=== PATIENT | female | born 1985 | race Caucasian/White ===

== ENCOUNTER → 2016-08-24 | Outpatient (CLI) | payer OTHER ==
[~2016-08-24] MED LIST: ACETAMINOHPEN/C1 TAB PO; ADVAIR 250/501 EA INH; ADVAIR 500/501 E1 INH; ALBUTEROL0.09 MG/A2 IH; ALBUTEROL0.09 MG/A2 INH; ALLERGY RELIEF10 M1 PO; ANAPROX DS550 MG PO; ASPIR LOW81 MG PO; ASPIRIN ENTERIC81 M1 PO; AUGMENTIN 875 M1 TA1 PO; BACTROBAN CREAM15 GM PO; BACTROBAN22 TP; BENADRYL50 MG PO; BENTYL10 MG PO; BREO ELLIPTA 21 EACH IH; BUSPAR5 MG PO; CARAFATE1 G1 PO; CARDIZEM CD240 M1 PO; CARTIA XT120 MG PO; CEFEPIME1 GM/50 ML IV; CEFTIN250 MG PO; CEFTRIAXON1 GM/50 ML IV; CEFTRIAXON2 GM/50 ML IV; CEFTRIAXONE2 G1 IV; CEFUROXIME AXE250 MG PO; CENTRUM COMPLE1 EACH PO; CEPHALEXIN500 M1 PO; CILOXAN 10 ML10 ML OP; CILOXAN 5 ML5 ML OT; CIPRO250 MG PO; CIPRO500 MG PO; CIPRO750 MG PO; CIPROFLOXACIN500 MG PO; CLARITIN10 MG PO; CLINDAMYCIN150 MG PO; COMBIVENT1 ARO IH; CORDROL20 MG PO; CYCLOBENZAPRINE10 MG PO; Carafate1 GM PO; DARVOCET N 1001 TAB PO; DELTASONE20 MG PO; DIFLUCAN150 MG PO; DILTIAZEM ER240 M1 PO; DILTIAZEM HCL120 M2 PO; DILTIAZEM HYDR180 M2 PO; DOXYCYCLINE HY100 M5 PO; DOXYCYCLINE MO100 M1 PO; DOXYCYCLINE MO100 MG PO; DOXYCYCLINE100 M3 PO; DOXYCYCLINE100 MG PO; DUONEB 3 MG/3 ML3 M1 INH; EFFEXOR25 MG; EFFEXOR25 MG PO; ESTER-C 1,0001 EACH PO; FLAGYL500 M1 IV; FLEXERIL10 MG PO; FLONASE 0.05% 121 EA NAS; FLONASE ALLERG9.9 ML NS; FLONASE0.05 MG/AC NS; FLOVENT 220 M220 MCG INH; FLOVENT0.044 MG/A IH; FUROSEMIDE40 MG PO; HEPARIN LOCK F1 U/ML IV; HYDROCODONE BIT1 T11 PO; IBU-8800 MG PO; KEFLEX500 MG PO; LAMICTAL1 TAB PO; LAMICTAL150 MG PO; LAMICTAL200 MG PO; LAMICTAL25 MG PO; LASIX40 MG PO; LATUDA PO; LEVAQUIN750 M1 PO; LEVOFLOXACIN500 MG PO; MACROBID100 M1 PO; MAXIPIME1 GM IV; MEDROL DOSEPAK4 MG PO; MIRALAX POWDER255 GM PO; MOTRIN600 MG PO; MOTRIN800 MG PO; Motrin,Rufen400 MG PO; Motrin,Rufen800 MG PO; NASAL SPRAY 1515 ML NAS; NKHM; NORCO 10-325 T1 EACH PO; OMEPRAZOLE40 MG PO; OMNICEF300 MG PO; ORASONE20 MG PO; OSPHENA60 M1 PO; OSTERA TABLET1 EACH PO; PEPCID20 MG PO; PERCOCET 325 MG1 TA7 PO; PHENERGAN W/DM120 ML PO; PHENERGAN25 M1 PO; PREDNICOT10 MG PO; PREDNICOT20 MG PO; PREDNISONE10 MG PO; PREDNISONE20 MG PO; PREDNISONE5 MG PO; PRILOSEC20 M1 PO; PRILOSEC40 M1 PO; PRILOSEC40 MG PO; PROAIR HFA0.09 MG/AC IH; PROAIR HFA0.09 MG/AC INH; PROTONIX20 MG PO; PROTONIX40 M1 PO; PROVENTIL0.09 MG/A1 INH; PYRIDIUM200 M1 PO; PYRIDIUM200 MG PO; Phenergan25 MG PO; SAPHRIS PO; SAPHRIS5 MG PO; SAPHRIS5 MG SL; SEROQUEL50 MG PO; SINGULAIR10 M1 PO; SINGULAIR10 MG PO; STERAPRED DS10 MG PO; TESSALON PERLE100 M1 PO; TOBREX OPHTH O3.5 GM OPH; TRAMADOL HCL50 MG PO; TRAZODONE100 MG PO; TRIAMCINOLONE AC0.1% T; TYLENOL WITH CO1 TA1 PO; Tobradex 0.3-0.15 ML OT; ULTRAM50 MG PO; VENTOLIN H0.09 MG/AC INH; VENTOLIN,PR2 MG/5 ML INH; VENTOLIN0.09 MG/AC INH; VIBRA-TAB100 M1 PO; VIBRA-TAB100 MG PO; VIBRAMYCIN100 M1 IV; VIBRAMYCIN100 MG PO; VICODIN 5-3001 EACH PO; VICODIN 5/500 505 MG PO; VICODIN 500 MG-1 TAB PO; VICODIN ES 7501 TA1 PO; VICODIN1 TAB PO; VITAMIN D10000 UNIT PO; VITAMIN D350000 UNIT PO; VITAMIN D50000 I3 PO; VOLTAREN50 M1 PO; VOLTAREN50 MG PO; Ventolin 02.5 MG/3 M NEB; Vibra-Tab100 MG PO; XANAX0.5 MG PO; XANAX1 MG PO; XARE20MG PO; ZANAFLEX4 M2 PO; ZANTAC 300300 MG PO; ZANTAC150 MG PO; ZITHROMAX Z PA250 MG PO; ZITHROMAX250 MG PO; ZOFRAN ODT4 MG SL; ZOFRAN4 MG PO; ZYRTEC10 MG PO; Zofran4 MG PO
== END | disposition home or self-care (01) ==
LOC: MEDIPORT 02:15
DX: I87.8 Other specified disorders of veins (principal)

== ENCOUNTER 2016-09-13 19:51 | Emergency (ER) | payer OTHER ==
[~2016-09-13] VITALS: Ht 175.2 cm; Wt 115.7 kg
[2016-09-13] MEDS ORDERED: ZITHROMAX250 MG PO (21:29)
[2016-09-13] MEDS ORDERED: TOBREX OPHTH O3.5 GM OPH (21:29)
[2016-09-13] MEDS ORDERED: Bactroban Oint22 GM T (21:29)
== END 2016-09-13 21:29 | disposition home or self-care (01) ==
LOC: ED 19:51
DX: S30.861A Insect bite (nonvenomous) of abdominal wall, initial encounter (principal); H00.014 Hordeolum externum left upper eyelid; L02.211 Cutaneous abscess of abdominal wall; K21.9 Gastro-esophageal reflux disease without esophagitis; Z88.0 Allergy status to penicillin; Z88.1 Allergy status to other antibiotic agents; Z88.2 Allergy status to sulfonamides; Z91.018 Allergy to other foods; Z79.899 Other long term (current) drug therapy; W57.XXXA Bitten or stung by nonvenomous insect and other nonvenomous arthropods, initial encounter; Y93.89 Activity, other specified; Y92.9 Unspecified place or not applicable; Y99.9 Unspecified external cause status

== ENCOUNTER 2016-09-21 16:17 | Emergency (ER) | payer OTHER ==
[~2016-09-21] VITALS: Ht 170.1 cm; Wt 113.4 kg
--- NOTE | ~2016-09-21 | EKG ---
[place], [place] ELECTROCARDIOGRAM REPORT [id number] UNIT #: [id number] ROOM: DOCTOR: DONATO FLORES MD BIRTHDATE: [birth year] DOS: 09/21/2016 TIME: 1659 hours. FINDINGS: 1. Normal sinus rhythm at a rate of 92. 2. Normal EKG. DNOATO FLORES MD CM:EKGRPT:ELECTROCARDIOGRAM REPORT [id number] DONATO FLORES MD
[~2016-09-21 16:17] MED LIST changes: +Bactroban Oint22 GM T
[2016-09-21 17:10] LABS: BASO # 0.1 10*3/uL (0.0-0.1); BASO % 0.7 % (0.0-1.0); EOS # 0.1 10*3/uL (0.0-0.4); EOS % 1.4 % (1.0-4.0); HEMATOCRIT 43.8 % (37.0-47.0); HEMOGLOBIN 14.2 g/dl (12.0-16.0); LYMPH # 2.8 10*3/uL (1.3-4.4); LYMPH % 33.2 % (27.0-41.0); MEAN CELL VOLUME 84.2 fl (81.0-99.0); MEAN CORPUSCULAR HGB 27.3 pg (27.0-31.0); MEAN CORPUSCULAR HGB CONC 32.4 g/dl (33.0-37.0); MEAN PLATELET VOLUME 9.3 fl (9.6-12.3); MONO # 0.5 10*3/uL (0.1-1.0); MONO % 5.4 % (3.0-9.0); NEUT % 59.1 % (47.0-73.0); PLATELET COUNT AUTOMATED 289 10*3/uL (130-400); RED CELL DISTRI WIDTH 13.7 % (0-14.5); WHITE BLOOD COUNT 8.5 10*3/uL (4.8-10.8)
[2016-09-21 17:18] LABS: PROTHROMBIN TIME 10.3 SECONDS (9.0-12.4)
[2016-09-21 17:26] LABS: ALBUMIN 4.1 gm/dl (3.1-4.5); ALKALINE PHOSPHATASE 129 U/L (45-117); BILIRUBIN, TOTAL 0.5 mg/dl (0.2-1.0); BUN 14 mg/dl (7-24); CARBON DIOXIDE 23 mmol/L (21-32); CHLORIDE 110 mmol/L (98-107); CPK 34 U/L (26-192); EST GLOM FILT AFRICAN AMERICAN > 60 ml/min; GLUCOSE 87 mg/dL (65-99); MAGNESIUM 2.3 mg/dL (1.5-2.1); POTASSIUM 4.2 mmol/L (3.5-5.1); SGOT/AST 9 IU/L (3-35); SGPT/ALT 17 U/L (12-78); SODIUM 144 mmol/L (136-145); TOTAL PROTEIN 8.1 gm/dL (6.4-8.2)
[2016-09-21 17:28] LABS: CKMB < 0.5 ng/ml (0.5-3.6); TROPONIN I < 0.015 ng/ml (<0.045)
== END 2016-09-21 18:40 | disposition home or self-care (01) ==
LOC: ED 16:17
PROVIDERS: Registered Nurse
DX: R07.89 Other chest pain (principal); M94.0 Chondrocostal junction syndrome [Tietze]; Z88.0 Allergy status to penicillin; Z88.1 Allergy status to other antibiotic agents; Z91.018 Allergy to other foods; Z88.8 Allergy status to other drugs, medicaments and biological substances; Z79.899 Other long term (current) drug therapy

== ENCOUNTER → 2016-10-14 | Outpatient (CLI) | payer OTHER ==
[~2016-10-14] MED LIST changes: +CLEOCIN HCL300 MG PO; +ZANTAC 150150 MG PO
== END | disposition home or self-care (01) ==
LOC: MEDIPORT 10-10 08:00
DX: Z45.2 Encounter for adjustment and management of vascular access device (principal)

== ENCOUNTER 2016-10-17 10:21 | Inpatient (IN) | payer OTHER ==
[~2016-10-17] VITALS: Ht 160 cm; Wt 116.3 kg
--- NOTE | ~2016-10-17 | PR ---
[place], [place] PROGRESS NOTE NAME: GUANACO HAIR [facility] #: [id number] UNIT #: [id number] ROOM: 407 DOCTOR: MEHDI JEAN MD,MIGUEL A BIRTHDATE: [birth year] DOS: 10/20/2016 PULMONARY PROGRESS NOTE SUBJECTIVE: The patient was seen and examined on 10/20/2016, resting comfortably in the bed, reduction and improvement in symptoms of coughing and wheezing as well as shortness of breath was noted. OBJECTIVE: VITAL SIGNS: Normal temperature, respiratory rate 18, heart rate 83, blood pressure 134/90. Pulse oxygen saturation on room air 96% saturation. HEENT: Examination shows no acute change. NECK: Supple. CARDIOVASCULAR: S1, S2 audible. LUNGS: Noted without any wheezing or crackles at the present time. ABDOMEN: Soft, nontender. IMPRESSION: Resolving acute tracheobronchitis and exacerbation of bronchial asthma with current medical management. The culture of the sputum preliminary showing normal miguel angel on 10/18/2016, final culture results were pending. PLAN OF TREATMENT: Discharge the patient on oral antibiotics, bronchodilators and continue other previous treatment. Outpatient followup appointment to be established post-discharge. MIGUEL A HARDING MD CM:ISIS [id number] MIGUEL A JEAN MD 10/21/167 interface
--- NOTE | ~2016-10-17 | PR ---
[place], [place] PROGRESS NOTE NAME: GUANACO HAIR [facility] #: [id number] UNIT #: [id number] ROOM: 407 DOCTOR: ROULA BAER MD BIRTHDATE: [birth year] DOS: 10/20/2016 SUBJECTIVE: The patient states that she feels good, does not have any complaints, wants to go home because it is her kids last day at school. OBJECTIVE: VITAL SIGNS: Graphic trend shows a pressure 113/72, pulse of 80, respirations 18, temperature 98.3. LUNGS: Diminished breath sounds. HEART: Regular. ABDOMEN: Soft. EXTREMITIES: Without any edema. LABORATORY DATA: Sputum culture preliminary shows normal miguel angel. Glucose 79, BUN 12, creatinine 0.65. Electrolytes were normal. WBC count is 7.8, hemoglobin 12.6, hematocrit 39.5. ASSESSMENT AND PLAN: 1. Acute exacerbation of asthma. The patient is doing much improved. She did receive her nebulizer yesterday, breathing treatments and Pulmicort will be started. 2. History of MediPort placement. The MediPort site looks fine. She does not need any IV antibiotics. The plan is to discharge her to home today. ROULA BAER MD CM:PNTRANS [id number] ROULA BAER MD 10/20/162043 interface
--- NOTE | ~2016-10-17 | WRIGHTHP ---
[place], [place] PATIENT HISTORY AND PHYSICAL EXAM NAME: GUANACO HAIR [facility] #: [id number] UNIT #: [id number] ROOM: 407 DOCTOR: ROULA BAER MD BIRTHDATE: [birth year] DOS: 10/18/2016 HISTORY OF PRESENT ILLNESS: The patient is not known to me. She is 30 years old and has had multiple admissions to the hospital over the last several years. She currently follows with Dr. 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 Hutchinson, who advised admission, she came to the Emergency Room where she was evaluated. Chest x-ray was negative. She was admitted with acute respiratory distress. She denies having any chest pains, palpitations, does not have any fever or chills. The patient states that her nebulizer has not been working and so she has not been taking any breathing treatments at all. PAST MEDICAL HISTORY: Significant for, 1. Moderate intermittent asthma. 2. Noncompliance and poor insight to medical problems. MEDICATIONS: Singulair, omeprazole, and Symbicort. SOCIAL HISTORY: Nonsmoker, does not use any alcohol. She has 2 children. She lives with her boyfriend. She states that her mother is healthy. She does not know the whereabouts of her father and her stepsiblings all healthy. PHYSICAL EXAMINATION: GENERAL: She is a well-built white female in no distress. VITAL SIGNS: Shows a blood pressure 142/70, pulse of 80, respirations 16, afebrile. HEAD AND NECK: Negative. LUNGS: Diminished breath sounds, scattered wheezes heard bilaterally. HEART: Regular. ABDOMEN: Obese. EXTREMITIES: Without any edema. ASSESSMENT AND PLAN: 1. The patient who presents with increased shortness of breath for the last few days with acute exacerbation of bronchial asthma. The patient is on maximal treatment ____ with bronchodilators and Singulair. We will add steroids, antibiotics and breathing treatments and asked whether she would need a prescription for nebulizer, she declined. 2. Noncompliance with poor insight to medical problems. Discussed with case management. They recommended that she get a nebulizer for the future use at home, hopefully we can avoid repeated admissions she has had over the years. Dr. Hutchinson has been consulted. [place], [place] PATIENT HISTORY AND PHYSICAL EXAM [facility]: [id number] UNIT #: [id number] ROOM: 407 DOCTOR: ROULA BAER MD BIRTHDATE: [birth year] ROULA BAER MD CM:HISPHYS:PATIENT HISTORY AND PHYSICAL EXAMINATION 213 ROULA BAER MD 10/19/16 0049 interface
--- NOTE | ~2016-10-17 | DS ---
[place], [place] DISCHARGE SUMMARY NAME: GUANACO HAIR [facility] #: [id number] UNIT #: [id number] ROOM: 407 DOCTOR: ROULA BAER MD BIRTHDATE: [birth year] DOS: 10/20/2016 DIAGNOSES: 1. Moderate in persistent asthma with acute exacerbation. 2. History of MediPort placement. 3. Noncompliance with poor insight to medical problems. HOSPITAL COURSE: This patient is 30 years old, comes in with complaints of difficulty breathing. The patient does not have a working nebulizer at home, has not taken any breathing treatments for a while. She was seen by Dr. Hutchinson recommended admission. After admission, the patient had normal lactic acid, normal white cell count. Blood cultures were done. Sputum cultures were done and they have all come back negative. Chest x-ray shows no evidence of any pneumonia. The patient was placed on steroids, breathing treatments. There has been improvement in her bronchospasm. White cell count continues to remain normal. Comprehensive showed of unknown etiology, which is improved and become normal. The patient is stable today. She is requesting she be discharged and so arrangements are being made. DISCHARGE MEDICATIONS: Pulmicort 0.5 twice a day, doxycycline 100 b.i.d. for 7 days, prednisone tapering dose, Xanax 0.5 t.i.d. p.r.n., DuoNeb q.4, loratadine 10 daily, Singulair 10 daily, multivitamin one tablet daily, Tessalon Perles t.i.d. p.r.n., ranitidine 150 at bedtime, albuterol 2 puffs q.i.d. p.r.n. ROULA BAER MD CM:DISCHARG 0800 [id number] ROULA BAER MD 10/20/16 1514 interface
--- NOTE | ~2016-10-17 | CON ---
[place], [place] REPORT OF CONSULTATION NAME: GUANACO HAIR [facility] #: [id number] UNIT #: [id number] ROOM: 407 DOCTOR: MIGUEL A MAYA MD BIRTHDATE: [birth year] DOS: 10/18/2016 CONSULTATION REQUESTED BY: Dr. Malina Abreu. REASON FOR CONSULTATION: To assess the patient for ongoing acute exacerbation of bronchial asthma. HISTORY OF PRESENT ILLNESS: A 30-year-old white female who has been known to me. She was seen in my office earlier this week and noted with acute exacerbation of bronchial asthma and acute bronchitis. She only choose to take the antibiotics for this patient not to corticosteroids. The patient's symptoms were worsened, not responding to treatment, requiring assessment in the Emergency Room on 10/17/2016. The patient was noted with progressive worsening of respiratory symptoms with acute exacerbation of bronchial asthma and was hospitalized for further medical management. The patient denies any symptoms of chest pain. Cough has been noted with minimal sputum expectoration. Continuous wheezing was noted, tightness in the chest, shortness of breath at rest and with exertion. REVIEW OF SYSTEMS: CONSTITUTIONAL: Denies symptoms of chills, but complains of low-grade fever at home and also reported to fatigue and tiredness. EYES: Denies any burning, redness, or tenderness. EARS, NOSE, AND THROAT: Denies sore throat, hoarseness, otalgia, postnasal drainage or epistaxis. CARDIOVASCULAR: Denies anginal pain, edema or pain of the lower extremities. GASTROINTESTINAL: Denies dysphagia, nausea, vomiting, diarrhea, abdominal pain, hematemesis, melena, or hematochezia. SKIN: Denies any lesions or rashes. MUSCULOSKELETAL: Denies acute joint pain, redness, or tenderness. CENTRAL NERVOUS SYSTEM: Denies any seizures, dizziness, or headache. Remaining systems were reviewed with the patient, they were noted all negative. PAST MEDICAL HISTORY: 1. History of uncomplicated severe persistent bronchial asthma. 2. Allergic rhinitis. 3. Obstructive sleep apnea disorder for patient presently noncompliant with the treatment. 4. Chronic moderate to severe obesity. 5. Gastroparesis, chronic and severe. 6. History of type 2 diabetes mellitus. 7. Allergic rhinitis. 8. History of recurrent aspiration. 9. Atrial fibrillation with chronic anticoagulation. 10. Thrombophlebitis related to PICC, resolved. 11. Poor peripheral venous access. PAST SURGICAL HISTORY: 1. MediPort insertion and removal x4. 2. Hiatal hernia surgery repair. [place], [place] REPORT OF CONSULTATION [facility] [id number] UNIT #: [id number] ROOM: 407 DOCTOR: MEHDI JEAN MD,MIGUEL A BIRTHDATE: [birth year] 3. Complete hysterectomy. 4. T and A. 5. Bilateral ear tube insertion. 6. Sling for the prolapsed bladder. 7. Several therapeutic bronchoscopy. 8. Past PICC line insertion. 9. Multiple upper endoscopies. SOCIAL HISTORY: The patient is , has 2 children, lives at home. Denies history of alcohol or illicit drug use. FAMILY HISTORY: The patient was noted both parents living without any known medical illnesses. CURRENT MEDICATIONS ADMINISTERED: Noted use of Singulair, loratadine, DuoNeb. IV Solu-Medrol, not taken by the patient. Xanax, doxycycline intravenously. ALLERGIES: The drug allergy history was noted as allergy. 1. PENICILLIN. 2. SULFA DRUGS. 3. CIPROFLOXACIN. 4. BIAXIN. 5. RAGLAN. 6. DULERA. PHYSICAL EXAMINATION: GENERAL: A 30-year-old female who has been noted currently awake and alert without any distress. Height of 5 feet 7 inches, weight of 256 pounds, BMI of 45.4. VITAL SIGNS: Normal temperature, respiratory rate 16-20, heart rate 78-102, blood pressure 120/76-113/61. Pulse oxygen saturation of the patient noted on room air 97% saturation. HEENT: Examination shows head is atraumatic. Eyes nonicterus. NECK: Supple. CARDIOVASCULAR: S1, S2 is audible. LUNGS: The patient is noted without any crackles. Moderate expiratory wheezing. ABDOMEN: Soft, obese, nontender. EXTREMITIES: Show no edema, clubbing or cyanosis. LABORATORY DATA: The CBC of the patient on yesterday shows WBC count of 6.9, hemoglobin, hematocrit and platelet count was normal. Lactic acid yesterday 1.1. PT/PTT were normal. CMP of the patient yesterday noted as normal in general. Chest x-ray 1 view shows MediPort in place on the left side without any acute pulmonary infiltration. IMPRESSION: 1. Failed outpatient treatment, acute exacerbation of bronchial asthma and tracheobronchitis, refused use of corticosteroids, currently treated with only antibiotics, which were noted effectively prior to the hospitalization in [place], [place] REPORT OF CONSULTATION NAME: GUANACO HAIR UNIT #: [id number] ROOM: 407 DOCTOR: MEHDI JEAN MD,MIGUEL A BIRTHDATE: [birth year] form. 2. History of obstructive sleep apnea disorder and allergic rhinitis. 3. Past history of recurrent aspiration for this patient, which has been resolved for this patient after the current hiatal hernia surgical repair. PLAN OF TREATMENT: Continue the patient's bronchodilators, oxygen supplementation, monitor respiratory status closely. All other previous treatment as in progress will be continued. Further treatment changes will be done based on progression of the illness. Ordered sputum for Gram stain and culture. Consider therapeutic bronchoscopy if the respiratory symptoms remains persistent. Ordered the flutter valve use. Also, start the patient on Mucinex. Thanks for allowing me to participate in the care of this patient. MIGUEL A HARDING MD CM:CONSTR:REPORT OF CONSULTATION 1419 10/19/16 0842 interface
--- NOTE | ~2016-10-17 | PR ---
[place], [place] PROGRESS NOTE NAME: GUANACO HAIR [facility] #: [id number] UNIT #: [id number] ROOM: 407 DOCTOR: MEHDI JEAN MD,MIGUEL A BIRTHDATE: [birth year] DOS: 10/19/2016 PULMONARY PROGRESS NOTE SUBJECTIVE: The patient has been noted with coughing, which remained nonproductive, also complaining of tightness in the chest noted with wheezing and shortness of breath. Refused to take any corticosteroids. Continue simple bronchodilators for the patient and the antibiotics. OBJECTIVE: VITAL SIGNS: For the patient which were recorded shows the temperature noted normal, respiratory rate 18, heart rate 88, blood pressure 114/65. The pulse oxygen saturation on room air 98% saturation recorded. HEENT: Showed no new change. NECK: Supple. CARDIOVASCULAR: S1, S2 is audible. LUNGS: Shows moderate reduced breath sounds, diffuse expiratory wheezing. There were no crackles. ABDOMEN: Soft, nontender. LABORATORY DATA: There were no labs done today. IMPRESSION: 1. The patient with ongoing acute exacerbation of bronchial asthma with acute tracheobronchitis. 2. Past history of gastroesophageal reflux much better after the current surgical intervention. PLAN OF TREATMENT: Continue the current plan of management. The routine lab was done for the patient to be done as a CMP tomorrow morning and CBC. Possible consideration of bronchoscopy for the patient this week as well if the symptoms remain persistent. MIGUEL A HARDING MD CM:PNTRANS [id number] MIGUEL A JEAN MD 10/20/16226 interface
--- NOTE | ~2016-10-17 | PR ---
[place], [place] PROGRESS NOTE NAME: GUANACO HAIR [facility] #: [id number] UNIT #: [id number] ROOM: 407 DOCTOR: ROULA BAER MD BIRTHDATE: [birth year] DOS: 10/19/2016 SUBJECTIVE: The patient is doing fine without any complaint. Denies any chest pains, palpitations or shortness of breath. PHYSICAL EXAMINATION: GENERAL: The patient is awake and alert and oriented. LUNGS: Diminished breath sounds. HEART: Regular. ABDOMEN: Soft. EXTREMITIES: Without any edema. ASSESSMENT AND PLAN: 1. Acute asthmatic exacerbation. On IV steroids. We will taper the steroids down. 2. Noncompliance with poor insight to medical problems and nebulizer was ordered and they should be here today. The plan is to discharge her to home tomorrow. 3. Hypochloremia for unknown etiology. Repeat labs to be ordered. ROULA BAER MD CM:PNTRANS [id number] [id number] ROULA BAER MD 10/20/16 0036 interface
[~2016-10-17 10:21] MED LIST changes: -CLEOCIN HCL300 MG PO; -ZANTAC 150150 MG PO
[2016-10-17 10:29] VITALS: BP 151/91
[2016-10-17] MEDS ORDERED: ZANTAC 150150 MG PO (10:30)
[2016-10-17 10:55] LABS: BASO % 0.6 % (0.0-1.0); EOS # 0.2 10*3/uL (0.0-0.4); EOS % 3.1 % (1.0-4.0); HEMATOCRIT 38.9 % (37.0-47.0); HEMOGLOBIN 12.7 g/dl (12.0-16.0); LYMPH # 3.1 10*3/uL (1.3-4.4); LYMPH % 44.9 % (27.0-41.0); MEAN CELL VOLUME 84.9 fl (81.0-99.0); MEAN CORPUSCULAR HGB 27.7 pg (27.0-31.0); MEAN CORPUSCULAR HGB CONC 32.6 g/dl (33.0-37.0); MEAN PLATELET VOLUME 9.2 fl (9.6-12.3); MONO # 0.3 10*3/uL (0.1-1.0); NEUT # 3.2 10*3/uL (2.3-7.9); NEUT % 46.1 % (47.0-73.0); PLATELET COUNT AUTOMATED 266 10*3/uL (130-400); RED BLOOD COUNT 4.58 10*6/uL (4.10-5.10); RED CELL DISTRI WIDTH 13.2 % (0-14.5); WHITE BLOOD COUNT 6.9 10*3/uL (4.8-10.8)
[2016-10-17 11:03] LABS: INTERNATIONAL NORM RATIO 0.9 (2.0-3.5)
[2016-10-17 11:10] LABS: ALBUMIN 3.5 gm/dl (3.1-4.5); ALKALINE PHOSPHATASE 105 U/L (45-117); BILIRUBIN, TOTAL 0.2 mg/dl (0.2-1.0); BUN 10 mg/dl (7-24); C-REACTIVE PROTEIN 1.22 MG/DL (0-0.3); CARBON DIOXIDE 25 mmol/L (21-32); CHLORIDE 112 mmol/L (98-107); CPK 34 U/L (26-192); EST GLOM FILT AFRICAN AMERICAN > 60 ml/min; GLUCOSE 93 mg/dL (65-99); MAGNESIUM 2.2 mg/dL (1.5-2.1); POTASSIUM 3.8 mmol/L (3.5-5.1); SGOT/AST 9 IU/L (3-35); SGPT/ALT 16 U/L (12-78); SODIUM 144 mmol/L (136-145)
[2016-10-17 11:11] LABS: CKMB < 0.5 ng/ml (0.5-3.6); TROPONIN I < 0.015 ng/ml (<0.045)
[2016-10-17 13:16] VITALS: BP 123/75
[2016-10-17 13:50] VITALS: BP 122/79
[2016-10-17] MEDS ORDERED: CEFUROXIME AXE250 MG PO (15:11)
[2016-10-17] MEDS ORDERED: VENTOLIN H0.09 MG/AC INH (15:11)
[2016-10-17] MEDS ORDERED: CLEOCIN HCL300 MG PO (15:12)
[2016-10-17 16:00] VITALS: BP 103/62
[2016-10-17 20:00] VITALS: BP 136/29
[2016-10-18] VITALS: BP 133/71
[2016-10-18] MEDS ORDERED: NEBULIZER (07:48)
[2016-10-18 08:00] VITALS: BP 113/61
[2016-10-18 12:00] VITALS: BP 120/76
[2016-10-18 16:00] VITALS: BP 118/80
[2016-10-18 20:00] VITALS: BP 126/84
[2016-10-19] VITALS: BP 117/70
[2016-10-19 08:00] VITALS: BP 114/65
[2016-10-19 12:00] VITALS: BP 130/81
[2016-10-19 16:00] VITALS: BP 131/84
[2016-10-19 20:00] VITALS: BP 105/63
[2016-10-20] VITALS: BP 113/72
[2016-10-20 06:12] LABS: BASO % 0.5 % (0.0-1.0); EOS # 0.4 10*3/uL (0.0-0.4); EOS % 4.6 % (1.0-4.0); HEMATOCRIT 39.5 % (37.0-47.0); HEMOGLOBIN 12.6 g/dl (12.0-16.0); LYMPH # 3.6 10*3/uL (1.3-4.4); LYMPH % 45.8 % (27.0-41.0); MEAN CELL VOLUME 85.1 fl (81.0-99.0); MEAN CORPUSCULAR HGB 27.2 pg (27.0-31.0); MEAN CORPUSCULAR HGB CONC 31.9 g/dl (33.0-37.0); MEAN PLATELET VOLUME 9.2 fl (9.6-12.3); MONO # 0.4 10*3/uL (0.1-1.0); MONO % 5.5 % (3.0-9.0); NEUT # 3.4 10*3/uL (2.3-7.9); NEUT % 43.3 % (47.0-73.0); PLATELET COUNT AUTOMATED 285 10*3/uL (130-400); RED BLOOD COUNT 4.64 10*6/uL (4.10-5.10); RED CELL DISTRI WIDTH 13.2 % (0-14.5); WHITE BLOOD COUNT 7.8 10*3/uL (4.8-10.8)
[2016-10-20 06:31] LABS: ALBUMIN 3.2 gm/dl (3.1-4.5); BUN 12 mg/dl (7-24); CARBON DIOXIDE 26 mmol/L (21-32); CHLORIDE 106 mmol/L (98-107); EST GLOM FILT AFRICAN AMERICAN > 60 ml/min; GLUCOSE 79 mg/dL (65-99); POTASSIUM 3.9 mmol/L (3.5-5.1); SGOT/AST 9 IU/L (3-35); SGPT/ALT 16 U/L (12-78); SODIUM 141 mmol/L (136-145)
[2016-10-20 06:34] LABS: ALKALINE PHOSPHATASE 96 U/L (45-117); BILIRUBIN, TOTAL 0.4 mg/dl (0.2-1.0); TOTAL PROTEIN 6.7 gm/dL (6.4-8.2)
[2016-10-20] MEDS ORDERED: DOXYCYCLINE100 MG PO (07:52)
[2016-10-20] MEDS ORDERED: PULMICORT RESP0.5 M1 INH (07:52)
[2016-10-20] MEDS ORDERED: PREDNISONE5 MG PO (07:52)
[2016-10-20 08:00] VITALS: BP 134/90
== END 2016-10-20 12:10 | disposition home or self-care (01) | DRG 202 ==
LOC: ED 10:21 → EDHOLD 11:46 → 4E 11:46
PROVIDERS: Emergency Medicine; Internal Medicine; Internal Medicine Critical Care Medicine
DX: J45.41 Moderate persistent asthma with (acute) exacerbation (principal); Z68.42 Body mass index [BMI] 45.0-49.9, adult; E87.8 Other disorders of electrolyte and fluid balance, not elsewhere classified; J20.9 Acute bronchitis, unspecified; K21.9 Gastro-esophageal reflux disease without esophagitis; J30.9 Allergic rhinitis, unspecified; I48.91 Unspecified atrial fibrillation; E66.01 Morbid (severe) obesity due to excess calories; Z88.8 Allergy status to other drugs, medicaments and biological substances; Z88.1 Allergy status to other antibiotic agents; Z88.0 Allergy status to penicillin; Z88.2 Allergy status to sulfonamides; Z91.018 Allergy to other foods; Z90.710 Acquired absence of both cervix and uterus; Z80.1 Family history of malignant neoplasm of trachea, bronchus and lung; Z83.49 Family history of other endocrine, nutritional and metabolic diseases; Z79.01 Long term (current) use of anticoagulants; Z79.899 Other long term (current) drug therapy

== ENCOUNTER 2016-11-17 16:31 | Inpatient (IN) | payer OTHER ==
[~2016-11-17] VITALS: Ht 170.2 cm; Wt 116.3 kg
--- NOTE | ~2016-11-17 | ST ---
[place], [place] EXERCISE STRESS TEST REPORT NAME: GUANACO HAIR [facility] #: [id number] UNIT #: [id number] ROOM: 508 DOCTOR: ANDREZ TAFOYA,AIYANA Garcia BIRTHDATE: [birth year] DOS: 11/18/2016 TREADMIL TEST WITH NUCLEAR CARDIOLITE SCAN. The patient is a 31-year-old female with recurrent complaints of chest pain without any previous history of cardiac stress testing. She is presently admitted to the [facility] with precordial left-sided chest pains. The patient's cardiac enzymes were negative and EKG was normal. The patient rated her left-sided chest pain as 5/10. The patient continued to have the same chest pain throughout stress testing phase. Baseline EKG showed normal sinus rhythm at the heart rate of 73 beats per minute. No significant ST-T abnormality. During the exercise and recovery phase, the patient did not develop any significant EKG abnormality compatible with myocardial ischemia. When patient reached 85% of her peak maximal heart rate, she was injected with Cardiolite. The patient reached a maximum heart rate of 164 beats per minute, which was 87% of the PMHR. Maximum blood pressure was 144 systolic over 78 diastolic. No significant EKG abnormality or cardiac dysrhythmias were observed on the cardiac cath technologist. IMPRESSION: Normal EKG part of the treadmill Cardiolite stress test at 87% PMHR. The patient had a constant left-sided chest pain since admission, which she rated as 5/10, unchanged with exercise or during recovery phase and the cardiac enzymes have been negative. Cardiolite results to be reported by Dr. Mynor Rios later today. AIYANA MAGUIRE MD CM:STRESS:EXERCISE STRESS TEST REPORT [id number] AIYANA MAGUIRE MD
--- NOTE | ~2016-11-17 | CON ---
[place], [place] REPORT OF CONSULTATION NAME: GUANACO HAIR [facility] #: [id number] UNIT #: [id number] ROOM: 508 DOCTOR: DONATO FLORES MD BIRTHDATE: [birth year] DOS: 11/18/2016 CHIEF COMPLAINT: Left shoulder pain, history of palpitations. HISTORY OF PRESENT ILLNESS: The patient is a 31-year-old woman who does have a long history of respiratory problems. She has had multiple hospitalizations in the past with exacerbations of her lung disease. She has a large problem with venous access and therefore she does have a MediPort in place. There is some concern that the MediPort is not functioning at this time. In addition, she does have a history of paroxysmal atrial fibrillation for which I have evaluated her in the past. When I last saw her in March 2015, we did place her on a direct oral anticoagulant. She took that for about a year and then stopped the drug. She states that she has not had any problems with palpitations in several months. She has had pain in her left anterior chest radiating into her left shoulder and neck intermittently for several months. She states that these come on without warning and last for several days before they resolve spontaneously. When the pain is in effect it is constant and is worsened by movement of her neck or arm. Yesterday, the pain was much worse than usual and therefore she came to the emergency room. Her electrocardiogram showed no acute changes and cardiac biomarkers were all normal. We were asked to assess her for the cause of her chest pain. The patient denies any associated diaphoresis, nausea or fevers. It is not associated with shortness of breath. PAST MEDICAL HISTORY: Includes 1. Asthma and obstructive lung disease with frequent exacerbations. 2. History of poor venous access requiring PICC lines and MediPorts in the past. 3. History of bacteremia due to a PICC line infection with subsequent deep venous thrombosis of her right arm. 4. Chronic anemia. 5. History of gastroparesis. 6. Gastroesophageal reflux disease. 7. Obesity. 8. Paroxysmal atrial fibrillation. 9. Hospitalization on 11/17/2016 with atypical chest pain, myocardial infarction ruled out. 10. History of hysterectomy, tonsillectomy, bladder sling times 2, myringotomy times 3. REVIEW OF SYSTEMS: The patient denies diplopia or loss of vision. She denies focal weakness. She denies fevers, chills, sweats or recent weight change. She denies nausea or vomiting. She denies orthopnea or PND. She denies cough, fevers or chills. She denies hemoptysis or hematemesis. She denies change in bowel or bladder habits. She denies blood in her urine or stool. She denies heat or cold intolerance. She denies any peripheral edema. She denies any skin rashes. The remainder of the review of systems is negative except as noted [place], [place] REPORT OF CONSULTATION NAME: GUANACO HAIR UNIT #: [id number] ROOM: 508 DOCTOR: DONATO FLORES MD BIRTHDATE: [birth year] above. MEDICATIONS: Prior to admission include albuterol inhaler q.i.d. as well as by nebulizer p.r.n., alprazolam 0.5 mg t.i.d. p.r.n., Tessalon Perles 100 mg t.i.d., loratadine 10 mg at bedtime, Singulair 10 mg at bedtime, and ranitidine 150 mg at bedtime. ALLERGIES: The patient has multiple allergies including PENICILLIN, SULFA, WALNUT TREES, , SILICONE, CIPROFLOXACIN, CLARITHROMYCIN, METOCLOPRAMIDE and MOMETASONE. FAMILY HISTORY: Her mother is healthy. She does not know her father very well, but believes that her father had lung cancer. She denies any family history of early coronary disease. SOCIAL HISTORY: The patient does not smoke or consume alcohol and denies the use of illegal drugs. PHYSICAL EXAMINATION: GENERAL: The patient is an overweight white female who is awake, alert and oriented. VITAL SIGNS: Pulse is 92 and regular, blood pressure is 118/71. She is afebrile. She weighs 116.3 kilograms with a body mass index of 40.1. HEENT: Normocephalic, atraumatic. Extraocular muscles are intact. Sclerae are clear. Pupils are equal, round and reactive to light. The oral mucosa is moist. Tongue is midline. NECK: Supple. She has no jugular distention. Carotids are full. I heard no bruits. She had no neck or supraclavicular masses. LUNGS: Respirations are unlabored. CHEST: Her chest is clear to auscultation and percussion. She had no presacral edema or chest wall tenderness. CARDIOVASCULAR: Her heart had a regular rhythm. She had a soft S4 gallop, but no S3 or murmur. The PMI is not displaced. She has no precordial heave, lift or thrill. She has tenderness over her left anterior chest, which partially reproduces her presenting symptoms. ABDOMEN: Obese, but otherwise benign, without masses, organomegaly or bruits. EXTREMITIES: Showed no edema. Peripheral pulses are easily palpated bilaterally. LABORATORY DATA: I reviewed her electrocardiogram, which showed sinus rhythm with nonspecific T-wave abnormalities in the anterior leads, but no acute changes. I also reviewed her pharmacologic stress test today. Her ejection fraction was 74%. She had no evidence for ischemia and the study was low risk. IMPRESSIONS: 1. Noncardiac chest pain, most likely musculoskeletal in origin. 2. Asthma and chronic lung disease with frequent exacerbations, patient is currently breathing easily. 3. Paroxysmal atrial fibrillation. The patient has not had any recent symptoms and has a [id number] score of 1. [place], [place] REPORT OF CONSULTATION NAME: [id number] UNIT #: [id number] ROOM: 508 DOCTOR: DONATO FLORES MD BIRTHDATE: [birth year] PLAN: The patient and I discussed the causes of her chest pain, I believe they are musculoskeletal in origin and she seems to be satisfied with that explanation. We also discussed her atrial fibrillation and my concern about her risk for stroke. Since she does have a CHADS-VASc score of 1score, I think that it would be reasonable to keep her on an aspirin daily for now; however, if her palpitations recur and if we diagnose recurrent atrial fibrillation, then she should be back on a direct oral anticoagulant indefinitely. The patient seems happy with that recommendation as well. I did tell her that she needed to be honest with herself and with us about her symptoms and I did ask her to follow up with us in the office. I have discussed these results with Dr. Galloway and I thank Dr. Galloway for asking our advice regarding her care. DONATO FLORES MD CM:CONSTR:REPORT OF CONSULTATION 1453 11/19/16 0114 interface
--- NOTE | ~2016-11-17 | WRIGHTHP ---
[place], [place] PATIENT HISTORY AND PHYSICAL EXAM NAME: GUANACO HAIR [facility] #: [id number] UNIT #: [id number] ROOM: 508 DOCTOR: AIYANA MAGUIRE MD BIRTHDATE: [birth year] DOS: 11/17/2016 HISTORY OF PRESENT ILLNESS: The patient was admitted with complaints of left-sided chest pains, which were unremitting, sharp, getting into her neck and arm. The patient does have chronic shortness of breath. There was no sweating or diaphoresis. After initial evaluation in the Emergency Department, patient was admitted and her cardiac enzymes were checked to be negative. The patient was taken for a cardiac stress test this morning. The patient complained of 5/10 scale chest pains. Chronic shortness of breath and wheezing with chronic history of bronchial asthma. REVIEW OF SYSTEMS: LUNGS: Chronic shortness of breath and wheezing. GASTROINTESTINAL: No nausea, vomiting, diarrhea or constipation. CARDIOVASCULAR SYSTEM: Complains of left-sided chest pain, radiating into the neck and left arm. No nausea or diaphoresis. PAST MEDICAL HISTORY: 1. Bronchial asthma. 2. MediPort placement. 3. Poor compliance with treatment. 4. Moderate obesity. FAMILY HISTORY: Noncontributory. SOCIAL HISTORY: Denies smoking cigarettes, alcohol and drug abuse. ALLERGIES: Known allergies to PENICILLIN, SULFA, QUINOLONES, METOCLOPRAMIDE, DULERA, SILICON, WALL-NUT. PHYSICAL EXAMINATION: GENERAL: The patient is alert and oriented x 3. No visible distress. HEENT AND NECK: Extraocular movements are intact. Sclerae are anicteric. Oral mucosa is moist and clean. No obvious facial weakness. Neck is supple without any lymphadenopathy. No thyromegaly. No JVD. No carotid arterial bruits. LUNGS: Clear to auscultation. No rhonchi. Somewhat decreased breath sounds and expiratory wheezing all over on lung auscultation. CARDIOVASCULAR SYSTEM: Heart rate is regular in rate and rhythm. S1 and S2 normally audible. No significant murmur or any other abnormal cardiac sounds. ABDOMEN: Soft, nontender. No obvious organomegaly. Bowel sounds are present. No obvious herniation. EXTREMITIES: Without significant cyanosis or edema. Warm to touch. CENTRAL NERVOUS SYSTEM: Alert and oriented x 3. Cranial nerves II-XII are intact. Speech is normal. The patient is able to move all extremities. Normal muscle strength. Deep tendon reflexes are equal on both sides. Plantars were downgoing. LABORATORY DATA: Negative cardiac enzymes. Chest x-ray without acute [place], [place] PATIENT HISTORY AND PHYSICAL EXAM [id number] UNIT #: [id number] ROOM: 508 DOCTOR: AIYANA MAGUIRE MD BIRTHDATE: [birth year] abnormality. Normal serum electrolytes, bilirubin, liver enzymes. Normal CBC. IMPRESSION AND PLAN: 1. The patient with left-sided chest pains from uncertain etiology, appears to be musculoskeletal. The patient underwent cardiac stress testing because of her chronic history of recurrent chest pains to rule out any serious coronary artery disease. Dr. Mynor Rios, the pond supervisor was on consult and once he reports cardiac stress test is normal, the patient can be discharged to home to follow up at the office with me. 2. Chronic history of bronchial asthma and chronic shortness of breath with wheezing, stable at this time. 3. The patient's cardiac enzymes were negative. AIYANA MAGUIRE MD CM:HISPHYS:PATIENT HISTORY AND PHYSICAL EXAMINATION [id number] AIYANA MAGUIRE MD 11/18/16 1119 interface
[~2016-11-17 16:31] MED LIST changes: +CLEOCIN HCL300 MG PO; +NEBULIZER; +PULMICORT RESP0.5 M1 INH; +ZANTAC 150150 MG PO
[2016-11-17 16:45] VITALS: BP 138/92
[2016-11-17 16:56] VITALS: BP 133/82
[2016-11-17 17:14] LABS: BASO # 0.1 10*3/uL (0.0-0.1); BASO % 0.6 % (0.0-1.0); EOS # 0.2 10*3/uL (0.0-0.4); EOS % 2.9 % (1.0-4.0); HEMATOCRIT 41.5 % (37.0-47.0); HEMOGLOBIN 13.9 g/dl (12.0-16.0); LYMPH # 2.6 10*3/uL (1.3-4.4); LYMPH % 32.3 % (27.0-41.0); MEAN CELL VOLUME 83.7 fl (81.0-99.0); MEAN CORPUSCULAR HGB CONC 33.5 g/dl (33.0-37.0); MEAN PLATELET VOLUME 9.2 fl (9.6-12.3); MONO # 0.4 10*3/uL (0.1-1.0); MONO % 5.4 % (3.0-9.0); NEUT # 4.7 10*3/uL (2.3-7.9); NEUT % 58.5 % (47.0-73.0); PLATELET COUNT AUTOMATED 270 10*3/uL (130-400); RED BLOOD COUNT 4.96 10*6/uL (4.10-5.10); RED CELL DISTRI WIDTH 13.3 % (0-14.5)
[2016-11-17 17:23] LABS: INTERNATIONAL NORM RATIO 0.9 (2.0-3.5)
[2016-11-17 17:31] LABS: ALBUMIN 3.7 gm/dl (3.1-4.5); ALKALINE PHOSPHATASE 116 U/L (45-117); BILIRUBIN, TOTAL 0.5 mg/dl (0.2-1.0); BUN 14 mg/dl (7-24); CARBON DIOXIDE 25 mmol/L (21-32); CHLORIDE 107 mmol/L (98-107); CPK 34 U/L (26-192); EST GLOM FILT AFRICAN AMERICAN > 60 ml/min; GLUCOSE 88 mg/dL (65-99); POTASSIUM 3.9 mmol/L (3.5-5.1); SGOT/AST 16 IU/L (3-35); SGPT/ALT 18 U/L (12-78); SODIUM 144 mmol/L (136-145); TOTAL PROTEIN 7.5 gm/dL (6.4-8.2)
[2016-11-17 17:34] LABS: CKMB < 0.5 ng/ml (0.5-3.6); TROPONIN I < 0.015 ng/ml (<0.045)
[2016-11-17 18:09] VITALS: BP 124/83
[2016-11-17 20:40] VITALS: BP 110/79
[2016-11-18] VITALS: BP 116/68
[2016-11-18 08:00] VITALS: BP 116/78
[2016-11-18 12:00] VITALS: BP 118/71
== END 2016-11-18 15:50 | disposition home or self-care (01) | DRG 313 ==
LOC: ED 16:31 → EDHOLD 19:36 → 5E 19:36
PROVIDERS: Registered Nurse
PROC: 4A02XM4 Measurement of Cardiac Total Activity, External Approach (ICD-10-PCS; principal; 2016-11-18)
DX: R07.89 Other chest pain (principal); Z68.41 Body mass index [BMI] 40.0-44.9, adult; J44.9 Chronic obstructive pulmonary disease, unspecified; E66.9 Obesity, unspecified; D64.9 Anemia, unspecified; I48.0 Paroxysmal atrial fibrillation; K21.9 Gastro-esophageal reflux disease without esophagitis; Z90.710 Acquired absence of both cervix and uterus; Z88.1 Allergy status to other antibiotic agents; Z88.8 Allergy status to other drugs, medicaments and biological substances; Z88.2 Allergy status to sulfonamides; Z80.1 Family history of malignant neoplasm of trachea, bronchus and lung; Z82.49 Family history of ischemic heart disease and other diseases of the circulatory system; Z88.0 Allergy status to penicillin

== ENCOUNTER → 2016-12-15 | Outpatient (CLI) | payer OTHER ==
[2016-12-15] VITALS (7 sets, daily range): BP systolic 128–154; BP diastolic 76–100
--- NOTE | ~2016-12-15 | O ---
[place], [place] OPERATIVE NOTE [facility]: [id number] UNIT #: [id number] ROOM: DOCTOR: KAITLIN TAFOYA [facility] BIRTHDATE: [birth year] DOS: 12/15/2016 The patient's previous power port is not functional, lost a lot of weight and accessed often but not functioning and hence under maximum protective barrier technique, full prep and drape with perioperative antibiotics, previous power port was removed successfully, tunnel catheter along with the catheter. Using antibiotics it was treated and subcutaneous layer sutured up with chromic and skin was closed with 4-0 Vicryl and a new access was obtained, micro access, left subclavian and 30 cm of catheter was placed into the port. Using micro sheath with 0.035 guidewire and with the help of a peel-away sheath, catheter was placed through the superior vena cava into the right atrium and the power port was placed and the power port was secured optimally, subcutaneous sutured up with chromic, skin was closed with 4-0 Vicryl. I did explain to the patient because of the ____and the need to go through the ____. The patient tolerated the procedure well and the access obtained and access function is good. No complications noted. Blood return was good, flushed well and heparin was placed. The patient tolerated the procedure well. Outcome is good. No complication noted. Under fluoroscopy, catheter position was good. Previous catheter and the port were taken out intact without any residual left. The patient tolerated the procedure well. No complications noted. SUMMARY: Successful removal of the nonfunctioning tunnel power port and new power port was placed and function was good. No complications. The patient tolerated the procedure well. ROCKY MADRIGAL MD CM:OPRECORD:OPERATIVE NOTE [phone] ROCKY MADRIGAL MD [facility] 12/16/16 0215 interface
== END | disposition home or self-care (01) ==
LOC: SDC 12-13 08:45 → MEDIPORT 12:00
DX: Z45.2 Encounter for adjustment and management of vascular access device (principal); I87.8 Other specified disorders of veins; J45.909 Unspecified asthma, uncomplicated; K21.9 Gastro-esophageal reflux disease without esophagitis; J43.9 Emphysema, unspecified; F41.9 Anxiety disorder, unspecified

== ENCOUNTER 2016-12-19 10:04 | Emergency (ER) | payer OTHER ==
[~2016-12-19] VITALS: Ht 170.1 cm; Wt 113.4 kg
== END 2016-12-19 13:55 | disposition home or self-care (01) ==
LOC: ED 10:04
DX: R07.9 Chest pain, unspecified (principal); M25.512 Pain in left shoulder; Z88.0 Allergy status to penicillin; Z88.2 Allergy status to sulfonamides; Z88.1 Allergy status to other antibiotic agents; Z88.8 Allergy status to other drugs, medicaments and biological substances; Z91.018 Allergy to other foods

== ENCOUNTER 2017-01-12 06:04 | Emergency (ER) | payer OTHER ==
[~2017-01-12] VITALS: Ht 175.2 cm; Wt 113.4 kg
[2017-01-12] MEDS ORDERED: Tobrex Ophth S2.5 ML OPH (06:34)
[2017-01-12] MEDS ORDERED: ACULAR 3ML 3 ML5 ML OPH (06:34)
== END 2017-01-12 07:01 | disposition home or self-care (01) ==
LOC: ED 06:04
DX: S05.01XA Injury of conjunctiva and corneal abrasion without foreign body, right eye, initial encounter (principal); K21.9 Gastro-esophageal reflux disease without esophagitis; E66.01 Morbid (severe) obesity due to excess calories; Z87.11 Personal history of peptic ulcer disease; Z90.710 Acquired absence of both cervix and uterus; Z98.890 Other specified postprocedural states; Z90.89 Acquired absence of other organs; Z88.0 Allergy status to penicillin; Z88.2 Allergy status to sulfonamides; Z91.010 Allergy to peanuts; Z88.1 Allergy status to other antibiotic agents; Z88.5 Allergy status to narcotic agent; X58.XXXA Exposure to other specified factors, initial encounter; Y93.89 Activity, other specified; Y92.89 Other specified places as the place of occurrence of the external cause; Y99.9 Unspecified external cause status

== ENCOUNTER 2017-01-30 15:55 | Emergency (ER) | payer OTHER ==
[~2017-01-30] VITALS: Ht 170.1 cm; Wt 113.4 kg
[~2017-01-30 15:55] MED LIST changes: +ACULAR 3ML 3 ML5 ML OPH; +Tobrex Ophth S2.5 ML OPH
== END 2017-01-30 17:36 | disposition home or self-care (01) ==
LOC: ED 15:55
DX: Z48.01 Encounter for change or removal of surgical wound dressing (principal); Z88.0 Allergy status to penicillin; Z88.2 Allergy status to sulfonamides; Z88.1 Allergy status to other antibiotic agents; Z91.018 Allergy to other foods; Z88.8 Allergy status to other drugs, medicaments and biological substances

== ENCOUNTER 2017-02-13 12:24 | Inpatient (IN) | payer OTHER ==
[~2017-02-13] VITALS: Ht 180.3 cm; Wt 110.3 kg
--- NOTE | ~2017-02-13 | PR ---
[place], [place] PROGRESS NOTE NAME: GUANACO HAIR [facility] #: [id number] UNIT #: [id number] ROOM: [facility] DOCTOR: AIYANA MAGUIRE MD BIRTHDATE: [birth year] DOS: 02/15/2017 SUBJECTIVE: The patient is breathing slightly better as compared to yesterday, but she still has some shortness of breath and wheezing. OBJECTIVE: VITAL SIGNS: Blood pressure 100/54, heart rate of 97 beats per minute, breathing 20 times per minute, temperature 98.4 degrees Fahrenheit. GENERAL APPEARANCE: The patient is alert and oriented x 3, in no visible distress. HEENT AND NECK: Exam within normal limits. CARDIOVASCULAR SYSTEM: Heart rate is regular in rate and rhythm. S1 and S2 normally audible. LUNGS: Decreased breath sounds all over and expiratory wheezing and moderate obesity. ABDOMEN: Soft, nontender. No obvious organomegaly. Bowel sounds are present. EXTREMITIES: Without significant cyanosis or edema. IMPRESSION AND PLAN: 1. The patient with asthmatoid wheezing and acute over chronic respiratory failure, improving with corticosteroids. The patient says that it is safe to use doxycycline on her because it has been used before without any allergic reactions. I will start her on office on doxycycline today. The patient is already on corticosteroids and bronchodilators. 2. Previous history of bronchial asthma. 3. Poor compliance with treatment. 4. Moderate obesity. 5. Mediport placement. AIYANA MAGUIRE MD CM:PNTRANS [phone] AIYANA MAGUIRE MD 02/15/172122 interface
--- NOTE | ~2017-02-13 | PR ---
[place], [place] PROGRESS NOTE NAME: GUANACO HAIR [facility] #: [id number] UNIT #: [id number] ROOM: [facility] DOCTOR: AIYANA MAGUIRE MD BIRTHDATE: [birth year] DOS: 02/17/2017 SUBJECTIVE: The patient improved from yesterday, but still has significant dyspnea on exertion and some wheezing. OBJECTIVE: GENERAL APPEARANCE: The patient is alert and oriented x 3, in no visible distress. VITAL SIGNS: Blood pressure 118/68, heart rate of 109 beats per minute, breathing 18 times per minute, temperature 98.1 degrees Fahrenheit. HEENT AND NECK: Exam within normal limits. CARDIOVASCULAR SYSTEM: Heart rate is regular in rate and rhythm. S1 and S2 normally audible. LUNGS: Slight expiratory wheezing. ABDOMEN: Soft, nontender. No obvious organomegaly. Bowel sounds are present. EXTREMITIES: Without significant cyanosis or edema. IMPRESSION: 1. The patient with asthmatoid wheezing, acute bronchitis and shortness of breath, being treated with bronchodilators, oxygen and antibiotic, no corticosteroids because she cannot tolerate them. For the first time, the patient's breathing has somewhat improved today, but she is still not well enough to go home. 2. Moderate obesity. The patient working with dietary. 3. Hypokalemia, treated with extra potassium supplements. I will repeat potassium level tomorrow. 4. Mediport placement for IV access. 5. Poor compliance with treatment. AIYANA MAGUIRE MD CM:PNTRANS [phone] AIYANA MAGUIRE MD 02/17/17 2343 interface
--- NOTE | ~2017-02-13 | CON ---
[place], [place] REPORT OF CONSULTATION NAME: GUANACO HAIR [facility] #: [id number] UNIT #: [id number] ROOM: [facility] DOCTOR: MIGUEL A MAYA MD BIRTHDATE: [birth year] DOS: 02/17/2017 PULMONARY CONSULTATION, EVALUATION AND MANAGEMENT The patient was independently seen and examined on 02/15/2017 with [id number] encounter. History was obtained from the patient and physical findings of the patient was also confirmed. All the labs were reviewed. Assessment was completed and recommendations and management changes were personally made for today's visit as well. The note done by the senior medical director was approved. HISTORY OF PRESENT ILLNESS: The patient has been noted, who is a 31-year-old female who has been admitted to the hospital under care of Dr. Galloway on 02/13/2017. The patient presented to the hospital, noted with increased respiratory symptoms of chest congestion and coughing, which has been present for about 4-5 days prior to admission to the hospital. The patient's cough has been noted with gradual worsening, increased chest congestion. She has been trying to expectorate sputum, which is noted unsuccessful. She does have symptoms of some wheezing as well as shortness of breath. She has been treated with intravenous antibiotics and bronchodilators. The patient denies symptoms of hemoptysis. REVIEW OF SYSTEMS: Completed by the senior medical director earlier. For the past history, family history, social history, surgical history, refer to my consultation of 10/17/2016 as well and it remains unchanged as reviewed with the patient. MEDICATIONS: Current administered medications noted as use of Robitussin-DM 2 tablets b.i.d., DuoNeb q.4 hours, ____ 10 mg daily, ibuprofen 800 mg p.o. t.i.d. p.r.n. for pain, doxycycline 100 mg IV b.i.d., and Xanax p.r.n. use. ALLERGIES: The patient's drug allergies were noted as the multiple allergies that include: 1. PENICILLIN. 2. SULFA DRUGS. 3. DULERA. 4. CIPROFLOXACIN. 5. BIAXIN. 6. REGLAN. PHYSICAL EXAMINATION: GENERAL: A 31-year-old female who has been currently noted awake and alert, noted with excessive congestion with cough nonproductive. Height of 5 feet 11 inches, weight 243 pounds, BMI 33.9. VITAL SIGNS: Normal temperature in the last 3 days, respiratory rate 18-20, heart rate 95-101, blood pressure ____-122/54. Pulse oxygen saturation of the patient on room air was 100% saturation. HEENT: Chronic obesity. Head was atraumatic. NECK: Supple. CARDIOVASCULAR: S1, S2 audible. [place], [place] REPORT OF CONSULTATION NAME: GUANACO HAIR UNIT #: [id number] ROOM: [facility] DOCTOR: MEHDI JEAN MD,MIGUEL A BIRTHDATE: [birth year] LUNGS: Decreased breath sounds bilaterally noted with expiratory wheezing without any crackles. ABDOMEN: Soft, obese, nontender. Bowel sounds are present. EXTREMITIES: Shows no edema. LABORATORY AND INVESTIGATIONS: The blood culture from showed no bacterial growth. The BMP on 02/14/2017, potassium 3.2, otherwise normal BMP. CBC on 02/14/2017 was noted as normal. The chest x-ray PA and lateral that was done on 02/13/2017 was noted essentially normal. PT/PTT on 02/13/2017 on admission were normal. Lactic acid normal at 0.9 on admission, CBC on admission, WBC count 11.9, remaining CBC normal. IMPRESSION: 1. Acute tracheobronchitis with exacerbation of bronchial asthma, nonproductive cough secondary to mucus impaction, inability to tolerate the corticosteroids ____ use of corticosteroids intravenously. 2. History of chronic obesity. 3. Past history of gastroesophageal reflux. The patient has gastroparesis, which has improved markedly with reduction of the pulmonary infections after surgical intervention and Jenise fundoplication. 4. History of diabetes mellitus as well as chronic obesity. 5. Allergic rhinitis and past history of obstructive sleep apnea disorder, noncompliant with the treatment. PLAN OF TREATMENT: The patient could be discharged home on oral medications as antibiotics, bronchodilators. Outpatient bronchoscopy will be done. The bronchoscopy could not be scheduled today or the next few days because of no schedule availability. In the meantime, continue supportive plan of management. Use of the Mucinex. All other supportive therapy, plan of management and care. Additional treatment changes will be done based on progression of the illness. MIGUEL A HARDING MD CM:CONSTR:REPORT OF CONSULTATION 1434 02/21/17 0710 interface
--- NOTE | ~2017-02-13 | PR ---
[place], [place] PROGRESS NOTE NAME: GUANACO HAIR [facility] #: [id number] UNIT #: [id number] ROOM: [facility] DOCTOR: AIYANA MAGUIRE MD BIRTHDATE: [birth year] DOS: 02/16/2017 SUBJECTIVE: The patient is still short of breath and wheezing. OBJECTIVE: VITAL SIGNS: Blood pressure 108/90, heart rate of 76 beats per minute, breathing 18 times per minute, temperature of 100.5 degrees Fahrenheit. GENERAL APPEARANCE: The patient is alert and oriented x 3, in no visible distress. HEENT AND NECK: Exam within normal limits. CARDIOVASCULAR SYSTEM: Heart rate is regular in rate and rhythm. S1 and S2 normally audible. LUNGS: Expiratory wheezing all over and decreased breath sounds. ABDOMEN: Soft, nontender. No obvious organomegaly. Bowel sounds are present. EXTREMITIES: Without significant cyanosis or edema. IMPRESSION: 1. The patient with acute asthmatoid wheezing, not significantly improved with treatment. The patient on bronchodilators, oxygen and she cannot tolerate corticosteroids. The patient also on doxycycline. I am consulting Dr. Hutchinson to consider clearing her airways with a bronchoscopy. 2. Moderate obesity. The patient working with dietary. 3. Hypokalemia, treated with extra potassium supplements. 4. Mediport placement for IV access. 5. Poor compliance with treatment. AIYANA MAGUIRE MD CM:PNTRANS [phone] AIYANA MAGUIRE MD 02/16/172106 interface
--- NOTE | ~2017-02-13 | WRIGHTHP ---
[place], [place] PATIENT HISTORY AND PHYSICAL EXAM NAME: GUANACO HAIR [facility] #: [id number] UNIT #: [id number] ROOM: [facility] DOCTOR: AIYANA MAGUIRE MD BIRTHDATE: [birth year] DOS: HISTORY OF PRESENT ILLNESS: The patient was seen yesterday for H and P. She was presented to the emergency department with increased shortness of breath, wheezing, cough and she was breathing much worse than usual and wanted to be admitted for further management. The patient was seen by Dr. Rosalino Oswald and recommended for admission and further management. After admission, the patient has wheezing, shortness of breath and cough. REVIEW OF SYSTEMS: LUNGS: Increased shortness of breath and wheezing. GASTROINTESTINAL: No nausea, vomiting, diarrhea or constipation. CARDIOVASCULAR: No chest pains or palpitations. FAMILY HISTORY: Negative for any medical issues. SOCIAL HISTORY: Denies smoking cigarettes, alcohol or any drug abuse. ALLERGIES: Known allergies to SULPHUR, DULERA, CIPRO, BIAXIN, REGLAN, SILICONE, WALNUT. PHYSICAL EXAMINATION: GENERAL: Alert and oriented x 3, in no visible distress, somewhat short of breath with expiratory wheezing on lung auscultation and decreased breath sounds, otherwise morbid obesity. HEENT AND NECK: Extraocular movements are intact. Sclerae are anicteric. Oral mucosa is moist and clean. No obvious facial weakness. Neck is supple without any lymphadenopathy. No thyromegaly. No JVD. No carotid arterial bruits. LUNGS: Clear to auscultation. No wheezing. No rhonchi. CARDIOVASCULAR SYSTEM: Heart rate is regular in rate and rhythm. S1 and S2 normally audible. No significant murmur or any other abnormal cardiac sounds. ABDOMEN: Soft, nontender. No obvious organomegaly. Bowel sounds are present. No obvious herniation. EXTREMITIES: Without significant cyanosis or edema. Warm to touch. CENTRAL NERVOUS SYSTEM: Alert and oriented x 3. Cranial nerves II-XII are intact. Speech is normal. The patient is able to move all extremities. Normal muscle strength. Deep tendon reflexes are equal on both sides. Plantars were downgoing. IMPRESSION AND PLAN: 1. The patient with asthmatoid wheezing with shortness of breath and cough to be treated with bronchodilators, oxygen and it's difficult to give her any antibiotics safely since she is allergic to almost all antibiotics. We will follow her closely. 2. Moderate obesity. The patient to work her Dietary. 3. Hypokalemia, to be treated with extra potassium supplements. 4. MediPort placement for intravenous access. 5. Poor compliance with treatment. [place], [place] PATIENT HISTORY AND PHYSICAL EXAM NAME: [facility] HAIR [id number] UNIT #: [id number] ROOM: [facility] DOCTOR: AIYANA MAGUIRE MD BIRTHDATE: [birth year] AIYANA MAGUIRE MD CM:HISPHYS:PATIENT HISTORY AND PHYSICAL EXAMINATION [phone] AIYANA MAGUIRE MD 02/15/17 1435 interface
--- NOTE | ~2017-02-13 | PR ---
[place], [place] PROGRESS NOTE NAME: GUANACO HAIR [facility] #: [id number] UNIT #: [id number] ROOM: [facility] DOCTOR: MEHDI JEAN MD,MIGUEL A BIRTHDATE: [birth year] DOS: 02/18/2017 SUBJECTIVE: The patient has been still noted with chest congestion, inability to expectorate sputum, shortness breath, wheezing and other symptoms have been resolving. There were symptoms of chest pain. OBJECTIVE: VITAL SIGNS: Normal temperature, respiratory rate 20, heart rate 98, blood pressure 110/82. The pulse oxygen saturation on room air 96% saturation. HEENT: Examination shows no new change. NECK: Supple. CARDIOVASCULAR: S1, S2 audible. LUNGS: The patient was noted without any crackles or rhonchi. ABDOMEN: Soft, nontender. IMPRESSION: The patient with acute bacterial bronchitis. The patient mucus impaction exacerbation of bronchial asthma symptoms and findings remains the same as of yesterday. PLAN OF TREATMENT: Outpatient bronchoscopy. Continue the previous treatment plan and management. Usual plan of care and therapy. MIGUEL A HARDING MD CM:PNTRANS [phone] MIGUEL A JEAN MD 02/19/17149 interface
--- NOTE | ~2017-02-13 | CON ---
[place], [place] REPORT OF CONSULTATION [id number] UNIT #: [id number] ROOM: [facility] DOCTOR: POLLO CARTERFAUSTINO BIRTHDATE: [birth year] DOS: 02/17/2017 REASON FOR CONSULTATION: Shortness of breath. REFERRING PHYSICIAN: Dr. Metzger. CHIEF COMPLAINT: Chest congestion. HISTORY OF PRESENT ILLNESS: This is a 31-year-old female who presents to [facility] with complaints of cold. The patient states that it started on Monday and since then, she has been having sore throat, trouble breathing, cannot stop sneezing, difficulty breathing, congestion, cough, runny nose. She says that she cannot get the sputum out and is concerned that she has infection. The patient states that she has a history of COPD and is related to secondhand smoking. She says that Dr. Harding is her escrow clerk and she was not able to get his appointment. She says that she has history of multiple infection. The patient denies any nausea, vomiting, heart palpitations, constipation or any other complaints at this time. PAST MEDICAL HISTORY: 1. History of uncomplicated, severe, persistent bronchial asthma. 2. Allergic rhinitis. 3. Obstructive sleep apnea disorder. 4. Chronic wrtivguk-qd-qpyald obesity. 5. Gastroparesis. 6. History of type 2 diabetes. 7. Allergic rhinitis. 8. History of recurrent aspiration. 9. Atrial fibrillation with chronic anticoagulation. 10. Thrombophlebitis due to PICC, resolved. 11. Poor peripheral venous access. PAST SURGICAL HISTORY: 1. MediPort insertion and removal x 4. 2. Hiatal hernia surgery repair. 3. Complete hysterectomy. 4. TMA. 5. Bilateral ear tube insertion. 6. Prolapsed bladder sling. 7. Several therapeutic bronchoscopies. 8. Past PICC line insertion. 9. Multiple upper endoscopies. SOCIAL HISTORY: The patient is , has 2 children, lives with a roommate. The patient denies any drug or alcohol use. 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 FAMILY HISTORY: The patient noted both parents without any known medical condition. ALLERGIES: The drug allergy noted was allergy to: [place], [place] REPORT OF CONSULTATION NAME: GUANACO HAIR [facility] #: [id number] UNIT #: [id number] ROOM: [facility] DOCTOR: FAUSTINO ABAD DO BIRTHDATE: [birth year] 1. PENICILLIN. 2. SULFA DRUGS. 3. CIPRO. 4. BIAXIN. 5. REGLAN. 6. DULERA. Current use noted of Singulair; loratadine; DuoNeb; IV Solu-Medrol, not taken by the patient; Xanax. REVIEW OF SYSTEMS: CONSTITUTIONAL: Denies any symptoms of flu. Complains of feeling feverish and fatigued and tired. EYES: Denies any burning, redness, tenderness. ENT: Denies sore throat, hoarseness, otalgia, postnasal drainage or epistaxis. CARDIOVASCULAR: Denies anginal pain, edema or pain of lower extremity. GASTROINTESTINAL: Denies dysphagia, nausea, vomiting, diarrhea, abdominal pain, hematemesis, melena or hematochezia. SKIN: Denies any lesions or rashes. CENTRAL NERVOUS SYSTEM: Denies seizure, dizziness, lightheadedness. LUNGS: The patient states that she has been having shortness of breath, wheezing, cough, congestion, but cannot get the sputum out. She is also feeling some runny nose. Remaining systems were reviewed with the patient, they were all noted to be negative. PHYSICAL EXAMINATION: GENERAL: This is a 31-year-old female who has been currently awake, alert without any distress. Height of 5 feet 7 inches, weight 110 kg, BMI of 33.9. VITAL SIGNS: Temperature 98.2, pulse 97, respiratory rate 20, blood pressure 100/54, pulse ox 95 on room air. LABORATORY DATA: White cell count 9.2, hemoglobin 12.3, platelet 210. Sodium 141, potassium 3.2, BUN 18, creatinine 0.66. INR of 1. MICROBIOLOGY: Rapid strep screen was negative for group A beta hemolytic streptococcus. Blood cultures to date are pending. IMAGING: Chest x-ray done on 02/13/2017 shows no acute process. ASSESSMENT AND PLAN: Please see Dr. Harding's note for further assessment and plan. Thank you for the consult. FAUSTINO ABAD DO [place], [place] REPORT OF CONSULTATION NAME: SHELBIE HAIRCloverMIRIAMEDWARD Kaminski UNIT #: [id number] ROOM: [facility] DOCTOR: FAUSTINO ABAD DO BIRTHDATE: [birth year] MIGUEL A HARDING MD CM:CONSTR:REPORT OF CONSULTATION 1114 02/17/17 1223 interface
--- NOTE | ~2017-02-13 | DS ---
[place], [place] DISCHARGE SUMMARY NAME: GUANACO HAIR UNIT #: [id number] ROOM: 501 DOCTOR: AIYANA MAGUIRE MD BIRTHDATE: [birth year] DOS: 02/18/2017 DISCHARGE DIAGNOSES: 1. Acute asthmatoid wheezing with acute over chronic respiratory failure, improved with treatment. 2. Moderate obesity. 3. Hypokalemia, treated with extra potassium. 4. MediPort placement for IV access. 5. Poor compliance with treatment. HOSPITAL COURSE: The patient presented to the Emergency Department at [facility] with wheezing, shortness of breath, cough and was admitted for further management. After admission, patient continued to wheeze and Dr. Hutchinson, the assembling motor builder, was consulted. Dr. Hutchinson has suggested an outpatient bronchoscopy if necessary, but the patient's breathing is improved enough that she feels she can go home today. The patient does get some dyspnea on exertion and tachycardia, but overall at rest, she is quite comfortable. The patient says she is unable to tolerate corticosteroids. The patient was treated with inhaled corticosteroids, bronchodilators, antibiotic, oxygen, and will be discharged to home today to follow up at the office on Monday. Hypokalemia, treated with extra potassium supplements and repeat potassium level was normal today. Moderate obesity. The patient working with diet and Dietary. Poor compliance with medical treatment and follow up at the office. LABORATORY DATA: Normal serum electrolytes. Blood cultures were negative. Potassium level of 3.2, returned to normal with extra potassium supplements. DISCHARGE MANAGEMENT: DuoNeb every 4 hours, Claritin 10 mg a day, ibuprofen 800 mg t.i.d. p.r.n. for pain, Xanax t.i.d. p.r.n. for anxiety, Advair inhaler the patient has at home, 2 inhalations twice a day. [place], [place] DISCHARGE SUMMARY NAME: GUANACO HAIR UNIT #: [id number] ROOM: [facility] DOCTOR: AIYANA MAGUIRE MD BIRTHDATE: [birth year] AIYANA MAGUIRE MD CM:LAURA [phone] AIYANA MAGUIRE MD 02/18/17 2213 interface
[2017-02-13 12:35] VITALS: BP 131/85
[2017-02-13 14:27] LABS: BASO # 0.1 10*3/uL (0.0-0.1); BASO % 0.5 % (0.0-1.0); EOS # 0.4 10*3/uL (0.0-0.4); EOS % 3.6 % (1.0-4.0); HEMATOCRIT 41.4 % (37.0-47.0); HEMOGLOBIN 13.6 g/dl (12.0-16.0); LYMPH # 1.8 10*3/uL (1.3-4.4); LYMPH % 16.2 % (27.0-41.0); MEAN CORPUSCULAR HGB 28.6 pg (27.0-31.0); MEAN CORPUSCULAR HGB CONC 32.9 g/dl (33.0-37.0); MEAN PLATELET VOLUME 9.7 fl (9.6-12.3); MONO # 0.6 10*3/uL (0.1-1.0); MONO % 4.9 % (3.0-9.0); NEUT # 8.3 10*3/uL (2.3-7.9); NEUT % 74.4 % (47.0-73.0); PLATELET COUNT AUTOMATED 224 10*3/uL (130-400); RED BLOOD COUNT 4.76 10*6/uL (4.10-5.10); WHITE BLOOD COUNT 11.1 10*3/uL (4.8-10.8)
[2017-02-13 14:36] LABS: ACT PARTIAL THROMBO TIME 23.9 SECONDS (20.8-31.5)
[2017-02-13 14:44] LABS: ALBUMIN 3.8 gm/dl (3.1-4.5); ALKALINE PHOSPHATASE 106 U/L (45-117); BUN 13 mg/dl (7-24); CHLORIDE 106 mmol/L (98-107); CPK 35 U/L (26-192); CREATININE 0.62 mg/dL (0.55-1.02); LIPASE 113 U/L (73-393); MAGNESIUM 1.8 mg/dL (1.5-2.1); POTASSIUM 4.2 mmol/L (3.5-5.1); SGOT/AST 11 IU/L (3-35); SGPT/ALT 16 U/L (12-78); SODIUM 139 mmol/L (136-145); TOTAL PROTEIN 7.4 gm/dL (6.4-8.2)
[2017-02-13 14:46] LABS: CKMB < 0.5 ng/ml (0.5-3.6); TROPONIN I < 0.015 ng/ml (<0.045)
[2017-02-13 17:25] VITALS: BP 129/82
[2017-02-13] MEDS ORDERED: Motrin,Rufen800 MG PO (17:53)
[2017-02-13] MEDS ORDERED: FLONASE ALLERG9.9 ML NAS (17:53)
[2017-02-13 20:00] VITALS: BP 119/66
[2017-02-14 02:00] VITALS: BP 106/51
[2017-02-14 07:10] LABS: BASO % 0.4 % (0.0-1.0); EOS # 0.4 10*3/uL (0.0-0.4); EOS % 4.7 % (1.0-4.0); HEMATOCRIT 36.7 % (37.0-47.0); HEMOGLOBIN 12.3 g/dl (12.0-16.0); LYMPH # 2.2 10*3/uL (1.3-4.4); LYMPH % 23.7 % (27.0-41.0); MEAN CORPUSCULAR HGB 29.5 pg (27.0-31.0); MEAN CORPUSCULAR HGB CONC 33.5 g/dl (33.0-37.0); MEAN PLATELET VOLUME 9.8 fl (9.6-12.3); MONO # 0.6 10*3/uL (0.1-1.0); MONO % 6.6 % (3.0-9.0); NEUT # 5.9 10*3/uL (2.3-7.9); NEUT % 64.4 % (47.0-73.0); PLATELET COUNT AUTOMATED 210 10*3/uL (130-400); RED BLOOD COUNT 4.17 10*6/uL (4.10-5.10); RED CELL DISTRI WIDTH 13.3 % (0-14.5); WHITE BLOOD COUNT 9.2 10*3/uL (4.8-10.8)
[2017-02-14 07:52] LABS: BUN 18 mg/dl (7-24); CHLORIDE 106 mmol/L (98-107); CREATININE 0.66 mg/dL (0.55-1.02); SODIUM 141 mmol/L (136-145)
[2017-02-14 07:53] LABS: POTASSIUM 3.2 mmol/L (3.5-5.1)
[2017-02-14 08:00] VITALS: BP 131/88
--- NOTE | 2017-02-14 08:30 | NUR ---
Absorption Operator in to talk to patient. Patient states lives at HOME [address] with HER CHILDREN. There are 20 steps in the home. Physician: DR MAGUIRE Pharmacy: Home health services: [facility] Patient's level of ADLs: INDEPENDENT Patient has working utilities: YES DME: NEB/CPAP Follow-up physician's appointment after d/c: PREFERS TO MAKE HER OWN APPT Does patient want to access PORTAL?: Discharge plan HOME. ADAMARIS HERNANDEZ
--- NOTE | 2017-02-14 11:41 | NUR ---
PT REFUSING FLU VACCINE, PER PT SHE RECIEVED LAST WEEK AT [facility]
[2017-02-14 12:00] VITALS: BP 126/83
[2017-02-14 16:00] VITALS: BP 152/85
--- NOTE | 2017-02-14 19:51 | NUR ---
PT TEST/LAB RESULTS REVIEWED WITH PT. PT WONDERING WHAT THE PLAN IS. DR. BAER VETERINARY MEDICINE SCIENTIST AND PHONED. DR. BAER STATES, THIS IS DR. MAGUIRE PT AND TO CALL HIM. ATTEMPTED TO CALL DR. MAGUIRE, NO ANSWER. PT REQUESTING DR. HARDING CONSULT. ADVISED PT TO STAY THE NIGHT AND RECEIVE AEROSOL TXS AND STAFF WILL CONTACT DR. MAGUIRE IN THE AM. PT AGREEABLE.
[2017-02-14 20:00] VITALS: BP 126/51
--- NOTE | 2017-02-14 22:15 | NUR ---
PT MEDICATED WITH PRN XANAX PER PT REQUEST TO HELP RELAX AND SLEEP. SINUS CONGESTION NOTED. SCHEDULED CLARITAN GIVEN. PT ENCOURAGED TO DRINK HOT TEA. PT AGREEABLE.
[2017-02-15] VITALS: BP 100/54
--- NOTE | 2017-02-15 03:50 | NUR ---
24 HR chart check completed.
[2017-02-15 08:00] VITALS: BP 90/46
[2017-02-15 16:00] VITALS: BP 140/80
[2017-02-15 20:00] VITALS: BP 139/56
--- NOTE | 2017-02-15 23:30 | NUR ---
MEDICATED WITH XANAX FOR C/O ANXIETY PER PT'S REQUEST.
[2017-02-16] VITALS: BP 129/89; BP 140/62
--- NOTE | 2017-02-16 02:00 | NUR ---
RESTING IN BED WITH EYES CLOSED. XANAX GIVEN EARLIER APPARENTLY EFFECTIVE. CALL LIGHT WITHIN REACH.
[2017-02-16 08:00] VITALS: BP 104/56
--- NOTE | 2017-02-16 08:00 | NUR ---
Patient resting quietly with no c/o discomfort. Respirations easy and regular. Vital signs stable. No overt distress. ERIKA HASKINS.
[2017-02-16 12:00] VITALS: BP 123/81
[2017-02-16 16:00] VITALS: BP 108/90; BP 110/60
--- NOTE | 2017-02-16 16:39 | NUR ---
IN TO SEE PATIENT.
--- NOTE | 2017-02-16 16:56 | NUR ---
'S CELL PHONE CALLED AT THIS TIME REGARDING CONSULT. LEFT MESSAGE AND AWAITING RETURN PHONE CALL.
--- NOTE | 2017-02-16 18:35 | NUR ---
RETURNED CALL. UNABLE TO PERFORM BRONCH UNTIL NEXT WEEK AND WILL SEE PATIENT TOMORROW.
[2017-02-16 20:00] VITALS: BP 132/92
--- NOTE | 2017-02-16 23:34 | NUR ---
24 HR chart check completed.
[2017-02-17] VITALS: BP 101/52; BP 135/71
[2017-02-17 04:00] VITALS: BP 122/54
[2017-02-17 08:00] VITALS: BP 132/74
--- NOTE | 2017-02-17 09:00 | NUR ---
case management visits with patient, patient denies any home needs
[2017-02-17 12:00] VITALS: BP 113/68
[2017-02-17 16:00] VITALS: BP 118/68
[2017-02-17 20:00] VITALS: BP 120/71
--- NOTE | 2017-02-17 20:00 | NUR ---
ASSUMED CARE OF PATIENT. ASSESSMENT COMPLETE. RESTING IN BED WITH NO COMPLAINTS. CALL LIGHT IN REACH. WILL CONTINUE TO MONITOR.
[2017-02-18] VITALS: BP 116/84
--- NOTE | 2017-02-18 03:14 | NUR ---
PATIENT RESTING IN BED CURRENTLY RECEIVING BREATHING TREATMENT. NO VOICED COMPLAINTS AT THIS TIME. NO SXS OF DISTRESS. CALL LIGHT IS IN REACH.
[2017-02-18 06:44] LABS: BUN 19 mg/dl (7-24); CHLORIDE 107 mmol/L (98-107); CREATININE 0.63 mg/dL (0.55-1.02); POTASSIUM 3.9 mmol/L (3.5-5.1); SODIUM 139 mmol/L (136-145)
--- NOTE | 2017-02-18 06:47 | NUR ---
PATIENT SLEPT THROUGHOUT THE NIGHT WITH NO VOICED COMPLAINTS. CURRENTLY RESTING QUIETLY. NO SXS OF DISTRESS. CALL LIGHT IN REACH.
--- NOTE | 2017-02-18 07:57 | NUR ---
Shift chart check completed.
[2017-02-18 08:00] VITALS: BP 110/82
--- NOTE | 2017-02-18 11:56 | NUR ---
IV DOXY HUNG INTO PORT LEFT UPPER CHEST. FLUSHED WITHOUT DIFFICULTY. PT HAS NO NEEDS AT THIS TIME. WILL CONTINUE TO MONITOR
[2017-02-18 12:00] VITALS: BP 118/71
[2017-02-18 16:00] VITALS: BP 122/91
[2017-02-18 20:00] VITALS: BP 107/71
--- NOTE | 2017-02-18 22:06 | NUR ---
PATIENT DISCHARGED. VERBALIZED UNDERSTANDING OF DISCHARGE INSTRUCTIONS. MEDIPORT DEACCESSED AND PRESSURE DRESSING APPLIED. HEART MONITOR REMOVED AND RETURNED TO FLOOR.
== END 2017-02-18 22:09 | disposition home or self-care (01) | DRG 189 ==
LOC: ED 12:24 → EDHOLD 15:53 → 5E 15:53
PROVIDERS: Emergency Medicine; ADMIT Internal Medicine
DX: J96.20 Acute and chronic respiratory failure, unspecified whether with hypoxia or hypercapnia (principal); K31.84 Gastroparesis; J45.901 Unspecified asthma with (acute) exacerbation; E11.43 Type 2 diabetes mellitus with diabetic autonomic (poly)neuropathy; J44.9 Chronic obstructive pulmonary disease, unspecified; K21.9 Gastro-esophageal reflux disease without esophagitis; J20.9 Acute bronchitis, unspecified; J30.9 Allergic rhinitis, unspecified; G47.33 Obstructive sleep apnea (adult) (pediatric); E87.6 Hypokalemia; Z91.19 Patient's noncompliance with other medical treatment and regimen; Z88.0 Allergy status to penicillin; Z88.2 Allergy status to sulfonamides; Z88.1 Allergy status to other antibiotic agents; Z88.8 Allergy status to other drugs, medicaments and biological substances; Z79.51 Long term (current) use of inhaled steroids; Z79.1 Long term (current) use of non-steroidal anti-inflammatories (NSAID); Z79.899 Other long term (current) drug therapy; Z87.440 Personal history of urinary (tract) infections; Z90.710 Acquired absence of both cervix and uterus; Z80.1 Family history of malignant neoplasm of trachea, bronchus and lung; Z68.38 Body mass index [BMI] 38.0-38.9, adult; E66.8 Other obesity

== ENCOUNTER → 2017-02-21 | Day surgery (SDC) | payer OTHER ==
[~2017-02-21] VITALS: Ht 175.2 cm; Wt 108.9 kg
[~2017-02-21] MED LIST changes: +FLONASE ALLERG9.9 ML NAS
--- NOTE | ~2017-02-21 | PROC NOTE ---
[place], [place] PROCEDURE NOTE [id number] UN[facility] #: [id number] ROOM: DOCTOR: MEHDI JEAN MD,MIGUEL A BIRTHDATE: [birth year] DOS: 02/21/2017 PREOPERATIVE DIAGNOSES: Persistent severe nonproductive cough with maximum medical therapy, exacerbation of bronchial asthma. POSTOPERATIVE DIAGNOSES: Removal of the mucus plug from the major airways bilaterally. A finding of mild tracheobronchitis. PROCEDURE DESCRIPTION: Informed consent obtained from the patient. The patient brought to the OR and placed in supine position. Conscious sedation administered by the Anesthesia Department. After achieving appropriate sedation, airway introduced into the mouth. Bronchoscope advanced to the airway into laryngeal area. Epiglottis and vocal cords were seen. Bronchoscope advanced to the vocal cord and tracheal lumen. Tracheal lumen was noted with moderate amount of thick mucoid secretion which was suctioned out. Yecenia noted sharp. Right upper, right middle, right lower, left upper, lingular lower lobe openings were all examined. The patient was noted with findings of a pygt-tl-[id number] mucus impaction to major airways, bilaterally suctioned out clear with the help of normal saline wash, and sent for cultures. Procedure was tolerated by the patient without difficulty. Postoperative findings will be discussed with the patient once the patient recovers the effects of acute sedation. No major changes in the treatment at this time will be needed. MIGUEL A HARDING MD CM:PROCNOTE:PROCEDURE NOTE [id number] MIGUEL A JEAN MD
[2017-02-21 08:00] VITALS: BP 119/80
[2017-02-21 08:53] VITALS: BP 107/55
[2017-02-21 09:08] VITALS: BP 117/57
[2017-02-21 09:23] VITALS: BP 108/63
[2017-02-22 15:06] LABS: ACID FAST SMEAR Negative (.); ACID FAST SPEC PROCESSING Concentration (.)
== END | disposition home or self-care (01) ==
LOC: SDC 02-17 12:30
PROVIDERS: Internal Medicine Critical Care Medicine
DX: J40 Bronchitis, not specified as acute or chronic (principal); F41.9 Anxiety disorder, unspecified; F32.9 Major depressive disorder, single episode, unspecified; K21.9 Gastro-esophageal reflux disease without esophagitis; J44.9 Chronic obstructive pulmonary disease, unspecified; Z86.14 Personal history of Methicillin resistant Staphylococcus aureus infection; I48.91 Unspecified atrial fibrillation; Z98.890 Other specified postprocedural states; Z90.710 Acquired absence of both cervix and uterus; Z80.8 Family history of malignant neoplasm of other organs or systems; Z88.0 Allergy status to penicillin; Z88.1 Allergy status to other antibiotic agents

== ENCOUNTER 2017-03-15 14:45 | Inpatient (IN) | payer OTHER ==
[~2017-03-15] VITALS: Ht 175.3 cm; Wt 115.3 kg
--- NOTE | ~2017-03-15 | WRIGHTHP ---
[place], [place] PATIENT HISTORY AND PHYSICAL EXAM NAME: GUANACO HAIR [facility] #: [id number] UNIT #: [id number] ROOM: 532 DOCTOR: AIYANA MAGUIRE MD BIRTHDATE: [birth year] DOS: 03/16/2017 HISTORY OF PRESENT ILLNESS: The patient is a 31-year-old female with past medical history of bronchial asthma, moderate obesity, Mediport placement for IV access, poor compliance with treatment. The patient presented to my office yesterday and was admitted for increased shortness of breath, hypoxemia and wheezing. The patient has been admitted and treated with bronchodilators, oxygen and antibiotic and her breathing is improving. The patient was observed closely in the ICU for respiratory failure because she could require mechanical ventilation. The patient's breathing is improved now. The patient still has some chest tightness and wheezing, which is better than yesterday. No dizziness or fainting episodes. No other GI or urinary symptoms. The patient's breathing had been getting worse for about 3 days prior to admission. SYSTEMS REVIEW: LUNGS: Wheezing and shortness of breath. GASTROINTESTINAL: No nausea, vomiting, diarrhea or constipation. CARDIOVASCULAR: No chest pains or palpitations. FAMILY HISTORY: Noncontributory. SOCIAL HISTORY: Denies smoking cigarettes, alcohol and drug abuse. ALLERGIES: KNOWN ALLERGIES TO PENICILLIN, SULFA, DULERA, BIAXIN, REGLAN, CORTICOSTEROIDS CAUSE PALPITATIONS. PHYSICAL EXAMINATION: GENERAL: Alert and oriented x 3. Significantly decreased breath sounds and expiratory wheezing all over. LABORATORY DATA: Chest x-ray without any acute abnormality. Blood gases showed hypoxemia with pO2 of 73, pH of 7.44, saturating 96% on room air. Normal serum electrolytes, bilirubin, liver enzymes. Normal CBC. IMPRESSION: The patient with acute respiratory failure related to asthmatoid wheezing and acute exacerbation of bronchial asthma treated with corticosteroids, oxygen, bronchodilators and antibiotics and observed closely in the ICU. This patient is improving and her wheezing is also better and I will transfer her to a step-down unit. If she continues to improve, she can be discharged to home tomorrow morning. Pollen allergies treated and controlled with loratadine. Because of chronic lung disease, I am also starting her on Daliresp to see if this will reduce her recurrent hospital admissions because of the anti-inflammatory effect. [place], [place] PATIENT HISTORY AND PHYSICAL EXAM [facility]: [facility]IR [id number] #: [id number] ROOM: [facility] DOCTOR: AIYANA MAGUIRE MD BIRTHDATE: [birth year] AIYANA MAGUIRE MD CM:HISPHYS:PATIENT HISTORY AND PHYSICAL EXAMINATION [phone] AIYANA MAGUIRE MD 03/16/172214 interface
--- NOTE | ~2017-03-15 | PR ---
[place], [place] PROGRESS NOTE NAME: GUANACO HAIR [facility] #: [id number] UNIT #: [id number] ROOM: 532 DOCTOR: ROULA BAER MD BIRTHDATE: [birth year] DOS: 03/17/2017 SUBJECTIVE: The patient is 31 years old. The patient does not have any complaints today. Denies any chest pains, palpitations. She is resting comfortably. OBJECTIVE: VITAL SIGNS: Graphic trend shows blood pressure 116/73, pulse of 79, respirations 18, temperature 97.6. LUNGS: Clear. HEART: Regular. ABDOMEN: Obese, soft, nontender. EXTREMITIES: Without any edema. Chest x-ray showed right middle lobe atelectasis on . ASSESSMENT AND PLAN: Exacerbation of bronchial asthma. The patient has been placed on Singulair. The patient is not on any IV steroids, so that has not been ordered. The patient is on Pulmicort and breathing treatments. The patient is stable. The plan is to discharge her to home today. Follow up as an outpatient with Dr. Galloway. ROULA BAER MD CM:PNTRANS 0838 ROULA BAER MD 03/18/17 0027 interface
--- NOTE | ~2017-03-15 | DS ---
[place], [place] DISCHARGE SUMMARY NAME: GUANACO HAIR [facility] #: [id number] UNIT #: [id number] ROOM: 532 DOCTOR: ROULA BAER MD BIRTHDATE: [birth year] DOS: 03/17/2017 DIAGNOSES: 1. Acute exacerbation of bronchial asthma. 2. Acute respiratory distress syndrome. 3. Generalized anxiety disorder. DISCHARGE MEDICATIONS: Singulair 10 daily, Cipro 500 mg twice daily for 7 days, Xanax 0.25 t.i.d., breathing treatments, loratadine 10 daily, Flonase 2 sprays each nostril daily, Motrin 800 t.i.d., Breo Ellipta 200 two puffs twice daily. These are the prescriptions that the patient has received in the hospital, which I am continuing. Since the patient is on Singulair, I have not given the patient a prescription for Daliresp. Dr. Galloway can make the decision later as an outpatient. HOSPITAL COURSE: The patient is 31-year-old who presents with complaints of difficulty breathing. Please refer to H and P and notes dictated by Dr. Galloway for further details. This morning, the patient is stable and improved, does not have any more bronchospasm, no fever and hemodynamically stable, so the discharge is arranged for her, to be followed up as an outpatient. ROULA BAER MD CM:DISCHEVA [phone] ROULA BAER MD 03/17/17 2001 interface
[2017-03-15 15:13] VITALS: BP 120/77
--- NOTE | 2017-03-15 15:15 | NUR ---
A 31, admitted to [facility], under the services of Dr. ANDREZ TAFOYA,AIYANA Garcia with a diagnosis of COPD. Chief complaint is DIFFICULTY BREATHING FOR LAST COUPLE DAYS, PER THE PATIENT SHE THINKS IT IS FROM CLEANING OUT THE BASEMENT THAT SHE FOUND MOLD IN ( ALLERGIC TO MOLD). Patient arrived via wheel chair from [place]. Monitor applied. Initial assessment completed. Vital signs taken and recorded. DR. ANDREZ TAFOYA,AIYANA Garcia notified of admission to the unit. Orders received. See assessment for past medical history, medications and allergies. Patient and/or family oriented to unit. [facility] visitation policy reviewed. Clothing/patient valuable form completed. [facility]
[2017-03-15] MEDS ORDERED: BREO ELLIPTA 21 EACH INH (15:20)
--- NOTE | 2017-03-15 16:11 | NUR ---
DR MAGUIRE CALLED. HE IS PUTTING IN ADMISSION ORDERS
[2017-03-15 16:38] LABS: BASO # 0.1 10*3/uL (0.0-0.1); BASO % 0.6 % (0.0-1.0); EOS # 0.6 10*3/uL (0.0-0.4); EOS % 6.6 % (1.0-4.0); HEMATOCRIT 39.9 % (37.0-47.0); HEMOGLOBIN 13.2 g/dl (12.0-16.0); LYMPH # 2.6 10*3/uL (1.3-4.4); LYMPH % 30.2 % (27.0-41.0); MEAN CELL VOLUME 86.2 fl (81.0-99.0); MEAN CORPUSCULAR HGB 28.5 pg (27.0-31.0); MEAN CORPUSCULAR HGB CONC 33.1 g/dl (33.0-37.0); MEAN PLATELET VOLUME 9.7 fl (9.6-12.3); MONO # 0.5 10*3/uL (0.1-1.0); MONO % 5.6 % (3.0-9.0); NEUT # 4.9 10*3/uL (2.3-7.9); NEUT % 56.9 % (47.0-73.0); PLATELET COUNT AUTOMATED 213 10*3/uL (130-400); RED BLOOD COUNT 4.63 10*6/uL (4.10-5.10); WHITE BLOOD COUNT 8.6 10*3/uL (4.8-10.8)
[2017-03-15 16:53] LABS: ABG BASE EXCESS -0.2 mmol/L (-2.0-2.0); ABG HCO3 22.9 mmol/l (22-26); ABG O2 SATURATION 96.6 % (95-97); ARTERIAL BLOOD GAS PH 7.442 (7.35-7.45); ARTERIAL BLOOD GAS PO2 73.5 mmHg (80-90)
[2017-03-15 16:55] LABS: ALBUMIN 3.5 gm/dl (3.1-4.5); ALKALINE PHOSPHATASE 108 U/L (45-117); BUN 14 mg/dl (7-24); CHLORIDE 107 mmol/L (98-107); CREATININE 0.58 mg/dL (0.55-1.02); SGOT/AST 10 IU/L (3-35); SGPT/ALT 14 U/L (12-78); SODIUM 140 mmol/L (136-145); TOTAL PROTEIN 7.2 gm/dL (6.4-8.2)
--- NOTE | 2017-03-15 17:46 | NUR ---
DR MAGUIRE CALLED WITH LAB RESULTS. NO CXR REPORT YET. N0 NEED TO CALL IF NEGATIVE. ORDER TO CHANGE THE LEVAQUIN TO START TODAY RECEIVED.
--- NOTE | 2017-03-15 18:13 | NUR ---
PER THE PATIENT SHE WILL NOT TAKE STEROIDS IT MAKES HER HEART RATE GO TO HIGH.
[2017-03-15 20:00] VITALS: BP 124/74
[2017-03-16] VITALS: BP 105/71
[2017-03-16 04:00] VITALS: BP 111/55
[2017-03-16 08:00] VITALS: BP 118/78
--- NOTE | 2017-03-16 08:30 | NUR ---
Civil Engineer Helper in to talk to patient. Patient states lives at HOME with HER CHILDREN. There are 20 steps in the home. Physician: DR MAGUIRE Pharmacy: [facility] Home health services: NONE Patient's level of ADLs: INDEPENDENT Patient has working utilities: YES DME: NEB/CPAP Follow-up physician's appointment after d/c: PREFERS TO MAKE HER OWN APPT Does patient want to access PORTAL?: Discharge plan HOME. ADAMARIS HERNANDEZ
[2017-03-16 12:00] VITALS: BP 113/66
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
[2017-03-16 16:00] VITALS: BP 131/81
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
--- NOTE | 2017-03-16 17:41 | NUR ---
TRANSFERRED TO [facility] WITH BELONGINGS
[2017-03-16 20:00] VITALS: BP 123/78
--- NOTE | 2017-03-16 21:40 | NUR ---
PATIENT MEDICATED WITH XANAX PER PATIENT REQUEST AND PRN ORDER FOR C/O ANXIETY. SEE EMAR. REINFORCED USE OF CALL LIGHT.
[2017-03-17] VITALS: BP 108/67
--- NOTE | 2017-03-17 00:10 | NUR ---
PATIENT RESTING QUIETLY. NO C/O VOICED.
[2017-03-17 08:00] VITALS: BP 116/73
[2017-03-17] MEDS ORDERED: MONTELUKAST SOD10 MG PO (08:34)
[2017-03-17] MEDS ORDERED: CIPRO500 MG PO (08:35)
--- NOTE | 2017-03-17 10:00 | NUR ---
Discharge instructions reviewed with patient/family. Patient receptive and verbalizes understanding. Follow-up care arranged. Written instructions given to patient/family. Telemtry monitor and mediport access removed. Mediport flushed per policy prior to removal. Pt declined need for transport to [facility]. MIKE CHAVEZ
== END 2017-03-17 10:00 | disposition home or self-care (01) | DRG 189 ==
LOC: ICCU 14:45 → 5E 03-16 17:38
PROVIDERS: ADMIT Internal Medicine
DX: J96.01 Acute respiratory failure with hypoxia (principal); J45.901 Unspecified asthma with (acute) exacerbation; E66.8 Other obesity; F41.1 Generalized anxiety disorder; Z88.1 Allergy status to other antibiotic agents; Z88.2 Allergy status to sulfonamides; Z88.0 Allergy status to penicillin; Z88.8 Allergy status to other drugs, medicaments and biological substances; Z91.048 Other nonmedicinal substance allergy status; Z68.37 Body mass index [BMI] 37.0-37.9, adult

== ENCOUNTER → 2017-04-18 | Outpatient (CLI) | payer OTHER ==
[~2017-04-18] MED LIST changes: +BREO ELLIPTA 21 EACH INH; +MONTELUKAST SOD10 MG PO
--- NOTE | 2017-04-18 08:13 | NUR ---
CLIENT AMBULATORY TO TREATMENT AREA FOR PORT FLUSH. PORT WAS PREPPED X 2 AND ACCESSED USING ASEPTIC TECHNIQUE. NO BLOOD RETURN WAS NOTED. PORT WAS FLUSHED WITH SALINE FOLLOWED BY HEPARIN. NEEDLE WAS WITHDRAWN. NO BLEEDING SEEN. BANDAID APPLIED TO SITE. CLIENT THEN AMBULATED FROM TREATMENT AREA IN STABLE CONDITION
== END | disposition home or self-care (01) ==
LOC: MEDIPORT 01:31
DX: I87.8 Other specified disorders of veins (principal)

== ENCOUNTER → 2017-06-06 | Outpatient (CLI) | payer OTHER | END | disposition home or self-care (01) | LOC: MEDIPORT 05-16 08:00 | DX: I87.8 Other specified disorders of veins (principal) ==

== ENCOUNTER 2017-07-06 07:48 | Emergency (ER) | payer OTHER ==
[~2017-07-06] VITALS: Wt 110.2 kg
[2017-07-06 09:00] LABS: BILIRUBIN NEGATIVE (NEGATIVE); BLOOD 1+ (NEGATIVE); CLARITY CLOUDY (CLEAR); COLOR YELLOW (YELLOW); GLUCOSE NEGATIVE (NEGATIVE); KETONE NEGATIVE (NEGATIVE); LEUKO ESTERASE NEGATIVE (NEGATIVE); NITRITE NEGATIVE (NEGATIVE); SPECIFIC GRAVITY 1.025 (1.005-1.030); UROBILINOGEN 0.2 E.U./dl (0.2-1.0)
[2017-07-06 09:17] LABS: BACTERIA 3+
[2017-07-06 09:18] LABS: EPITHELIAL CELLS 15-20; MUCOUS 1+
[2017-07-06] MEDS ORDERED: Motrin,Rufen800 MG PO (10:18)
[2017-07-06] MEDS ORDERED: LEVAQUIN250 M1 PO (10:18)
[2017-07-06] MEDS ORDERED: PYRIDIUM200 M1 PO (10:18)
== END 2017-07-06 11:44 | disposition home or self-care (01) ==
LOC: ED 07:48
PROVIDERS: Emergency Medicine
DX: N39.0 Urinary tract infection, site not specified (principal); K21.9 Gastro-esophageal reflux disease without esophagitis; J44.1 Chronic obstructive pulmonary disease with (acute) exacerbation; E66.01 Morbid (severe) obesity due to excess calories; Z88.0 Allergy status to penicillin; Z88.2 Allergy status to sulfonamides; Z90.710 Acquired absence of both cervix and uterus; Z91.018 Allergy to other foods

== ENCOUNTER → 2017-07-27 | Outpatient (CLI) | payer OTHER ==
[~2017-07-27] MED LIST changes: +LEVAQUIN250 M1 PO
== END | disposition home or self-care (01) ==
LOC: MEDIPORT 02:58
DX: I87.8 Other specified disorders of veins (principal)

== ENCOUNTER 2017-08-22 15:07 | Inpatient (IN) | payer OTHER ==
[~2017-08-22] VITALS: Ht 175.3 cm; Wt 110.7 kg
--- NOTE | ~2017-08-22 | WRIGHTHP ---
[place], [place] PATIENT HISTORY AND PHYSICAL EXAM NAME: GUANACO HAIR [facility] #: [id number] UNIT #: [id number] ROOM: 512 DOCTOR: AIYANA MAGUIRE MD BIRTHDATE: [birth year] DOS: 08/22/2017 HISTORY OF PRESENT ILLNESS: The patient is a 31-year-old female with previous history of: 1. Severe bronchial asthma. 2. COPD. 3. Obesity. 4. History of severe generalized anxiety disorder. The patient was seen in my office with severe wheezing, tachypnea and shortness of breath for about 5 days prior to the patient presenting to my office. The patient appeared to be having significant difficulty with breathing and she was breathing about 25 to 30 times per minute and heart rate was in 120 to 130 beats per minute, sinus rhythm. The patient was evaluated and sent to ICU at [facility] for an admission and further management. The patient was started on breathing treatments with DuoNeb, Pulmicort, oxygen, IV azithromycin and a consult was obtained with Dr. Hutchinson. The patient had labored breathing, but apparently she did not require any intubation and mechanical ventilation. The patient's breathing started improving with treatment and she was kept on oxygen 2 liters per minute. REVIEW OF SYSTEMS: LUNGS: Increased shortness of breath and wheezing. GASTROINTESTINAL: No nausea, vomiting, diarrhea or constipation. CARDIOVASCULAR: No chest pain or palpitations. FAMILY HISTORY: Noncontributory. SOCIAL HISTORY: Denies smoking cigarettes, alcohol and drug abuse. HOME MEDICATIONS: Singulair, loratadine and Breo inhaler. PHYSICAL EXAMINATION: GENERAL: Alert, oriented x 3, in respiratory discomfort, in some distress, obesity. HEENT AND NECK: Extraocular movements are intact. Sclerae are anicteric. Oral mucosa is moist and clean. No obvious facial weakness. Neck is supple without any lymphadenopathy. No thyromegaly. No JVD. No carotid arterial bruits. LUNGS: Showed decreased breath sounds and expiratory wheezing all over. CARDIOVASCULAR SYSTEM: Heart rate is regular in rate and rhythm. S1 and S2 normally audible. No significant murmur or any other abnormal cardiac sounds. ABDOMEN: Soft, nontender. No obvious organomegaly. Bowel sounds are present. No obvious herniation. EXTREMITIES: Without significant cyanosis or edema. Warm to touch. CENTRAL NERVOUS SYSTEM: Alert and oriented x 3. Cranial nerves II-XII are intact. Speech is normal. The patient is able to move all extremities. Normal muscle strength. Deep tendon reflexes are equal on both sides. Plantars were downgoing. LABORATORY DATA: Chest x-ray showed no acute abnormality. CBC showed [place], [place] PATIENT HISTORY AND PHYSICAL EXAM NAME: GUANACO HAIR UNIT #: [id number] ROOM: [facility] DOCTOR: AIYANA MAGUIRE MD BIRTHDATE: [birth year] leukocytosis with white cell count of 12,000, normal platelets. Normal serum electrolytes. IMPRESSION: 1. The patient with acute asthmatoid wheezing with respiratory difficulty and acute over chronic respiratory failure. The patient admitted to the ICU for close evaluation and treated with bronchodilators, DuoNeb and Pulmicort inhaler. The patient is unable to tolerate intravenous or oral corticosteroids, which make her severely tachycardic. A consult was obtained with Dr. Hutchinson and the patient was observed closely. The patient's Singulair was continued. 2. Severe generalized anxiety disorder, to be treated with Xanax as needed. 3. Obesity, the patient is to work with Dietary. 4. As the patient's breathing was improving, she was transferred to a step-down intermediate monitored bed. AIYANA MAGUIRE MD CM:HISPHYS:PATIENT HISTORY AND PHYSICAL EXAMINATION [id number] AIYANA MAGUIRE MD 08/23/17 1450 interface
--- NOTE | ~2017-08-22 | DS ---
[place], [place] DISCHARGE SUMMARY NAME: GUANACO HAIR UNIT #: [id number] ROOM: 512 DOCTOR: AIYANA MAGUIRE MD BIRTHDATE: [birth year] DOS: 08/24/2017 DISCHARGE DIAGNOSES: 1. Acute asthmatoid wheezing with acute over chronic respiratory failure. 2. Severe generalized anxiety disorder. 3. Obesity. 4. Chronic obstructive pulmonary disease. 5. Severe history of bronchial asthma. 6. Recurrent bronchial asthma. 7. Obesity. HOSPITAL COURSE: The patient presented to my office with severe wheezing, tachypnea, shortness of breath with acute over chronic respiratory failure, which was progressive for 5 days before she presented to my office. The patient was breathing 25-30 times per minute and heart rate of 120 to 130 beats per minute with sinus tachycardia. The patient was admitted to the ICU at the hospital and treated with bronchodilators, inhaled corticosteroids and oxygen and Dr. Hutchinson, the joint creaser also saw her. Initially after admission, her breathing improved further, but fortunately she did not require intubation and mechanical ventilation and her breathing started improving. The patient was still wheezing slightly at the time of discharge to home and was not requiring any oxygen, although she was kept on 2 liters of oxygen per minute by nasal cannula during her stay at the hospital. Obesity, the patient worked with dietary and she is watching her diet. Severe generalized anxiety disorder, treated with Xanax as needed. Acute asthmatoid wheezing and acute over chronic respiratory failure as mentioned above, improved with treatment. DISCHARGE MANAGEMENT: The patient was sent home on DuoNeb every 4 hours, azithromycin 500 mg a day, Claritin 10 mg a day, Singulair 10 mg a day, Pulmicort with DuoNeb 0.5 mg b.i.d., Xanax 0.25 mg t.i.d. p.r.n. for anxiety. Followup with the office within a few days after discharge. [place], [place] DISCHARGE SUMMARY NAME: GUANACO HAIR UNIT #: [id number] ROOM: 512 DOCTOR: AIYANA MAGUIRE MD BIRTHDATE: [birth year] AIYANA MAGUIRE MD CM:LAURA [phone] [id number] AIYANA MAGUIRE MD 08/30/17 2138 interface
--- NOTE | ~2017-08-22 | PR ---
[place], [place] PROGRESS NOTE NAME: GUANACO HAIR [facility] #: [id number] UNIT #: [id number] ROOM: 512 DOCTOR: MEHDI JEAN MD,MIGUEL A BIRTHDATE: [birth year] DOS: 08/24/2017 SUBJECTIVE: The patient noted comfortable with reduction in the wheezing reported in the last 24 hours, the cough has been decreasing. There were no symptoms of chest pain. Shortness of breath noted partially decreased. The patient was transferred to the medical floor yesterday from ICU. OBJECTIVE: VITAL SIGNS: Normal temperature, respiratory rate 18, heart rate 80, blood pressure 90/45-190/69. Pulse oxygen saturation on 2 liters nasal cannula 98% room air, later on 95% saturation. HEENT: Moderate obesity. Head was atraumatic. Eyes nonicterus. NECK: Supple. CARDIOVASCULAR: S1, S2 is audible. LUNGS: Noted without any crackles. Mild diffuse bilateral expiratory wheezing. ABDOMEN: Soft and obese. EXTREMITIES: Without any acute edema. IMPRESSION: Resolving acute bronchitis exacerbation of bronchial asthma gradually. PLAN OF TREATMENT: No changes in the plan of care for the patient at this time. Continue current plan of therapy and other medical management and therapies. Usual medical management and other therapies. MIGUEL A HARDING MD CM:PNTRANS [id number] MIGUEL A JEAN MD 08/24/172048 interface
--- NOTE | ~2017-08-22 | CON ---
[place], [place] REPORT OF CONSULTATION NAME: GUANACO HAIR [facility] #: [id number] UNIT #: [id number] ROOM: 512 DOCTOR: MIGUEL A MAYA MD BIRTHDATE: [birth year] DOS: 08/23/2017 REASON FOR CONSULTATION: Recurrent exacerbation of bronchial asthma. HISTORY OF PRESENT ILLNESS: A 31-year-old white female known to me with past history of mild intermittent bronchial asthma related with history of allergic rhinitis with past history of recurrent pulmonary infection, secondary gastroesophageal reflux improved with surgery for the hiatal hernia. The patient became acutely ill 24 hours prior to admission and noted with chest congestion and cough. She was also noted with increased wheezing, tightness in the chest, shortness of breath with mild to moderate exertion. She was seen in the office of primary care physician and was admitted to the hospital for further care. Since admission, she was still noted with the respiratory symptoms, which has been persistent with only minimal improvement occurred. REVIEW OF SYSTEMS: CONSTITUTIONAL SYMPTOMS: The patient denies symptoms of fever or chills. Complaining of fatigue. EYES: Denies burning, redness or tenderness. EARS, NOSE, THROAT SYMPTOMS: Denies sore throat, hoarseness, otalgia, postnasal drainage or epistaxis. CARDIOVASCULAR: Denies angina pain, edema, pain of the lower extremities. GASTROINTESTINAL SYSTEM: Moderate obesity without any abnormal weight loss. Denies symptoms of gastroesophageal reflux, nausea, vomiting, diarrhea, abdominal pain, hematemesis, melena or hematochezia. SKIN: Denies lesions or rashes. MUSCULOSKELETAL SYMPTOMS: Denies acute joint pain or deformity. CENTRAL NERVOUS SYSTEM: Cranial nerves for this patient was noted without any deformity. There were no seizures history. There were no syncopal episodes. Remaining systems were reviewed. They were noted all negative. PAST MEDICAL HISTORY: 1. Mild intermittent uncomplicated bronchial asthma. 2. History of allergic rhinitis. 3. Gastroesophageal reflux and gastroparesis, status post surgery with marked improvement in the overall respiratory status and symptoms of gastroesophageal reflux. 4. Chronic obesity. 5. Type 2 diabetes mellitus. 6. General anxiety disorder. 7. History of gastroparesis. 8. Obstructive sleep apnea disorder, noncompliant or nonadherence to the treatment. 9. Atrial fibrillation, on chronic anticoagulation. 10. Poor peripheral venous access. PAST SURGICAL HISTORY: 1. MediPort insertion removal for time. 2. ATN. [place], [place] REPORT OF CONSULTATION NAME: GUANACO HAIR [facility] #: [id number] UNIT #: [id number] ROOM: [facility] DOCTOR: MIGUEL A MAYA MD BIRTHDATE: [birth year] 3. Complete hysterectomy. 4. Bilateral ear tube insertion. 5. History of prolapsed bladder and surgery with a sling. 6. Past therapeutic bronchoscopies. 7. Previous EGDs. 8. Repair of hiatal hernia in 2017. SOCIAL HISTORY: The patient is , has 2 children, lives at home. Denies any tobacco, alcohol or illicit drug use. FAMILY HISTORY: Both parents of the patient were living without any known medical illnesses. CURRENT MEDICATIONS: Used for the patient are use of loratadine, Singulair, DuoNeb q.4 hours, Pulmicort Respules 0.5 mg b.i.d., azithromycin, Xanax use p.r.n. and other p.r.n. medications used. DRUG ALLERGY HISTORY: Noted as: 1. PENICILLIN. 2. SULFA DRUGS. 3. DULERA. 4. BIAXIN. 5. REGLAN. 6. SILICONE. 7. SHE WAS ALSO REPORTED ENVIRONMENT ALLERGIES TO THE [facility]. PHYSICAL EXAMINATION: GENERAL: This is a 31-year-old white female, currently sitting on the bed at the time of assessment done in the Intensive Care Unit without any distress. Height of 5 feet 9 inches, weight of 244 pounds, BMI 36. VITAL SIGNS: For the patient which has been recorded shows the temperature noted normal. The respiratory 18-22, heart rate 95-106, blood pressure 110/63-140/52. Intake is 580 mL, output 900 mL. Pulse oxygen saturation noted on 2 liters nasal cannula 99% saturation. HEENT: Examination shows head was atraumatic. Eyes, nonicterus. NECK: Supple. CARDIOVASCULAR: S1, S2 audible. LUNGS: Noted moderate decreased breath sounds bilaterally with expiratory wheezing. There were no crackles. ABDOMEN: Soft, obese, nontender. Bowel sounds present. EXTREMITIES: The patient noted without any acute edema, clubbing or cyanosis. MUSCULOSKELETAL SYSTEM: No acute deformities. CENTRAL NERVOUS SYSTEM: Cranial nerves 2-12 intact. LABORATORY DATA: The BMP that was done this morning, normal BUN, creatinine and other electrolytes. Glucose normal 100. CBC this morning, WBC count 11.8, hemoglobin 12, hematocrit 36.5, platelet count was normal. The chest x-ray 2-view, which was done this morning does not show any acute pulmonary infiltration. MediPort noted in place in the left chest wall. [place], [place] REPORT OF CONSULTATION [id number] UN[facility] #: [id number] ROOM: 512 DOCTOR: MIGUEL A MAYA MD BIRTHDATE: [birth year] IMPRESSION: 1. The patient who has been currently admitted to the hospital noted with recurrence of acute exacerbation of bronchial asthma at this time with possibility of acute superimposed bacterial bronchitis. 2. History of past hiatal hernia and gastroesophageal reflux, which were repaired. 3. History of gastroparesis, which was also noted stable or improved. 4. History of type 2 diabetes mellitus. 5. Obstructive sleep apnea disorder, nonadherence with the treatment. 6. Chronic moderate obesity. PLAN OF TREATMENT: Continue bronchodilators every 4 hours. Addition of Pulmicort 0.5 mg b.i.d. for the patient to be continued advised since the patient refuses to take oral or intravenous corticosteroids. Continuation of the oxygen supplementation as to maintain saturation 90% and greater. Usual care. Any additional treatment changes to be done based on progression of the illness. Collect the sputum for Gram-stain culture as well to assess organism for the patient if there will be noted different as compared with the previous treatment. Further changes will be made accordingly.` MIGUEL A HARDING MD CM:CONSTR:REPORT OF CONSULTATION 1157 08/23/17 [id number] interface
--- NOTE | ~2017-08-22 | PR ---
[place], [place] PROGRESS NOTE NAME: GUANACO HAIR [facility] #: [id number] UNIT #: [id number] ROOM: [facility] DOCTOR: ANDREZ TAFOYA,AIYANA Garcia BIRTHDATE: [birth year] DOS: 08/23/2017 SUBJECTIVE: The patient is breathing much better as compared to yesterday. OBJECTIVE: VITAL SIGNS: Blood pressure 110/63, afebrile, heart rate of 95 beats per minute, breathing 18 times per minute. GENERAL APPEARANCE: The patient is alert and oriented x 3, in no visible distress. HEENT AND NECK: Exam within normal limits. CARDIOVASCULAR SYSTEM: Heart rate is regular in rate and rhythm. S1 and S2 normally audible. LUNGS: Wheezing has improved. ABDOMEN: Soft, nontender. No obvious organomegaly. Bowel sounds are present. EXTREMITIES: Without significant cyanosis or edema. IMPRESSION: 1. Acute asthmatoid wheezing, which has improved with treatment. The patient is on bronchodilators and corticosteroids along with antibiotic. 2. Productive cough, sputum cultures have been ordered. Chest x-ray without acute abnormality. 3. Leukocytosis. White cell count 11,800 secondary to her acute illness, is being followed. AIYANA MAGUIRE MD CM:PNTRANS [id number] AIYANA MAGUIRE MD 08/23/17 1114 interface
[2017-08-22 15:15] VITALS: BP 117/95
[2017-08-22 15:27] VITALS: BP 117/95
[2017-08-23] VITALS: BP 142/50
[2017-08-23 04:00] VITALS: BP 140/52
[2017-08-23 05:55] LABS: BASO # 0.1 10*3/uL (0.0-0.1); BASO % 0.4 % (0.0-1.0); EOS # 0.5 10*3/uL (0.0-0.4); HEMATOCRIT 36.6 % (37.0-47.0); LYMPH # 2.3 10*3/uL (1.3-4.4); LYMPH % 19.8 % (27.0-41.0); MEAN CELL VOLUME 86.7 fl (81.0-99.0); MEAN CORPUSCULAR HGB 28.4 pg (27.0-31.0); MEAN CORPUSCULAR HGB CONC 32.8 g/dl (33.0-37.0); MEAN PLATELET VOLUME 9.3 fl (9.6-12.3); MONO # 0.7 10*3/uL (0.1-1.0); NEUT # 8.2 10*3/uL (2.3-7.9); NEUT % 69.5 % (47.0-73.0); PLATELET COUNT AUTOMATED 235 10*3/uL (130-400); RED BLOOD COUNT 4.22 10*6/uL (4.10-5.10); RED CELL DISTRI WIDTH 13.2 % (0-14.5); WHITE BLOOD COUNT 11.8 10*3/uL (4.8-10.8)
[2017-08-23 06:09] LABS: BUN 12 mg/dl (7-24); CHLORIDE 105 mmol/L (98-107); CREATININE 0.59 mg/dL (0.55-1.02); POTASSIUM 3.8 mmol/L (3.5-5.1); SODIUM 140 mmol/L (136-145)
[2017-08-23 08:00] VITALS: BP 110/63
[2017-08-23 12:00] VITALS: BP 104/53
[2017-08-23 16:00] VITALS: BP 129/82
[2017-08-23 20:00] VITALS: BP 118/72
[2017-08-24] VITALS: BP 121/83
[2017-08-24 08:00] VITALS: BP 119/69
[2017-08-24 12:00] VITALS: BP 90/45
[2017-08-24 16:00] VITALS: BP 110/63
[2017-08-24] MEDS ORDERED: AZITHROMYCIN500 M1 IV (16:25)
[2017-08-24] MEDS ORDERED: DUONEB 3 MG/3 ML3 M1 NEB (16:25)
[2017-08-24] MEDS ORDERED: BREO ELLIPTA 21 EACH INH (16:25)
[2017-08-24] MEDS ORDERED: SINGULAIR10 M1 PO (16:25)
== END 2017-08-24 17:25 | disposition home or self-care (01) | DRG 189 ==
LOC: ICCU 15:07 → 5E 15:07 → ICCU 15:46 → 5E 08-23 14:23
PROVIDERS: Internal Medicine
DX: J96.20 Acute and chronic respiratory failure, unspecified whether with hypoxia or hypercapnia (principal); I48.2 Chronic atrial fibrillation; J45.901 Unspecified asthma with (acute) exacerbation; E11.9 Type 2 diabetes mellitus without complications; D72.829 Elevated white blood cell count, unspecified; E66.8 Other obesity; F41.1 Generalized anxiety disorder; J20.9 Acute bronchitis, unspecified; K21.9 Gastro-esophageal reflux disease without esophagitis; G47.33 Obstructive sleep apnea (adult) (pediatric); Z88.8 Allergy status to other drugs, medicaments and biological substances; Z88.1 Allergy status to other antibiotic agents; Z88.0 Allergy status to penicillin; Z91.013 Allergy to seafood; Z68.36 Body mass index [BMI] 36.0-36.9, adult

== ENCOUNTER → 2017-10-25 | Outpatient (CLI) | payer MEDICARE, OTHER ==
[~2017-10-25] MED LIST changes: +AZITHROMYCIN500 M1 IV; +DALIRESP500 MC1 PO; +DUONEB 3 MG/3 ML3 M1 NEB; +MUCINEX1200 M1 PO; +TOPAMAX25 M3 PO
== END | disposition home or self-care (01) ==
LOC: MEDIPORT 10-13 11:30
DX: I87.8 Other specified disorders of veins (principal)

== ENCOUNTER 2017-11-06 09:25 | Inpatient (IN) | payer MEDICARE, MEDICAID ==
[~2017-11-06] VITALS: Ht 172.7 cm; Wt 117.2 kg
--- NOTE | ~2017-11-06 | CON ---
[place], [place] REPORT OF CONSULTATION NAME: GUANACO HAIR [facility] #: [id number] UNIT #: [id number] ROOM: 415 DOCTOR: MIGUEL A MAYA MD BIRTHDATE: [birth year] DOS: 11/07/2017 CONSULTATION REQUESTED BY: Dr. Galloway. REASON FOR CONSULTATION: For assessment of symptoms of shortness of breath. HISTORY OF PRESENT ILLNESS: A 32-year-old white female known with past history of bronchial asthma. The patient has been treated in the hospital previously. She presented to the Emergency Room on 11/06/2017. The patient reported with having symptoms of migraine headache for the prophylaxis. She took the first dose of the propranolol, 50 minutes after the medication, she developed symptoms of tightness in the chest with the shortness of breath. She came into the Emergency Room for the patient and was assessed. The patient's pulse oxygen saturation noted 80%. The patient was started on oxygen supplementation nasal cannula. The saturation of oxygen of the patient improved after that. The patient did report symptoms of having a mild cough without any sputum expectoration. The patient did report symptoms of wheezing, previously does seem to be resolved. REVIEW OF SYSTEMS: CONSTITUTIONAL: She does report some symptoms of fatigue and tiredness. Denies symptoms of fever or chills. EYES: Denies any burning, redness, or tenderness. EARS, NOSE, THROAT SYMPTOMS: Denies sore throat, hoarseness, otalgia, postnasal drainage or epistaxis. CARDIOVASCULAR: Denies angina pain, edema or pain of the lower extremities. GASTROINTESTINAL: Denies dysphagia, nausea, vomiting, diarrhea, abdominal pain, hematemesis, melena, or hematochezia. GENITOURINARY: No dysuria, suprapubic pain or hematuria. MUSCULOSKELETAL: Denies any acute joint pain, redness, or tenderness. SKIN: Denies any abnormal lesions or rashes. CENTRAL NERVOUS SYSTEM: Denies symptoms of dizziness, diplopia or tingling sensation of the extremities. Headache for the patient, which have been noted for migrainous headache still reported by the patient. Remaining systems were reviewed. They were noted all negative. PAST MEDICAL HISTORY: The patient was known with history of: 1. Mild intermittent bronchial asthma. 2. Allergic rhinitis. 3. Gastroesophageal reflux treated with the surgery for the patient for the hiatal hernia, marked improvement reported. 4. Chronic obesity. 5. Type 2 diabetes mellitus. 6. General anxiety disorder. 7. History of gastroparesis. 8. Obstructive sleep apnea disorder. No inhalers with the treatment. 9. Atrial fibrillation, on anticoagulation. 10. Poor peripheral venous access. [place], [place] REPORT OF CONSULTATION NAME: GUANACO HAIR UNIT #: [id number] ROOM: [facility] DOCTOR: MEHDI JEAN MD,MIGUEL A BIRTHDATE: [birth year] PAST SURGICAL HISTORY: Reported: 1. MediPort insertion, removal later on. 2. Acute tubular necrosis. 3. Complete hysterectomy. 4. Bilateral myringotomy tubes. 5. Prolapsed bladder for the patient at the insertion of the sling. 6. Therapeutic bronchoscopies. 7. Previous EGDs. 8. History of hiatal hernia surgery of the patient in 2017. SOCIAL HISTORY: The patient is , has 2 children, lives at home. There were no history of alcohol use, illicit drug use. FAMILY HISTORY: Both parents living without any known medical illnesses. CURRENT MEDICATIONS: Administration noted use of Daliresp, Topamax, Singulair, loratadine, DuoNeb, Xanax, and other p.r.n. medications. DRUG ALLERGY HISTORY: The patient was noted allergy. 1. PENICILLIN. 2. SULFA DRUGS. 3. DULERA. 4. BIAXIN. 5. PROPRANOLOL. 6. REGLAN. 7. SILICONE. PHYSICAL EXAMINATION: GENERAL: A 32-year-old white female, currently resting comfortably, lying in the bed without acute distress. Height of 5 feet 8 inches, weight of 258 pounds, BMI 39.2. VITAL SIGNS: Normal temperature, respiratory rate 16-17, heart rate 71-100, blood pressure 164-123/78. Pulse oxygen saturation of the patient recorded on room air as 97% saturation. HEENT: Examination shows head was atraumatic. Moderate obesity. NECK: Supple. CARDIOVASCULAR: S1, S2 audible. LUNGS: The patient was noted without any wheezing or crackles at the present time. Breaths are noted mildly diminished bilaterally. ABDOMEN: Soft, nontender, bowel sounds present. EXTREMITIES: The patient noted without any acute edema. MUSCULOSKELETAL: Noted without any acute deformities. CENTRAL NERVOUS SYSTEM: Cranial nerves 2-12 intact. LABORATORY DATA: CBC that was done yesterday for the patient was noted as normal CBC. The PT and PTT of the patient noted as normal. The CMP that was done for the patient on 11/06/2017 noted normal BUN and creatinine. Beta hCG was noted negative. Arterial blood gas of the patient 11/06/2017, pH of 7.42, pCO2 of 32, pO2 179. The troponin of the patient remains negative and normal in the last 24 hours. CBC this morning was noted as normal. Chest x-ray of the [place], [place] REPORT OF CONSULTATION NAME: GUANACO HAIR UNIT #: [id number] ROOM: 415 DOCTOR: MEHDI JEAN MD,MIGUEL A BIRTHDATE: [birth year] patient 1 view was noted without any acute abnormalities. Arterial blood gas yesterday in the Emergency Room, pH of 7.42, pCO2 of 32, pO2 79, on 4 liters nasal cannula. IMPRESSION: 1. The patient with anaphylaxis related to the propranolol with acute hypoxic respiratory failure, ____ bronchospasm, currently noted significant improvement since admission. 2. Chronic obesity of the patient. 3. Obstructive sleep apnea disorder, nonadherence with the treatment. 4. Past history of gastroesophageal reflux, which was noted well controlled. 5. History of gastroparesis. PLAN OF MANAGEMENT: Continuation of the current management with a symptomatic management for the patient without any changes. She could be assessed for home discharge upon stability of her overall medical condition. Other supportive therapy, plan of management. No additional changes in the treatment needs to be done. The patient is already being treated for the patient's medication anaphylaxis in the Emergency Room and noted with complete resolution of the symptoms. The oxygen could be titrated off. MIGUEL A HARDING MD CM:CONSTR:REPORT OF CONSULTATION 1259 11/07/17 7036 interface
--- NOTE | ~2017-11-06 | EKG ---
[place], [place] ELECTROCARDIOGRAM REPORT NAME: GUANACO HAIR UNIT #: [id number] ROOM: [facility] DOCTOR: MEHDI JEAN MD,MIGUEL A BIRTHDATE: [birth year] DOS: 11/06/2017 ELECTROCARDIOGRAM TIME: 10:03 a.m. FINDINGS: Normal sinus rhythm noted 74 beats per minute without any electrocardiographic abnormalities. MIGUEL A HARDING MD CM:EKGRPT:ELECTROCARDIOGRAM REPORT [id number] MIGUEL A JEAN MD
--- NOTE | ~2017-11-06 | EKG ---
[place], [place] ELECTROCARDIOGRAM REPORT NAME: GUANACO HAIR UNIT #: [id number] ROOM: 415 DOCTOR: MEHDI JEAN MD,MIGUEL A BIRTHDATE: [birth year] DOS: 11/06/2017 ELECTROCARDIOGRAM The electrocardiogram done on 11/06/2017. Normal sinus rhythm noted. Heart rate 77 beats per minute. Mild prolongation of the TN interval was noted. MIGUEL A HARDING MD CM:EKGRPT:ELECTROCARDIOGRAM REPORT [id number] 1303 MIGUEL A JEAN MD
--- NOTE | ~2017-11-06 | WRIGHTHP ---
[place], [place] PATIENT HISTORY AND PHYSICAL EXAM NAME: GUANACO HAIR [facility] #: [id number] UNIT #: [id number] ROOM: 415 DOCTOR: AIYANA MAGUIRE MD BIRTHDATE: [birth year] DOS: 11/06/2017 HISTORY OF PRESENT ILLNESS: The patient is a 32-year-old female with a past medical history of: 1. Multiple allergies to many medications. 2. History of bronchial asthma and asthmatoid wheezing. 3. Chronic obstructive pulmonary disease. 4. Obesity. 5. Recurrent attacks of asthmatoid wheezing. 6. Severe generalized anxiety disorder. The patient presented to [facility] with shortness of breath and wheezing starting half an hour after she took a new medication, PROPRANOLOL. The patient was found to be hypoxemic with a pulse ox of 70% with decreased breath sounds and some wheezing. The patient cannot tolerate Solu-Medrol or prednisone, so she was given epinephrine and she responded quickly and her breathing improved. The patient is still complaining of some chest tightness and shortness of breath, but overall better. No dizziness or fainting episode. No other GI or urinary symptoms. REVIEW OF SYSTEMS: LUNGS: Increased shortness of breath and wheezing. GASTROINTESTINAL: No nausea, vomiting, diarrhea or constipation. CARDIOVASCULAR: No chest pains or palpitations but the patient did have an increased heart rate after she took PROPRANOLOL. FAMILY HISTORY: Noncontributory. PHYSICAL EXAMINATION: GENERAL APPEARANCE: The patient is alert and oriented x 3, in no visible distress. VITAL SIGNS: Blood pressure 101/71, heart rate of 76 beats per minute, breathing normally at 16 times per minute and afebrile. HEENT AND NECK: Extraocular movements are intact. Sclerae are anicteric. Oral mucosa is moist and clean. No obvious facial weakness. Neck is supple without any lymphadenopathy. No thyromegaly. No JVD. No carotid arterial bruits. LUNGS: Clear to auscultation. No wheezing. No rhonchi. CARDIOVASCULAR SYSTEM: Heart rate is regular in rate and rhythm. S1 and S2 normally audible. No significant murmur or any other abnormal cardiac sounds. ABDOMEN: Soft, nontender. No obvious organomegaly. Bowel sounds are present. No obvious herniation. EXTREMITIES: Without significant cyanosis or edema. Warm to touch. CENTRAL NERVOUS SYSTEM: Alert and oriented x 3. Cranial nerves II-XII are intact. Speech is normal. The patient is able to move all extremities. Normal muscle strength. Deep tendon reflexes are equal on both sides. Plantars were downgoing. IMPRESSION: 1. The patient with acute asthmatoid wheezing and shortness of breath with acute exacerbation of COPD after she took PROPRANOLOL which we marked as an [place], [place] PATIENT HISTORY AND PHYSICAL EXAM [facility]: [id number] UNIT #: [id number] ROOM: [facility] DOCTOR: AIYANA MAGUIRE MD BIRTHDATE: [birth year] allergy and she responded to treatment with epinephrine. The patient is being kept on Pulmicort and DuoNeb inhalations and followed closely. 2. Severe and daily migraine headaches, which were to be treated with PROPRANOLOL, but the patient can tolerate this medicine, so I am starting her on a small dose of Topamax and watch her closely on a monitored bed. 3. Pollen allergies, treated and controlled with loratadine and Singulair. 4. Chronic obstructive pulmonary disease with acute exacerbation, being treated with bronchodilators. 5. Severe generalized anxiety disorder, treated and controlled with Xanax as needed. AIYANA MAGUIRE MD CM:HISPHYS:PATIENT HISTORY AND PHYSICAL EXAMINATION [id number] AIYANA MAGUIRE MD 11/07/17 1037 interface
--- NOTE | ~2017-11-06 | PR ---
[place], [place] PROGRESS NOTE NAME: GUANACO HAIR [facility] #: [id number] UNIT #: [id number] ROOM: 415 DOCTOR: MEHDI JEAN MD,MIGUEL A BIRTHDATE: [birth year] DOS: 11/08/2017 SUBJECTIVE: The patient was noted comfortable at this time ____ acute shortness of breath, coughing, wheezing or other acute symptoms. She has not been noted any further episodes of hypoxia. OBJECTIVE: VITAL SIGNS: For the patient which are recorded showed normal temperature, respiratory rate 18, heart rate 91, blood pressure 90/53. Pulse oxygen on room air 98% saturation. HEAD, EYES, EARS, NOSE, AND THROAT: No acute change. NECK: Supple. CARDIOVASCULAR: S1, S2 is audible. LUNGS: Without any wheeze or crackles. ABDOMEN: Soft, nontender and obese. EXTREMITIES: No acute edema. IMPRESSION: Resolution of the acute hypoxic respiratory failure secondary to anaphylaxis. Bronchial asthma remain stable at this time without any acute symptoms. PLAN OF TREATMENT: Plan of management consideration for home discharge today. Continuation of the plan of management at this time without changes. Usual care, other supportive plan of management. MIGUEL A HARDING MD CM:PNTRANS [id number] MIGUEL A JEAN MD 11/08/17 1358 interface
--- NOTE | ~2017-11-06 | DS ---
[place], [place] DISCHARGE SUMMARY NAME: GUANACO HAIR UNIT #: [id number] ROOM: 415 DOCTOR: AIYANA MAGUIRE MD BIRTHDATE: [birth year] DOS: 11/08/2017 DISCHARGE DIAGNOSES: 1. Acute allergic reaction to PROPRANOLOL. 2. Multiple allergies to MANY MEDICATIONS. 3. Bronchial asthma and asthmatoid wheezing history. 4. Chronic obstructive pulmonary disease. 5. Obesity. 6. Severe generalized anxiety disorder. HOSPITAL COURSE: The patient presented to the Emergency Department half an hour after taking PROPRANOLOL with shortness of breath and hypoxemia. Pulse ox was 70% and she was wheezing. The patient does not tolerate corticosteroids, so she was given epinephrine and her symptoms improved. The patient was kept in the hospital and monitored closely, treated with bronchodilators, oxygen and gradually her chest tightness and shortness of breath improved. The patient is asymptomatic and at her baseline now and is being discharged to home. Recurrent and daily migraine headaches, now are being treated with Toprol and she was given one dose of morphine in the hospital and treated with Tylenol. COPD and recurrent episodes of wheezing and shortness of breath with hospital admissions, sometimes treated as an outpatient, is better and she is breathing better now, asymptomatic. She still gets slight wheezing off and on, which is normal for her. Severe generalized anxiety, treated with Xanax as needed. POLLEN allergies, treated and controlled with loratadine and Singulair. LABORATORY DATA: Normal serum electrolytes. PT, PTT. Normal CBC. Negative test. DISCHARGE MANAGEMENT: Topamax 50 mg daily, Tylenol 1000 mg every 8 hours p.r.n. for headaches, Singulair 10 mg a day, loratadine 10 mg a day, DuoNeb every 4 hours, Pulmicort 0.5 mg b.i.d., Xanax p.r.n., Daliresp 500 mcg daily. [place], [place] DISCHARGE SUMMARY NAME: GUANACO HAIR UNIT #: [id number] ROOM: 415 DOCTOR: AIYANA MAGUIRE MD BIRTHDATE: [birth year] AIYANA MAGUIRE MD CM:LAURA [id number] AIYANA MAGUIRE MD 11/08/17 1352 interface
--- NOTE | ~2017-11-06 | EKG ---
[place], [place] ELECTROCARDIOGRAM REPORT NAME: GUANACO HAIR UNIT #: [id number] ROOM: [facility] DOCTOR: MEHDI JEAN MD,MIGUEL A BIRTHDATE: [birth year] DOS: 11/06/2017 ELECTROCARDIOGRAM At 3:40 p.m. Normal sinus rhythm was noted. Remaining electrocardiogram for this patient noted as normal. MIGUEL A HARDING MD CM:EKGRPT:ELECTROCARDIOGRAM REPORT 1240 1307 MIGUEL A JEAN MD
[~2017-11-06 09:25] MED LIST changes: -DALIRESP500 MC1 PO; -MUCINEX1200 M1 PO; -TOPAMAX25 M3 PO
[2017-11-06 09:28] VITALS: BP 113/79
[2017-11-06 10:08] LABS: BASO # 0.1 10*3/uL (0.0-0.1); BASO % 0.6 % (0.0-1.0); EOS # 0.3 10*3/uL (0.0-0.4); EOS % 3.5 % (1.0-4.0); HEMATOCRIT 40.1 % (37.0-47.0); HEMOGLOBIN 13.1 g/dl (12.0-16.0); LYMPH # 2.8 10*3/uL (1.3-4.4); LYMPH % 31.8 % (27.0-41.0); MEAN CELL VOLUME 86.8 fl (81.0-99.0); MEAN CORPUSCULAR HGB 28.4 pg (27.0-31.0); MEAN CORPUSCULAR HGB CONC 32.7 g/dl (33.0-37.0); MEAN PLATELET VOLUME 9.2 fl (9.6-12.3); MONO # 0.5 10*3/uL (0.1-1.0); MONO % 5.8 % (3.0-9.0); NEUT # 5.2 10*3/uL (2.3-7.9); NEUT % 58.1 % (47.0-73.0); PLATELET COUNT AUTOMATED 248 10*3/uL (130-400); RED BLOOD COUNT 4.62 10*6/uL (4.10-5.10); RED CELL DISTRI WIDTH 12.8 % (0-14.5); WHITE BLOOD COUNT 8.9 10*3/uL (4.8-10.8)
[2017-11-06 10:18] LABS: ACT PARTIAL THROMBO TIME 23.8 SECONDS (20.8-31.5); INTERNATIONAL NORM RATIO 0.9 (2.0-3.5)
[2017-11-06 10:25] LABS: ALBUMIN 3.4 gm/dl (3.1-4.5); ALKALINE PHOSPHATASE 100 U/L (45-117); BUN 12 mg/dl (7-24); CHLORIDE 109 mmol/L (98-107); CREATININE 0.68 mg/dL (0.55-1.02); SGOT/AST 6 IU/L (3-35); SGPT/ALT 18 U/L (12-78); SODIUM 140 mmol/L (136-145); TOTAL PROTEIN 6.9 gm/dL (6.4-8.2)
[2017-11-06 10:26] LABS: TROPONIN I < 0.015 ng/ml (<0.045)
[2017-11-06 10:27] LABS: ABG BASE EXCESS -1.8 mmol/L (-2.0-2.0); ABG HCO3 21.4 mmol/l (22-26); ABG O2 SATURATION 99.5 % (95-97); ARTERIAL BLOOD GAS PCO2 32.9 mmHg (35-45); ARTERIAL BLOOD GAS PH 7.428 (7.35-7.45)
[2017-11-06 10:57] VITALS: BP 135/95
[2017-11-06 12:00] VITALS: BP 146/114
[2017-11-06 12:10] VITALS: BP 136/93
[2017-11-06] MEDS ORDERED: DALIRESP500 MC1 PO (13:57)
[2017-11-06 16:00] VITALS: BP 123/78
[2017-11-06 20:00] VITALS: BP 99/55
[2017-11-07 00:19] VITALS: BP 101/71
[2017-11-07 06:02] LABS: BASO % 0.5 % (0.0-1.0); EOS # 0.2 10*3/uL (0.0-0.4); EOS % 2.8 % (1.0-4.0); HEMATOCRIT 39.8 % (37.0-47.0); HEMOGLOBIN 12.4 g/dl (12.0-16.0); LYMPH # 3.1 10*3/uL (1.3-4.4); LYMPH % 36.1 % (27.0-41.0); MEAN CORPUSCULAR HGB 27.7 pg (27.0-31.0); MEAN CORPUSCULAR HGB CONC 31.2 g/dl (33.0-37.0); MEAN PLATELET VOLUME 9.5 fl (9.6-12.3); MONO # 0.5 10*3/uL (0.1-1.0); MONO % 5.7 % (3.0-9.0); NEUT # 4.7 10*3/uL (2.3-7.9); NEUT % 54.7 % (47.0-73.0); PLATELET COUNT AUTOMATED 227 10*3/uL (130-400); RED BLOOD COUNT 4.47 10*6/uL (4.10-5.10); RED CELL DISTRI WIDTH 12.8 % (0-14.5); WHITE BLOOD COUNT 8.6 10*3/uL (4.8-10.8)
[2017-11-07 08:00] VITALS: BP 100/64
[2017-11-07 12:00] VITALS: BP 108/65
[2017-11-07 16:00] VITALS: BP 122/74
[2017-11-07 20:00] VITALS: BP 117/74
[2017-11-08] VITALS: BP 125/75
[2017-11-08 08:00] VITALS: BP 108/64; BP 90/53
[2017-11-08 10:35] VITALS: BP 108/64
[2017-11-08] MEDS ORDERED: TOPAMAX25 M3 PO (10:48)
== END 2017-11-08 12:15 | disposition home or self-care (01) | DRG 915 ==
LOC: ED 09:25 → 4E 11:14 → EDHOLD 11:14 → 4E 11:27
PROVIDERS: Emergency Medicine; Internal Medicine
DX: T88.6XXA Anaphylactic reaction due to adverse effect of correct drug or medicament properly administered, initial encounter (principal); J96.01 Acute respiratory failure with hypoxia; J44.1 Chronic obstructive pulmonary disease with (acute) exacerbation; E66.01 Morbid (severe) obesity due to excess calories; I48.91 Unspecified atrial fibrillation; J45.901 Unspecified asthma with (acute) exacerbation; G43.909 Migraine, unspecified, not intractable, without status migrainosus; K21.9 Gastro-esophageal reflux disease without esophagitis; T44.7X5A Adverse effect of beta-adrenoreceptor antagonists, initial encounter; G47.33 Obstructive sleep apnea (adult) (pediatric); F41.1 Generalized anxiety disorder; Z90.710 Acquired absence of both cervix and uterus; Z88.0 Allergy status to penicillin; Z88.2 Allergy status to sulfonamides; Z88.1 Allergy status to other antibiotic agents; Z88.8 Allergy status to other drugs, medicaments and biological substances; Z91.018 Allergy to other foods; Z79.899 Other long term (current) drug therapy; Z87.01 Personal history of pneumonia (recurrent); Z87.11 Personal history of peptic ulcer disease; Z87.440 Personal history of urinary (tract) infections; Z80.1 Family history of malignant neoplasm of trachea, bronchus and lung; Z83.49 Family history of other endocrine, nutritional and metabolic diseases; Z79.01 Long term (current) use of anticoagulants; Y92.89 Other specified places as the place of occurrence of the external cause; Z68.39 Body mass index [BMI] 39.0-39.9, adult

== ENCOUNTER 2017-12-04 13:43 | Inpatient (IN) | payer MEDICARE, MEDICAID ==
[~2017-12-04] VITALS: Ht 172.7 cm; Wt 114.8 kg
--- NOTE | ~2017-12-04 | CON ---
[place], [place] REPORT OF CONSULTATION NAME: GUANACO HAIR [facility] #: [id number] UNIT #: [id number] ROOM: 506 DOCTOR: MIGUEL A MAYA MD BIRTHDATE: [birth year] DOS: 12/05/2017 CONSULTATION REQUESTED BY: Dr. Galloway. REASON FOR CONSULTATION: To assess the patient's current ongoing abnormal respiratory symptoms of bronchial asthma exacerbation. HISTORY OF PRESENT ILLNESS: This is a 32-year-old white female patient who has been known to me with past history of bronchial asthma, which noted intermittent mild persistent previously. She has been admitted to the hospital on 12/04/2017. The patient came into the Emergency as she has been noted with symptoms of increased chest congestion, coughing with wheezing and shortness of breath with the symptoms have been noted progressively worsened. The patient denies symptoms of chest pain or any hemoptysis. She has been noted with current symptom for the past several days, which has been treated as an outpatient, but failed to respond to treatment. She does not take oral corticosteroids and usually use only inhaled corticosteroids. The patient has been taking inhaled corticosteroids or Advair previously as well, which has been discontinued because of the resolution of the acute respiratory symptom noted for over a year ago. REVIEW OF SYSTEMS: CONSTITUTIONAL: Fatigue and tiredness noted. Denies symptoms of fever or chills. EYES: Denies any burning, redness, or tenderness. EARS, NOSE, THROAT SYMPTOMS: Denies sore throat, hoarseness, otalgia, or postnasal drainage. CARDIOVASCULAR: No angina pain, edema, pain, lower extremities, or palpitation. GASTROINTESTINAL SYMPTOMS: Denies dysphagia, nausea, vomiting, diarrhea, abdominal pain, hematemesis, melena, or hematochezia. GENITOURINARY SYMPTOMS: No dysuria, suprapubic pain, or hematuria. MUSCULOSKELETAL: Denies any acute joint pain, redness, tenderness, or deformities. CENTRAL NERVOUS SYSTEM: Denies dizziness, headache, diplopia, or syncopal episodes. Remaining systems were reviewed, they were noted all negative. PAST MEDICAL HISTORY: Noted with a history of: 1. Mild intermittent bronchial asthma, previously known. 2. Allergic rhinitis. 3. Gastroesophageal reflux. The patient with a hiatal hernia, improved. The patient after previous laparoscopic surgery, fundoplication. 4. Chronic obesity. 5. Type 2 diabetes mellitus. 6. Gastroparesis related to diabetes mellitus. 7. Obstructive sleep apnea disorder. 8. Nonadherence to the treatment. 9. Atrial fibrillation. 10. Poor peripheral venous access. [place], [place] REPORT OF CONSULTATION NAME: GUAANCO HAIR UNIT #: [id number] ROOM: 506 DOCTOR: MEHDI JEAN MD,MIGUEL A BIRTHDATE: [birth year] PAST SURGICAL HISTORY: 1. MediPort insertion and then removal because of the infection, currently has another MediPort in place. 2. Complete hysterectomy. 3. Bilateral myringotomy tubes. 4. Prolapsed bladder surgical repair. 5. Therapeutic bronchoscopy. 6. EGDs. 7. Hiatal hernia repair, Jenise fundoplication in 2017. SOCIAL HISTORY: The patient is , has 2 children, lives at home. Denies any alcohol use, tobacco or illicit drug use per parents living. FAMILY HISTORY: Unknown medical illnesses. MEDICATIONS: Which the patient noted use of Topamax, Singulair, loratadine, Daliresp, DuoNeb. ALLERGIES: The patient noted as: 1. PENICILLINS: 2. SULFA DRUGS. 3. DULERA. 4. CLARITHROMYCIN 5. PROPRANOLOL. 6. REGLAN. 7. SILICONE. PHYSICAL EXAMINATION: GENERAL: This is a 32-year-old female patient who was being currently noted awake and alert sitting on the bed. The patient's height recorded by the nursing staff on current admission with height of 5 feet 8 inches, weight of 253 pounds, BMI 38.4. VITAL SIGNS: The patient showed normal temperature, respiratory 18-22, heart rate of 81-64, blood pressure ____ -113/54. Pulse ox saturation on room air 96% saturation. HEENT: Shows head was atraumatic. Eye nonicterus. NECK: Supple. CARDIOVASCULAR: S1, S2 audible. LUNGS: Moderate decreased breath sounds noted in the lungs with rather pwzp-ht-tmrcjgcy expiratory wheezing. There were no crackles. ABDOMEN: Soft, obese, nontender. Bowel sounds present. EXTREMITIES: The patient noted chronic obese with skin lesions or rashes. MUSCULOSKELETAL: Without acute deformities. CENTRAL NERVOUS SYSTEM: Cranial nerves 2-12 intact. LABORATORY DATA: CBC that was done yesterday, WBC count normal, hemoglobin, hematocrit, and platelet counts were normal. Lactic acid yesterday normal. Troponin yesterday was normal. Chest x-ray that was done, 1 view, in the Emergency were noted as normal. Urine culture noted no bacterial growth. Chest [place], [place] REPORT OF CONSULTATION NAME: GUANACO HAIR UNIT #: [id number] ROOM: 506 DOCTOR: MEHDI JEAN MD,MIGUEL A BIRTHDATE: [birth year] x-ray without any acute pulmonary infiltration. IMPRESSION: 1. Currently noted with acute exacerbation of bronchial asthma at the present time with environment allergies. The patient exposure is very likely cause. 2. History of allergic rhinitis. 3. History of obstructive sleep apnea disorder and other medical illnesses. PLAN OF MANAGEMENT: The patient will be started, Pulmicort Respules in the form of nebulizer for the medical management of bronchial asthma. Also, obtain the sputum for Gram stain and culture if be able to expectorate any sputum. Continuation of the bronchodilators; otherwise as ordered. Usual care, other supportive therapy, plan of management and care plan with the additional treatment changes to be made based on the progression of the illness. Monitor respiratory status otherwise closely. Supportive plan of management and other treatments. Thanks for allowing me to participate in the care of this patient. MIGUEL A HARDING MD CM:CONSTR:REPORT OF CONSULTATION 1332 12/06/17 0008 interface
--- NOTE | ~2017-12-04 | EKG ---
[place], [place] ELECTROCARDIOGRAM REPORT NAME: GUANACO HAIR UNIT #: [id number] ROOM: 506 DOCTOR: MEHDI JEAN MD,MIGUEL A BIRTHDATE: [birth year] DOS: 12/04/2017 ELECTROCARDIOGRAM REPORT DATE AND TIME OF PROCEDURE: 12/04/2017 at 3:24 p.m. FINDINGS: Electrocardiogram shows normal sinus rhythm. Heart rate 81 beats per minute. The electrocardiogram was noted normal. MIGUEL A HARDING MD CM:EKGRPT:ELECTROCARDIOGRAM REPORT [id number] MIGUEL A JEAN MD
--- NOTE | ~2017-12-04 | WRIGHTHP ---
[place], [place] PATIENT HISTORY AND PHYSICAL EXAM NAME: GUANACO HAIR [facility] #: [id number] UNIT #: [id number] ROOM: 506 DOCTOR: AIYANA MAGUIRE MD BIRTHDATE: [birth year] DOS: 12/04/2017 HISTORY OF PRESENT ILLNESS: The patient is a 32-year-old female with a past medical history of: 1. Asthmatoid wheezing and bronchial asthma. 2. Multiple allergies to many medications. 3. Chronic obstructive pulmonary disease. 4. Obesity. 5. Generalized severe anxiety disorder. The patient presented to the Emergency Department after failed outpatient treatment for increased shortness of breath and wheezing. The patient was diagnosed as having acute asthmatoid wheezing and she was already being treated with nebulizer treatments, inhaled corticosteroids, bronchodilators, and antibiotic as an outpatient for a week. The patient was admitted to a monitored bed and she is complaining of some chest tightness with shortness of breath and wheezing, which is persistent along with cough. No dizziness or fainting episodes. No other GI or urinary symptoms. No chest pains. The patient was started on bronchodilators, inhaled corticosteroids and Dr. Hutchinson, the fisheries inspector has been consulted. The patient says she cannot tolerate corticosteroids in any form except for the inhaled ones. 1. Generalized anxiety disorder to be treated with Xanax as needed. 2. Obesity, the patient to work with Dietary. SOCIAL HISTORY: Noncontributory. Does not smoke cigarettes. Denies any alcohol or drug abuse. HOME MEDICATIONS: Topamax, Singulair, loratadine, Daliresp, Duonebs. ALLERGIES: Known allergies to PENICILLIN, SULFA, DULERA, CLARITIN, PROPRANOLOL, METOCLOPRAMIDE, SILICONE, [place]. FAMILY HISTORY: Noncontributory. PHYSICAL EXAMINATION: GENERAL APPEARANCE: The patient is alert and oriented x 3, in no visible distress. HEENT AND NECK: Extraocular movements are intact. Sclerae are anicteric. Oral mucosa is moist and clean. No obvious facial weakness. Neck is supple without any lymphadenopathy. No thyromegaly. No JVD. No carotid arterial bruits. LUNGS: Clear to auscultation. Expiratory wheezing. No rhonchi. CARDIOVASCULAR SYSTEM: Heart rate is regular in rate and rhythm. S1 and S2 normally audible. No significant murmur or any other abnormal cardiac sounds. ABDOMEN: Soft, nontender. No obvious organomegaly. Bowel sounds are present. No obvious herniation. EXTREMITIES: Without significant cyanosis or edema. Warm to touch. CENTRAL NERVOUS SYSTEM: Alert and oriented x 3. Cranial nerves II-XII are intact. Speech is normal. The patient is able to move all extremities. Normal muscle strength. Deep tendon reflexes are equal on both sides. Plantars were [place], [place] PATIENT HISTORY AND PHYSICAL EXAM NAME: GUANACO HAIR [facility] #: [id number] UNIT #: [id number] ROOM: [facility] DOCTOR: AIYANA MAGUIRE MD BIRTHDATE: [birth year] downgoing. IMPRESSION: 1. Acute exacerbation of chronic obstructive pulmonary disease, with persistent wheezing and failed outpatient treatment, to be treated with bronchodilator, inhaled corticosteroids along with antibiotic and fisheries inspector, Dr. Hutchinson has been consulted to follow her. The patient is starting to feel better. 2. Generalized anxiety disorder, treated with Xanax as needed. 3. Obesity. The patient to work with Dietary. AIYANA MAGUIRE MD CM:HISPHYS:PATIENT HISTORY AND PHYSICAL EXAMINATION 0 0 AIYANA MAGUIRE MD 12/05/17 0949 interface
--- NOTE | ~2017-12-04 | DS ---
[facility] [place], [place] DISCHARGE SUMMARY NAME: GUANACO HAIR UNIT #: [id number] ROOM: 506 DOCTOR: AIYANA MAGUIRE MD BIRTHDATE: [birth year] DOS: 12/06/2017 DISCHARGE DIAGNOSES: 1. Acute exacerbation of chronic obstructive pulmonary disease. 2. Hiatal hernia repair and Jenise fundoplication in 2017. 3. History of multiple allergies to many medications. 4. Obesity. 5. Severe generalized anxiety disorder. 6. Migraine type headaches. HOSPITAL COURSE: The patient presented to [facility] for admission for failed outpatient treatment of shortness of breath and wheezing. The patient was already on inhaled corticosteroids, bronchodilators, antibiotic and still not improving. The patient admitted with significant expiratory wheezing and shortness of breath with cough and tracheitis. The patient was treated with inhaled corticosteroids, oxygen, bronchodilators, cough medicine and Dr. Hutchinson, the check out clerk was consulted, in case her breathing did not improve, then she would require bronchoscopy. Luckily patient's breathing has improved and she is not wheezing anymore and she is being discharged to home. 1. Severe generalized anxiety disorder, treated with Xanax as needed. 2. Some nausea, vomiting during her stay at the hospital has resolved. The patient was treated with Zofran. 3. Obesity. The patient is working with Dietary. Chest x-ray did not show any acute abnormality. DISCHARGE MEDICINES: Topamax 50 mg daily, Singulair 10 mg daily, loratadine 10 mg daily, Daliresp 500 mcg daily, DuoNeb q.i.d. with Pulmicort 0.5 mg b.i.d., Mucinex 1200 mg b.i.d. for a week. Follow up at the office with me in 2 days. Also, given Xanax 0.25 mg t.i.d. p.r.n. for anxiety. [facility] [place], [place] DISCHARGE SUMMARY NAME: GUANACO HAIR UNIT #: [id number] ROOM: 506 DOCTOR: AIYANA MAGUIRE MD BIRTHDATE: [birth year] AIYANA MAGUIRE MD CM:LAURA [id number] AIYANA MAGUIRE MD 12/06/17 1324 interface
--- NOTE | ~2017-12-04 | PR ---
[place], [place] PROGRESS NOTE NAME: GUANACO HAIR [facility] #: [id number] UNIT #: [id number] ROOM: 506 DOCTOR: MEHDI JEAN MD,MIGUEL A BIRTHDATE: [birth year] DOS: 12/06/2017 PULMONARY PROGRESS NOTE SUBJECTIVE: The patient noted comfortable at this time without any acute distress. Reported reduction of the symptoms of coughing, wheezing, chest congestion and shortness of breath, but the symptoms have not been completely resolved. She has been continued on bronchodilators, Pulmicort Respules and the antibiotics. OBJECTIVE: VITAL SIGNS: This morning recorded a normal temperature, respiratory rate 20, heart rate 76, blood pressure 111/74. Pulse ox saturation on room air 97% saturation. HEENT: Examination shows head was atraumatic. Eye, nonicterus. CARDIOVASCULAR: S1, S2 is audible. LUNGS: The patient was noted with mild expiratory wheezing, [id number]-nx-[id number] decreased breath sounds bilaterally. ABDOMEN: Soft and obese. The patient with chronic obesity changes. IMPRESSION: Stable respiratory status was noted at the present time with resolving acute exacerbation of bronchial asthma and bronchitis. PLAN OF THERAPY: No changes in the plan of care at this time. Continue the patient's current plan of management and care. Other therapy, plan of management and treatments. Usual care, other supportive plan of therapy and management plan. Possible discharge home might be considered for tomorrow morning depends on further improvement in the respiratory status. MIGUEL A HADRING MD CM:PNTRANS [id number] MIGUEL A JEAN MD 12/07/17 0125 interface
[~2017-12-04 13:43] MED LIST changes: +DALIRESP500 MC1 PO; +TOPAMAX25 M3 PO
[2017-12-04 13:45] VITALS: BP 119/57
[2017-12-04 15:22] LABS: BASO % 0.5 % (0.0-1.0); EOS # 0.2 10*3/uL (0.0-0.4); EOS % 2.9 % (1.0-4.0); HEMATOCRIT 42.7 % (37.0-47.0); HEMOGLOBIN 13.9 g/dl (12.0-16.0); LYMPH # 2.5 10*3/uL (1.3-4.4); LYMPH % 30.9 % (27.0-41.0); MEAN CELL VOLUME 86.4 fl (81.0-99.0); MEAN CORPUSCULAR HGB 28.1 pg (27.0-31.0); MEAN CORPUSCULAR HGB CONC 32.6 g/dl (33.0-37.0); MEAN PLATELET VOLUME 9.3 fl (9.6-12.3); MONO # 0.5 10*3/uL (0.1-1.0); MONO % 5.7 % (3.0-9.0); NEUT # 4.8 10*3/uL (2.3-7.9); NEUT % 59.9 % (47.0-73.0); PLATELET COUNT AUTOMATED 248 10*3/uL (130-400); RED BLOOD COUNT 4.94 10*6/uL (4.10-5.10); RED CELL DISTRI WIDTH 13.2 % (0-14.5); WHITE BLOOD COUNT 8.1 10*3/uL (4.8-10.8)
[2017-12-04 15:41] LABS: TROPONIN I < 0.015 ng/ml (<0.045)
[2017-12-04 15:45] VITALS: BP 121/77
[2017-12-04 15:46] VITALS: BP 102/74
[2017-12-04 18:26] LABS: BILIRUBIN NEGATIVE (NEGATIVE); BLOOD NEGATIVE (NEGATIVE); CLARITY SL CLOUDY (CLEAR); COLOR YELLOW (YELLOW); GLUCOSE NEGATIVE (NEGATIVE); KETONE NEGATIVE (NEGATIVE); LEUKO ESTERASE NEGATIVE (NEGATIVE); NITRITE NEGATIVE (NEGATIVE); PH 5.5 (5.0-9.0); SPECIFIC GRAVITY >= 1.030 (1.005-1.030); UROBILINOGEN 0.2 E.U./dl (0.2-1.0)
[2017-12-04 18:32] LABS: BACTERIA 4+
[2017-12-04 18:33] LABS: EPITHELIAL CELLS 21-30
[2017-12-04 20:00] VITALS: BP 116/59
[2017-12-05] VITALS: BP 118/63
[2017-12-05 08:00] VITALS: BP 96/46
[2017-12-05 12:00] VITALS: BP 113/54
[2017-12-05 16:00] VITALS: BP 107/64
[2017-12-05 20:00] VITALS: BP 121/60
[2017-12-05 23:58] VITALS: BP 120/63
[2017-12-06 07:48] LABS: ALBUMIN 3.6 gm/dl (3.1-4.5); ALKALINE PHOSPHATASE 90 U/L (45-117); BUN 8 mg/dl (7-24); CHLORIDE 111 mmol/L (98-107); CREATININE 0.72 mg/dL (0.55-1.02); POTASSIUM 4.3 mmol/L (3.5-5.1); SGOT/AST 6 IU/L (3-35); SGPT/ALT 13 U/L (12-78); SODIUM 144 mmol/L (136-145)
[2017-12-06 08:00] VITALS: BP 111/74
[2017-12-06] MEDS ORDERED: MUCINEX1200 M1 PO (10:16)
[2018-01-14] MEDS ORDERED: TRELEGY ELLIPT1 EACH INH (20:04)
[2018-01-18] MEDS ORDERED: MEDROL DOSEPAK4 MG PO (17:56)
[2018-01-18] MEDS ORDERED: DOXYCYCLINE100 MG PO (17:56)
== END 2017-12-06 10:51 | disposition home or self-care (01) | DRG 202 ==
LOC: ED 13:43 → 5E 15:17 → EDHOLD 15:17 → 5E 15:49
PROVIDERS: Internal Medicine Critical Care Medicine; Nurse Practitioner
DX: J45.901 Unspecified asthma with (acute) exacerbation (principal); J44.1 Chronic obstructive pulmonary disease with (acute) exacerbation; I48.91 Unspecified atrial fibrillation; K31.84 Gastroparesis; E11.9 Type 2 diabetes mellitus without complications; E11.43 Type 2 diabetes mellitus with diabetic autonomic (poly)neuropathy; G43.909 Migraine, unspecified, not intractable, without status migrainosus; Z68.38 Body mass index [BMI] 38.0-38.9, adult; K21.9 Gastro-esophageal reflux disease without esophagitis; E66.9 Obesity, unspecified; F41.1 Generalized anxiety disorder; G47.33 Obstructive sleep apnea (adult) (pediatric); Z88.8 Allergy status to other drugs, medicaments and biological substances; Z88.0 Allergy status to penicillin; Z88.2 Allergy status to sulfonamides; Z79.899 Other long term (current) drug therapy; Z90.710 Acquired absence of both cervix and uterus; Z90.89 Acquired absence of other organs; Z80.1 Family history of malignant neoplasm of trachea, bronchus and lung; Z80.8 Family history of malignant neoplasm of other organs or systems; Z84.89 Family history of other specified conditions

== ENCOUNTER 2017-12-11 09:47 | Inpatient (IN) | payer MEDICARE, MEDICAID ==
[2017-12-11] VITALS: BP 127/67
[~2017-12-11] VITALS: Ht 175.2 cm; Wt 114.4 kg
--- NOTE | ~2017-12-11 | CON ---
[place], [place] REPORT OF CONSULTATION NAME: GUANACO HAIR [facility] #: [id number] UNIT #: [id number] ROOM: 401 DOCTOR: MIGUEL A MAYA MD BIRTHDATE: [birth year] DOS: 12/12/2017 PULMONARY CONSULTATION CONSULTATION REQUESTED BY: Ray Galloway M.D. REASON FOR CONSULTATION: To assess the patient for recurrence of acute respiratory symptoms. HISTORY OF PRESENT ILLNESS: This is a 32-year-old white female patient who has been recently admitted to the hospital, remained in the hospital a couple of days and sent home. The patient presented back to the Emergency Room after discharge from the hospital on 12/06/2017. She stated that she has developed symptoms of increased cough with chest congestion and wheezing. Cough has been noted increased in frequency and intensity and remains nonproductive, associated with chest congestion, unable to expectorate sputum. The symptoms were also associated with presence of wheezing, which is also noted worsened. Shortness of breath occurs with exertion. She denies symptoms of hemoptysis. She denies symptoms of acute chest pain. Since admission to the hospital yesterday, she has not reported any changes and improvement in the respiratory symptoms noted with persistent respiratory symptoms. Past medical history, surgical history, social history and family history are all noted unchanged for the patient since last assessment, which was done during consultation on 12/06/2017. MEDICATIONS: The patient's current medications administered were noted as use of Cardizem CD, DuoNeb, Mucinex, Rocephin, and other p.r.n. medications. ALLERGIES: DRUG ALLERGY HISTORY NOTED ALLERGY TO: 1. PENICILLIN. 2. SULFA DRUGS. 3. CLARITHROMYCIN. 4. PROPRANOLOL. 5. REGLAN. 6. DULERA. PHYSICAL EXAMINATION: GENERAL: This is a 32-year-old white female, currently sitting on the bed without any acute distress at this time. Height of 5 feet 9 inches, weight of 252 pounds with mild audible wheezing. VITAL SIGNS: Normal temperature. Respiratory rate recorded as 20. Heart rate of 102, mild sinus tachycardia. Blood pressure 104/62. HEENT: Examination shows rilj-qp-hpmpmyxf obesity. Head was atraumatic. Eyes nonicterus. NECK: Supple. Wqyj-af-efjwfunp obesity. CARDIOVASCULAR: S1, S2 is audible. LUNGS: Noted with moderate expiratory wheezing. No crackles. ABDOMEN: Soft. Bowel sounds present. EXTREMITIES: Without any acute edema. [place], [place] REPORT OF CONSULTATION NAME: GUANACO HAIR UNIT #: [id number] ROOM: [facility] DOCTOR: MIGUEL A MAYA MD BIRTHDATE: [birth year] MUSCULOSKELETAL: Without any deformity. CENTRAL NERVOUS SYSTEM: Cranial nerves 2-12 intact. LABORATORY DATA: CMP that was done yesterday is normal. CBC that was done yesterday is normal, except eosinophils of 5.8%. IMPRESSION: 1. 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 Not using any corticosteroids and does not wish to do so. Only using the short-acting bronchodilators and Singulair. 2. Recent hospitalizations noted a few times for the same symptoms. 3. Nonproductive cough with mucus impaction. 4. Chronic obesity and other medical illnesses. 5. History of obstructive sleep apnea disorder, nonadherence with treatment. PLAN OF MANAGEMENT: The patient was started on inhaled steroids in the form of nebulizer treatment at this time. She might require long-term inhaled corticosteroids, might need to be assessed for alternative medication of steroid because of the current eosinophilia as a biological agent if she will qualify for that. Bronchoscopy was scheduled to be done tomorrow morning to help clear mucus impaction in major airways. Order Mucinex 600 mg p.o. b.i.d. for this patient as well. Other additional treatment changes will be made for the patient based on the progression of the illness. Thank you for allowing me to participate in the care of this patient. MIGUEL A HARDING MD CM:CONSTR:REPORT OF CONSULTATION 1112 12/12/17 [id number] interface
--- NOTE | ~2017-12-11 | PR ---
[place], [place] PROGRESS NOTE [id number] UNIT #: [id number] ROOM: 401 DOCTOR: AIYANA MAGUIRE MD BIRTHDATE: [birth year] DOS: 12/15/2017 SUBJECTIVE: The patient has shortness of breath and continued wheezing, status post bronchoscopy. OBJECTIVE: VITAL SIGNS: Blood pressure 125/81, heart rate ranging between 94-115 beats per minute, breathing 20 times per minute, temperature 98 degrees Fahrenheit. HEENT AND NECK: Exam within normal limits. CARDIOVASCULAR SYSTEM: Heart rate is regular in rate and rhythm. S1 and S2 normally audible. LUNGS: Clear to auscultation, expiratory wheezing. ABDOMEN: Soft, nontender. No obvious organomegaly. Bowel sounds are present. EXTREMITIES: Without significant cyanosis or edema. IMPRESSION: 1. The patient with acute exacerbation of chronic obstructive pulmonary disease and bronchial asthma with asthmatoid wheezing. She still continues to wheezes, although Dr. Hutchinson feels that she can be discharged to home soon. The patient is on bronchodilators, inhaled corticosteroids with very slow improvement with treatment. 2. Chronic obesity. The patient is working with dietary. 3. Allergic rhinitis and POLLEN allergies, treated with Claritin and asymptomatic. 4. Tachycardia and palpitations improved. 5. Severe generalized anxiety disorder, treated with Xanax as needed. 6. Hiatal hernia and Jenise fundoplication without any heartburns. 7. Migraine type headaches, controlled. The patient takes Topamax. AIYANA MAGUIRE MD CM:PNTRANS [id number] AIYANA MAGUIRE MD 01/04/18 0655 interface
--- NOTE | ~2017-12-11 | PR ---
[place], [place] PROGRESS NOTE NAME: LAXMIGUANACO Kaminski UNIT #: [id number] ROOM: 401 DOCTOR: AIYANA MAGUIRE MD BIRTHDATE: [birth year] DOS: 12/14/2017 SUBJECTIVE: The patient is still wheezing and short of breath after bronchoscopy yesterday. OBJECTIVE: VITAL SIGNS: Blood pressure 103/54, heart rate 86 beats per minute, breathing 20 times per minute, temperature 98.2 degrees Fahrenheit. GENERAL APPEARANCE: The patient is alert and oriented x 3, in no visible distress. Obesity. HEENT AND NECK: Exam within normal limits. CARDIOVASCULAR SYSTEM: Heart rate is regular in rate and rhythm. S1 and S2 normally audible. LUNGS: The patient with severe expiratory wheezing all over her lungs. ABDOMEN: Soft, nontender. No obvious organomegaly. Bowel sounds are present. EXTREMITIES: Without significant cyanosis or edema. IMPRESSION: 1. The patient with acute exacerbation of chronic obstructive pulmonary disease with asthmatoid wheezing with shortness of breath, being treated with bronchodilators, inhaled corticosteroids, oxygen, antibiotics, Singulair, and Claritin without much improvement. Dr. Hutchinson, the nurse is following her and she had a bronchoscopy yesterday. 2. Chronic obesity. The patient working with dietary. 3. Allergic rhinitis with POLLEN allergies, treated with Claritin, asymptomatic. 4. Tachycardia and palpitations, resolved, apparently related to respiratory failure. 5. Possible allergic reaction to Cardizem. The patient has severe allergies to multiple medications. The patient's Cardizem is being stopped. 6. Severe generalized anxiety disorder, treated with Xanax as needed. 7. Hiatal hernia and Jenise fundoplication without heartburns. 8. Migraine type headaches, now controlled with Topamax. [place], [place] PROGRESS NOTE NAME: LAXMIGUANACO UNIT #: [id number] ROOM: 401 DOCTOR: AIYANA MAGUIRE MD BIRTHDATE: [birth year] AIYANA MAGUIRE MD CM:PNTRANS [id number] AIYANA MAGUIRE MD 12/15/17 0421 interface
--- NOTE | ~2017-12-11 | WRIGHTHP ---
[place], [place] PATIENT HISTORY AND PHYSICAL EXAM NAME: GUANACO HAIR [facility] #: [id number] UNIT #: [id number] ROOM: 403 DOCTOR: AIYANA MAGUIRE MD BIRTHDATE: [birth year] DOS: 12/11/2017 HISTORY OF PRESENT ILLNESS: 1. The patient is a 32-year-old female with chronic history of bronchial asthma and asthmatoid wheezing with COPD with recurrent episodes of acute over chronic respiratory failure, which is generally resistant to treatment, recently discharged from hospital on 12/06/2017. 2. Hiatal hernia repair and Jenise fundoplication in 2017. 3. Multiple allergies to many medications. 4. Obesity. 5. Severe generalized anxiety disorder. 6. Migraine type headaches. 7. Pollen allergies. The patient again presented to [facility] after she was recently discharged on 12/06/2017 after being treated for acute exacerbation of COPD. The patient says as soon as she got home, she apparently got another infection and started becoming more short of breath and started wheezing. The patient has cough with purulent sputum and significant amount of inspiratory and expiratory wheezing. The patient was evaluated in the Emergency Department and admitted under care of Dr. Malina Abreu initially after which she requested a transfer under my services. There are no complaints of chest pain. No dizziness or fainting episode. No other GI or urinary symptoms. REVIEW OF SYSTEMS: RESPIRATORY: Increased shortness of breath and wheezing with cough and sputum. GASTROINTESTINAL: No nausea, vomiting, diarrhea or constipation. CARDIOVASCULAR: No chest pains or palpitations. HOME MEDICATIONS: Topamax, Singulair, loratadine, Daliresp, DuoNeb, Pulmicort, Mucinex, Xanax. FAMILY HISTORY: Noncontributory. ALLERGIES: Known allergies to PENICILLIN, SULFUR, DULERA, BIAXIN, PROPRANOLOL, REGLAN, SILICONE, [place] and PROPRANOLOL. PHYSICAL EXAMINATION: GENERAL: Alert, oriented x 3 with some difficulty with breathing and obvious wheezing. Obesity. VITAL SIGNS: Blood pressure 111/72, heart rate 90 beats per minute, breathing 18 times per minute, afebrile. HEENT AND NECK: Extraocular movements are intact. Sclerae are anicteric. Oral mucosa is moist and clean. No obvious facial weakness. Neck is supple without any lymphadenopathy. No thyromegaly. No JVD. No carotid arterial bruits. LUNGS: Clear to auscultation. Decreased breath sounds, both inspiratory and expiratory wheezing. CARDIOVASCULAR SYSTEM: Heart rate is regular in rate and rhythm. S1 and S2 normally audible. No significant murmur or any other abnormal cardiac sounds. ABDOMEN: Soft, nontender. No obvious organomegaly. Bowel sounds are present. [place], [place] PATIENT HISTORY AND PHYSICAL EXAM [id number] #: [id number] ROOM: [facility] DOCTOR: AIYANA MAGUIRE MD BIRTHDATE: [birth year] No obvious herniation. EXTREMITIES: Without significant cyanosis or edema. Warm to touch. CENTRAL NERVOUS SYSTEM: Alert and oriented x 3. Cranial nerves II-XII are intact. Speech is normal. The patient is able to move all extremities. Normal muscle strength. Deep tendon reflexes are equal on both sides. Plantars were downgoing. LABORATORY DATA: Chest x-ray was clear. Normal CBC. IMPRESSION AND PLAN: 1. Acute exacerbation of severe underlying chronic obstructive pulmonary disease and recurrent episodes with acute respiratory failure despite of complete treatment as an outpatient. The patient cannot tolerate corticosteroids except for the inhaled corticosteroids, so she is being started on bronchodilators and inhaled corticosteroids with antibiotic, oxygen, and nebulizer treatments. The patient has very resistant acute over chronic respiratory failure and recurrent episodes for which I am consulting tacking machine operator, Dr. Hutchinson to evaluate her and possibly perform a bronchoscopy to clear her airways to get good specimens for respiratory secretions and also to clear her airways to enhance recovery. 2. Severe generalized anxiety disorder to be treated with Xanax as needed. 3. Chronic migraine type headaches, treated with Topamax. The patient is tolerating this medication. 4. Obesity. The patient worked with dietary. 5. Hiatal hernia repair, Jenise fundoplication. No complaints of heartburns. 6. Pollen allergies treated with Singulair, loratadine. AIYANA MAGUIRE MD CM:HISPHYS:PATIENT HISTORY AND PHYSICAL EXAMINATION [id number] AIYANA MAGUIRE MD 12/11/17 1313 interface
--- NOTE | ~2017-12-11 | PROC NOTE ---
[place], [place] PROCEDURE NOTE [id number] #: [id number] ROOM: 401 DOCTOR: MEHDI JEAN MD,MIGUEL A BIRTHDATE: [birth year] DOS: 12/13/2017 PREOPERATIVE DIAGNOSES: Persistent cough and wheezing with current history of bronchial asthma. POSTOPERATIVE DIAGNOSES: Removal mucous impaction of major airways. Tracheobronchitis finding was also noted. PROCEDURE DESCRIPTION: Informed consent was obtained from the patient. The patient was brought to the OR and placed in supine position. Conscious sedation was administered by the Anesthesia Department. After achieving proper sedation, airway introduced into the mouth. Bronchoscope advanced to the airway into laryngeal area. Epiglottis and vocal cords were seen. Vocal cords moving symmetrically with movements. Bronchoscope advanced to the vocal cord into tracheal lumen. The tracheal lumen was noted with small amount of secretion was suctioned out. Right upper, right middle, right lower, left upper, lingula, lower lobe bronchi were all examined. Endobronchial secretions also clear off endobronchial tree bilaterally. All secretions sent for culture. Procedure was tolerated by the patient without complication. Postoperative findings will be discussed with the patient once the patient recovered the effects of acute sedation. MIGUEL A HARDING MD CM:PROCNOTE:PROCEDURE NOTE [id number] [id number] MIGUEL A JEAN MD
--- NOTE | ~2017-12-11 | PR ---
[place], [place] PROGRESS NOTE NAME: GUANACO HAIR [facility] #: [id number] UNIT #: [id number] ROOM: 401 DOCTOR: MEHDI JEAN MD,MIGUEL A BIRTHDATE: [birth year] DOS: 12/15/2017 SUBJECTIVE: The patient was seen and examined on 12/15/2017. She is noted comfortable at this time. Wheezing is improving, not completely resolved. Cough has been decreased. Bronchoscopy was completed a couple of days ago. The patient denies symptoms of chest pain. OBJECTIVE: VITAL SIGNS: Normal temperature, respiratory rate of 20, heart rate of 123-119 earlier, blood pressure 107/66 to 116/56. HEENT: Shows head was atraumatic, eyes nonicterus. NECK: Supple. CARDIOVASCULAR: S1, S2 audible. LUNGS: The patient was noted with mild expiratory wheezing bilaterally. There were no crackles. ABDOMEN: Soft, nontender. Bowel sounds present. LABORATORY DATA: Culture of the bronchial washing of the patient noted normal miguel angel today that was done a couple of days ago. IMPRESSION: The patient is currently noted weak and hospitalization with acute exacerbation of bronchial asthma, difficulty use of intravenous or oral corticosteroids, treated with nebulized steroids. PLAN OF TREATMENT: The patient can be discharged home today. The patient is feeling better at this time. Tachycardia was noted intermittently, which seemed to be better. Continue previous home medications including Breo Ellipta. Outpatient followup is suggested to the patient post-discharge. MIGUEL A HARDING MD CM:PNMIREYA 5 MIGUEL A JEAN MD 12/15/17 0823 interface
--- NOTE | ~2017-12-11 | PR ---
[place], [place] PROGRESS NOTE [facility] [id number] UN[facility] #: [id number] ROOM: 401 DOCTOR: AIYANA MAGUIRE MD BIRTHDATE: [birth year] DOS: 12/12/2017 SUBJECTIVE: The patient says her breathing is still bad and she is short of breath and wheezing and her dose of DuoNeb, which was decreased to every 6 hours because of palpitations has made her breathing even worse. OBJECTIVE: VITAL SIGNS: Blood pressure 122/82, heart rate of 80 beats per minute, breathing 20 times per minute, temperature 98 degrees Fahrenheit. GENERAL APPEARANCE: The patient is alert and oriented x 3, in no visible distress. HEENT AND NECK: Exam within normal limits. CARDIOVASCULAR SYSTEM: Heart rate is regular in rate and rhythm. S1 and S2 normally audible. LUNGS: On lung auscultation, the patient has expiratory wheezing. ABDOMEN: Soft, nontender. No obvious organomegaly. Bowel sounds are present. EXTREMITIES: Without significant cyanosis or edema. IMPRESSION: 1. The patient with acute exacerbation of chronic obstructive pulmonary disease, wheezing and shortness of breath, being treated with antibiotics, oxygen, nebulizer treatments. I will increase her back to every 4 hours as the heart rate has improved with Cardizem. 2. Tachycardia and palpitations, improved with introduction of Cardizem by Dr. Malina Abreu. 3. Severe generalized anxiety disorder, treated with Xanax as needed. 4. Chronic migraine type headaches, treated with Topamax. 5. Obesity. The patient is working with Dietary. 6. Hiatal hernia with Jenise fundoplication. No complaints of heartburns. 7. Pollen allergies, treated with Singulair and loratadine. The patient going for bronchoscopy tomorrow by Dr. Hutchinson, her shift superintendent caustic cresylate. AIYANA MAGUIRE MD CM:PNTRANS 43 AIYANA MAGUIRE MD 12/13/17 0526 interface
--- NOTE | ~2017-12-11 | PR ---
[place], [place] PROGRESS NOTE [id number] UN[facility] #: [id number] ROOM: 401 DOCTOR: ROULA BAER MD BIRTHDATE: [birth year] DOS: 12/16/2017 SUBJECTIVE: The patient is doing about the same, does not have any new complaints. OBJECTIVE: VITAL SIGNS: Blood pressure is 118/66, pulse of 95, respirations 18, temperature 98.1. LUNGS: Clear. HEART: Regular. A few fine wheezes can be heard. ABDOMEN: Obese. EXTREMITIES: Without any edema. ASSESSMENT AND PLAN: The patient with acute exacerbation of bronchial asthma with negative bronch cultures. The plan is to discharge her to home today to be followed up as an outpatient. Her blood cultures and sputum cultures have all come back negative. Tachycardia, most likely from the breathing treatments. ROULA BAER MD CM:PNTRANS [id number] ROULA BAER MD 12/17/17 0018 interface
--- NOTE | ~2017-12-11 | EKG ---
[place], [place] ELECTROCARDIOGRAM REPORT NAME: GUANACO HAIR UNIT #: [id number] ROOM: 403 DOCTOR: DONTE DRAFT REPORT BIRTHDATE: [birth year] [facility] Test Date: 2017-12-11 Test Time: 10:02:20 Pat Name: GUANACO HAIR Department: Room: Gender: F Heel Seat Laster: : 1985 Requested By: HAILE BALDWIN Order Number: [id number] Reading MD: Stevie Sweet MD Measurements Intervals [place] Rate: 83 P: 23 LA: 175 QRS: 55 QRSD: 87 T: 34 QT: 357 QTc: 420 Interpretive Statements Sinus rhythm Low voltage, precordial leads Electronically Signed On 12-12-2017 9:39:45 PDT by Stevie Sweet MD CM:EKGRPT:ELECTROCARDIOGRAM REPORT 1002 [id number] HAILE BALDWIN EPIPHANY DRAFT REPORT HAILE BALDWIN
--- NOTE | ~2017-12-11 | PR ---
[place], [place] PROGRESS NOTE NAME: GUANACO HAIR UNIT #: [id number] ROOM: 401 DOCTOR: AIYANA MAGUIRE MD BIRTHDATE: [birth year] DOS: 12/13/2017 SUBJECTIVE: The patient is still complaining of shortness of breath and requesting some of her home medications restarted. OBJECTIVE: VITAL SIGNS: Blood pressure 104/66, heart rate 89 beats per minute, breathing 18 times per minute, temperature 98.7 degrees Fahrenheit. GENERAL APPEARANCE: The patient is alert and oriented x 3, in no visible distress except for obesity, decreased breath sounds, severe expiratory wheezing all over. HEENT AND NECK: Exam within normal limits. CARDIOVASCULAR SYSTEM: Heart rate is regular in rate and rhythm. S1 and S2 normally audible. LUNGS: Clear to auscultation. ABDOMEN: Soft, nontender. No obvious organomegaly. Bowel sounds are present. EXTREMITIES: Without significant cyanosis or edema. LABORATORY DATA: Blood cultures were negative. Sputum gram stain negative. Cultures growing normal miguel angel. IMPRESSION: 1. The patient with acute asthmatoid wheezing and shortness of breath, being treated with bronchodilators, oxygen, antibiotics and I will restart her Singulair and Claritin. 2. Acute exacerbation of chronic obstructive pulmonary disease, being treated as mentioned above. The patient went for bronchoscopy with Dr. Jasper turk and thick mucus secretions were removed from her large airways. 3. Chronic obesity. The patient working with dietary. 4. Allergic rhinitis with POLLEN allergies treated with Claritin, which has been restarted. 5. Tachycardia and palpitations related to respiratory failure, treated with Cardizem. Heart rate has improved. 6. Severe generalized anxiety disorder, treated with Xanax as needed. 7. Migraine type headaches controlled with Topamax. 8. Hiatal hernia with Jenise fundoplication without heartburns. [place], [place] PROGRESS NOTE NAME: SHELBIE AHIRVAUGHN Kaminski UNIT #: [id number] ROOM: 401 DOCTOR: AIYANA MAGUIRE MD BIRTHDATE: [birth year] AIYANA MAGUIRE MD CM:PNTRANS [id number] AIYANA MAGUIRE MD 01/04/18 0656 interface
--- NOTE | ~2017-12-11 | PR ---
[place], [place] PROGRESS NOTE NAME: GUANACO HAIR [facility] #: [id number] UNIT #: [id number] ROOM: 401 DOCTOR: MEHDI JEAN MDMIGUEL A BIRTHDATE: [birth year] DOS: 12/13/2017 PULMONARY PROGRESS NOTE SUBJECTIVE: The patient is noted comfortable at this time, resting on the bed. She has been still noted with wheezing, which has been noted increased in the last 24 hours. Cough has been noted moderate without any sputum expectoration. Denies symptoms of chest pain. The patient denies symptoms of hemoptysis. The patient was kept n.p.o. past midnight for bronchoscopy. She was continued on nebulized steroids and bronchodilators as well as other medical management. Denies any symptoms of diplopia. Complains of headache. Remaining systems were reviewed, they were noted all negative. OBJECTIVE: VITAL SIGNS: Showed normal temperature, respiratory rate of 18-20, heart rate 92, blood pressure 108/66. Pulse oxygen saturation of the patient on room air was 97% saturation. HEENT: Chronic moderate obesity. NECK: Supple. Head was atraumatic. CARDIOVASCULAR: S1, S2 audible. LUNGS: Diffuse expiratory wheezing in the lungs were noted bilaterally. There were no crackles. ABDOMEN: Soft. Moderate obesity. Bowel sounds present. EXTREMITIES: Without any acute edema. MUSCULOSKELETAL: The patient was noted without any acute deformities. VISIBLE SKIN: No lesions or rashes. LABORATORY DATA: Culture of the sputum from yesterday noted growth of normal miguel angel. There were no other labs done today. IMPRESSION: 1. The patient has been currently noted with persistent wheezing with acute exacerbation of bronchial asthma, refusal to use inhaled corticosteroids for medical management of bronchial asthma. Suspected mucus impaction in major airway as well. 2. Chronic obesity. 3. Obstructive sleep apnea disorder, not adherent with the treatment. 4. Past history of gastroesophageal reflux. 5. History of gastroparesis. 6. Chronic obesity. 7. Allergic rhinitis. PLAN OF MANAGEMENT: Proceed with fiberoptic bronchoscopy as planned. Risks and benefits already known by the patient. She is n.p.o. past midnight for bronchoscopy to be done today. No other change in treatment at this time. Any addition of treatment change of the patient if necessary will be done after the bronchoscopy. [place], [place] PROGRESS NOTE NAME: LAXMIGUANACO UNIT #: [id number] ROOM: [facility] DOCTOR: MIGUEL A MAYA MD BIRTHDATE: [birth year] MIGUEL A HARDING MD CM:PNMIREYA [id number] MIGUEL A JEAN MD 12/13/17 1103 interface
--- NOTE | ~2017-12-11 | DS ---
[place], [place] DISCHARGE SUMMARY [id number] #: [id number] ROOM: 401 DOCTOR: ROULA BAER MD BIRTHDATE: [birth year] DOS: 12/16/2017 HOSPITAL COURSE: A 32-year-old who comes in with complaints of difficulty breathing. Please see H and P dictated by Dr. Galloway for further details. The patient has had multiple hospitalizations this month with exacerbation of bronchial asthma. After admission, the patient has been managed by Dr. Galloway. Please refer to H and P and notes for further details. Dr. Hutchinson was consulted. The patient underwent a bronchoscopy. Bronch cultures are negative. The patient still has minimal bronchospasm, but Dr. Hutchinson feels that the patient is stable and can be discharged. DISCHARGE MEDICATIONS: Cipro 500 mg twice a day, Xanax and then continue her home medications. ROULA BAER MD CM:DISCHARG [id number] ROULA BAER MD 12/16/17 1605 interface
[~2017-12-11 09:47] MED LIST changes: +MUCINEX1200 M1 PO
[2017-12-11 10:13] LABS: BASO # 0.1 10*3/uL (0.0-0.1); BASO % 0.7 % (0.0-1.0); EOS # 0.4 10*3/uL (0.0-0.4); EOS % 5.8 % (1.0-4.0); HEMATOCRIT 40.9 % (37.0-47.0); HEMOGLOBIN 13.3 g/dl (12.0-16.0); LYMPH % 26.4 % (27.0-41.0); MEAN CELL VOLUME 85.9 fl (81.0-99.0); MEAN CORPUSCULAR HGB 27.9 pg (27.0-31.0); MEAN CORPUSCULAR HGB CONC 32.5 g/dl (33.0-37.0); MEAN PLATELET VOLUME 9.2 fl (9.6-12.3); MONO # 0.6 10*3/uL (0.1-1.0); MONO % 7.3 % (3.0-9.0); NEUT # 4.5 10*3/uL (2.3-7.9); NEUT % 59.5 % (47.0-73.0); PLATELET COUNT AUTOMATED 233 10*3/uL (130-400); RED BLOOD COUNT 4.76 10*6/uL (4.10-5.10); RED CELL DISTRI WIDTH 13.1 % (0-14.5); WHITE BLOOD COUNT 7.6 10*3/uL (4.8-10.8)
[2017-12-11 10:21] VITALS: BP 110/77
[2017-12-11 10:32] LABS: ALBUMIN 3.6 gm/dl (3.1-4.5); ALKALINE PHOSPHATASE 93 U/L (45-117); BUN 17 mg/dl (7-24); CHLORIDE 109 mmol/L (98-107); CREATININE 0.58 mg/dL (0.55-1.02); POTASSIUM 3.8 mmol/L (3.5-5.1); SGOT/AST 6 IU/L (3-35); SGPT/ALT 16 U/L (12-78); SODIUM 141 mmol/L (136-145); TOTAL PROTEIN 7.1 gm/dL (6.4-8.2)
[2017-12-11 10:36] LABS: TROPONIN I < 0.015 ng/ml (<0.045)
[2017-12-11 10:52] VITALS: BP 111/72
[2017-12-11 16:00] VITALS: BP 108/56
[2017-12-11 20:00] VITALS: BP 114/60
[2017-12-12 00:20] VITALS: BP 119/72
[2017-12-12 08:00] VITALS: BP 104/62
[2017-12-12 12:00] VITALS: BP 116/68
[2017-12-12 16:00] VITALS: BP 122/82
[2017-12-12 20:00] VITALS: BP 110/68
[2017-12-13] VITALS (8 sets, daily range): BP systolic 98–126; BP diastolic 51–82
[2017-12-14] VITALS: BP 122/85
[2017-12-14 08:00] VITALS: BP 109/57
[2017-12-14 12:00] VITALS: BP 103/54
[2017-12-14 15:07] LABS: ACID FAST SPEC PROCESSING Concentration (.)
[2017-12-14 16:00] VITALS: BP 124/80
[2017-12-14 20:00] VITALS: BP 116/56
[2017-12-14 20:20] VITALS: BP 116/56
[2017-12-15] VITALS: BP 107/66
[2017-12-15 12:00] VITALS: BP 122/79
[2017-12-15 16:00] VITALS: BP 125/81
[2017-12-15 20:00] VITALS: BP 122/87
[2017-12-16] VITALS: BP 118/66
[2017-12-16] MEDS ORDERED: CIPRO500 MG PO (07:20)
[2017-12-16 08:00] VITALS: BP 130/73
[2017-12-17 13:07] LABS: IGG SUBCLASS 1 446 mg/dL (248-810); IGG SUBCLASS 2 230 mg/dL (130-555); IGG SUBCLASS 3 43 mg/dL (15-102); IGG SUBCLASS 4 59 mg/dL (2-96); IMMUNOGLOBULIN G, QNT 747 mg/dL (700-1600)
[2017-12-19 05:07] LABS: IMMUNOGLOBULIN IgE 002170 102 IU/mL (0-100)
[2018-01-14] MEDS ORDERED: TRELEGY ELLIPT1 EACH INH (20:04)
[2018-01-18] MEDS ORDERED: DOXYCYCLINE100 MG PO (17:56)
[2018-01-18] MEDS ORDERED: MEDROL DOSEPAK4 MG PO (17:56)
== END 2017-12-16 08:56 | disposition home or self-care (01) | DRG 189 ==
LOC: ED 09:47 → EDHOLD 10:19 → 4E 10:19
PROVIDERS: Internal Medicine Critical Care Medicine; Nurse Practitioner Family
PROC: 0BC48ZZ Extirpation of Matter from Right Upper Lobe Bronchus, Via Natural or Artificial Opening Endoscopic (ICD-10-PCS; principal; 2017-12-13)
PROC: 0BC38ZZ Extirpation of Matter from Right Main Bronchus, Via Natural or Artificial Opening Endoscopic (ICD-10-PCS; principal; 2017-12-13)
PROC: 0BC78ZZ Extirpation of Matter from Left Main Bronchus, Via Natural or Artificial Opening Endoscopic (ICD-10-PCS; principal; 2017-12-13)
PROC: 0BC98ZZ Extirpation of Matter from Lingula Bronchus, Via Natural or Artificial Opening Endoscopic (ICD-10-PCS; principal; 2017-12-13)
PROC: 0BCB8ZZ Extirpation of Matter from Left Lower Lobe Bronchus, Via Natural or Artificial Opening Endoscopic (ICD-10-PCS; principal; 2017-12-13)
PROC: 0BC88ZZ Extirpation of Matter from Left Upper Lobe Bronchus, Via Natural or Artificial Opening Endoscopic (ICD-10-PCS; principal; 2017-12-13)
PROC: 0BC68ZZ Extirpation of Matter from Right Lower Lobe Bronchus, Via Natural or Artificial Opening Endoscopic (ICD-10-PCS; principal; 2017-12-13)
PROC: 0BC58ZZ Extirpation of Matter from Right Middle Lobe Bronchus, Via Natural or Artificial Opening Endoscopic (ICD-10-PCS; principal; 2017-12-13)
PROC: 0BC18ZZ Extirpation of Matter from Trachea, Via Natural or Artificial Opening Endoscopic (ICD-10-PCS; principal; 2017-12-13)
DX: J96.20 Acute and chronic respiratory failure, unspecified whether with hypoxia or hypercapnia (principal); J44.1 Chronic obstructive pulmonary disease with (acute) exacerbation; J45.51 Severe persistent asthma with (acute) exacerbation; K31.84 Gastroparesis; K21.9 Gastro-esophageal reflux disease without esophagitis; Z68.37 Body mass index [BMI] 37.0-37.9, adult; F41.9 Anxiety disorder, unspecified; E66.9 Obesity, unspecified; F41.1 Generalized anxiety disorder; G43.909 Migraine, unspecified, not intractable, without status migrainosus; J30.9 Allergic rhinitis, unspecified; R00.0 Tachycardia, unspecified; R00.2 Palpitations; K44.9 Diaphragmatic hernia without obstruction or gangrene; G47.33 Obstructive sleep apnea (adult) (pediatric); Z88.0 Allergy status to penicillin; Z88.2 Allergy status to sulfonamides; Z88.8 Allergy status to other drugs, medicaments and biological substances; Z91.018 Allergy to other foods; Z79.899 Other long term (current) drug therapy; Z90.710 Acquired absence of both cervix and uterus; Z90.89 Acquired absence of other organs; Z84.89 Family history of other specified conditions; Z80.1 Family history of malignant neoplasm of trachea, bronchus and lung

== ENCOUNTER 2018-05-16 12:29 | Inpatient (IN) | payer MEDICARE ==
[~2018-05-16] VITALS: Ht 172.7 cm; Wt 114.8 kg
--- NOTE | ~2018-05-16 | CON ---
[place], [place] REPORT OF CONSULTATION NAME: LAXMISHELBIEVAUGHN Kaminski UNIT #: [id number] ROOM: [facility] DOCTOR: MEHDI JEAN MDMIGUEL A BIRTHDATE: [birth year] DOS: 05/17/2018 PULMONARY CONSULTATION, EVALUATION, AND MANAGEMENT CONSULTATION REQUESTED BY: Ray Galloway M.D. REASON FOR CONSULTATION: For assessment of current abnormal respiratory symptoms, exacerbation of bronchial asthma, coughing, and wheezing. HISTORY OF PRESENT ILLNESS: This is a 32-year-old white female patient, who was admitted to the hospital on 05/16/2018. The patient has been admitted to the hospital as the patient has reported symptoms of having progressive increased chest congestion, coughing, wheezing, and difficulty breathing. The wheezing has been noted severe as well. The patient's cough has been noted only with a small amount of sputum expectoration at times. The patient denies any symptoms of chest pain, shortness of breath worsening significantly, occurring with minimal exertion. The patient has been admitted to the hospital under the care of Dr. Galloway. Currently, the patient admitted to the hospital and being treated for the acute exacerbation of bronchial asthma. The patient stated reduction in respiratory symptoms since yesterday. PAST MEDICAL HISTORY: 1. Uncomplicated ogwgajru-[id number]-cgrmpw bronchial asthma. 2. Allergic rhinitis. 3. Chronic obesity. 4. Type 2 diabetes mellitus. 5. Obstructive sleep apnea disorder, nonadherence with the treatment. 6. Intermittent atrial fibrillation. 7. Gastroparesis. 8. Type 2 diabetes mellitus. 9. Gastroesophageal reflux. 10. Allergic rhinitis. 11. Poor venous access. 12. Bacteremia related to MediPort, which was previously removed. PAST SURGICAL HISTORY: 1. MediPort insertion removal and reinsertion. 2. Therapeutic bronchoscopy. 3. Complete hysterectomy. 4. Bilateral ear tube insertion. 5. EGD. 6. Hiatal hernia repair with Jenise fundoplication. HOME MEDICATIONS: Noted as Breo Ellipta, Topamax, loratadine, Singulair, Daliresp, and DuoNebs. DRUG ALLERGIES: 1. SULFA DRUGS. 2. PENICILLIN. 3. DULERA. [place], [place] REPORT OF CONSULTATION NAME: GUANACO HAIR UNIT #: [id number] ROOM: [facility] DOCTOR: MEHDI JEAN MD,MIGUEL A BIRTHDATE: [birth year] 4. CLARITHROMYCIN. 5. PROPRANOLOL. 6. REGLAN. 7. SILICONE. SOCIAL HISTORY: The patient is , has 2 children, lives at home. She denies alcohol or illicit drug use. FAMILY HISTORY: Noted as mother living without any significant illnesses. History of father was unknown. REVIEW OF SYSTEMS: CONSTITUTIONAL SYMPTOMS: Fatigue and tiredness noted. Denies symptoms of fever or chills. EYES: Denies burning, redness, or tenderness. EARS, NOSE, AND THROAT SYMPTOMS: No sore throat, hoarseness, otalgia, postnasal drainage, or epistaxis. CARDIOVASCULAR SYSTEM: Denies anginal pain, edema, and pain of the lower extremities. GASTROINTESTINAL SYMPTOMS: Denies dysphagia, nausea, vomiting, diarrhea, abdominal pain, hematemesis, melena, or hematochezia. MUSCULOSKELETAL SYMPTOMS: No acute joint pain, redness, or tenderness. SKIN: No lesions or rashes. CENTRAL NERVOUS SYSTEM: The patient denies dizziness, diplopia, or syncopal episode. Remaining systems were reviewed and they were noted all negative. PHYSICAL EXAMINATION: GENERAL: This is a 32-year-old female currently noted awake and alert without any acute distress this morning of assessment. The patient's height recorded by the nursing staff on current admission with height of 5 feet 8 inches, weight of 253 pounds, and BMI of 38. VITAL SIGNS: Normal temperature, respiratory rate 20-18, heart rate of 79, and blood pressure of 117/76-112/87. HEENT: Head is atraumatic. Eyes, nonicterus. NECK: Supple. CARDIOVASCULAR: S1, S2 is audible. LUNGS: The patient was noted without any wheeze or crackles at the present time. ABDOMEN: Soft with chronic obesity. EXTREMITIES: The patient noted without any acute edema. MUSCULOSKELETAL EXAMINATION: The patient was noted without any acute deformities. CENTRAL NERVOUS SYSTEM: The patient's cranial nerves 2-12 intact. LABORATORY DATA: There were no labs done as yet on this admission. IMPRESSION: 1. The patient has been currently admitted to the hospital, noted with recurrence of acute exacerbation of bronchial asthma, most likely viral [place], [place] REPORT OF CONSULTATION NAME: GUANACO HAIR UNIT #: [id number] ROOM: [facility] DOCTOR: MEHDI JEAN MD,MIGUEL A BIRTHDATE: [birth year] syndrome, rule out bacterial infection. 2. The patient has history of allergic rhinitis. 3. Frequent hospitalization. 4. History of obstructive sleep apnea disorder, nonadherence with the treatment. 5. The patient with chronic moderate obesity as well. 6. History of type 2 diabetes mellitus. 7. History of chronic atrial fibrillation intermittently. PLAN OF MANAGEMENT: The patient has been ordered the routine labs as well as chest x-ray. The labs will be reviewed. The chest x-ray will be reviewed as well. She has been currently receiving the bronchodilator, the Mucinex, and Pulmicort Respules that will be continued. Monitor respiratory status closely. Sputum for Gram stain culture will be obtained as well. The respiratory virus panel was ordered as well including influenza A and B, nasal washings. Antibiotics, the patient remains on hold at this time unless the bacterial infection is proven. The patient does not take steroids because of side effects reported by the patient when she has IV Solu-Medrol. Inhaled corticosteroids will be continued. Thanks for allowing me to participate in the care of this patient. MIGUEL A HARDING MD CM:CONSTR:REPORT OF CONSULTATION 1307 05/18/18 0039 interface
--- NOTE | ~2018-05-16 | WRIGHTHP ---
[place], [place] PATIENT HISTORY AND PHYSICAL EXAM NAME: GUANACO HAIR [facility] #: [id number] UNIT #: [id number] ROOM: 517 DOCTOR: AIYANA MAGUIRE MD BIRTHDATE: [birth year] DOS: HISTORY OF PRESENT ILLNESS: The patient is a 32-year-old female with a past medical history of; 1. Chronic persistent moderate to severe asthma. 2. Chronic obstructive pulmonary disease. 3. Generalized anxiety disorder. 4. Obesity. 5. History of Jenise's fundoplication. 6. History of MediPort placement. 7. Type 2 diabetes mellitus, diet controlled. 8. Chronic migraine type headaches. 9. Chronic diastolic type congestive heart failure. The patient presented to my office yesterday with severe shortness of breath, wheezing, cough and sputum that started recently when she found more mold in her basement that the patient feels she is allergic to. The patient was sent to a monitored bed for admission at [facility] [place]. There were no chest pains or dizziness or fainting episodes. REVIEW OF SYSTEMS: RESPIRATORY: The patient has wheezing and cough and shortness of breath. GASTROINTESTINAL: No nausea, vomiting, diarrhea, or constipation. CARDIOVASCULAR: No chest pains or palpitations. FAMILY HISTORY: Noncontributory. SOCIAL HISTORY: Denies smoking cigarettes, alcohol or drug abuse. HOME MEDICATIONS: Singulair, loratadine, DuoNebs. ALLERGIES: Known allergies to PENICILLIN, SULFUR, DULERA, BIAXIN, PROPRANOLOL, METOCLOPRAMIDE, SILICONE, WALNUT TREE. PHYSICAL EXAMINATION: GENERAL: Alert, oriented x 3 with some respiratory difficulty, but in no visible distress. Obesity with a BMI of 38.4. VITAL SIGNS: Blood pressure 113/67, heart rate 86 beats per minute, afebrile, breathing 20 times per minute. HEENT AND NECK: Extraocular movements are intact. Sclerae are anicteric. Oral mucosa is moist and clean. No obvious facial weakness. Neck is supple without any lymphadenopathy. No thyromegaly. No JVD. No carotid arterial bruits. LUNGS: Showed decreased breath sounds and expiratory wheezing all over. CARDIOVASCULAR SYSTEM: Heart rate is regular in rate and rhythm. S1 and S2 normally audible. No significant murmur or any other abnormal cardiac sounds. ABDOMEN: Soft, nontender. No obvious organomegaly. Bowel sounds are present. No obvious herniation. EXTREMITIES: Without significant cyanosis or edema. Warm to touch. CENTRAL NERVOUS SYSTEM: Alert and oriented x 3. Cranial nerves II-XII are intact. Speech is normal. The patient is able to move all extremities. Normal [place], [place] PATIENT HISTORY AND PHYSICAL EXAM NAME: GUANACO HAIR UNIT #: [id number] ROOM: [facility] DOCTOR: AIYANA MAGUIRE MD BIRTHDATE: [birth year] muscle strength. Deep tendon reflexes are equal on both sides. Plantars were downgoing. IMPRESSION: 1. The patient with acute exacerbation of chronic obstructive pulmonary disease and acute over chronic respiratory failure, being treated with DuoNebs with Pulmicort, which is corticosteroids. The patient does not tolerate oral or injected corticosteroids and develops tachycardia according to her. The patient kept on oxygen and antibiotic and a Pulmonary consult obtained with Dr. Hutchinson. 2. Diet controlled type 2 diabetes mellitus. Blood sugars to be followed and treated. 3. Severe generalized anxiety disorder to be treated and controlled as necessary. 4. POLLEN allergies, treated and controlled with Claritin. 5. Chronic diastolic type congestive heart failure, compensated. ADDENDUM DISCHARGE DIAGNOSES: 1. Acute exacerbation of asthma. 2. Acute exacerbation of chronic obstructive pulmonary disease. 3. POLLEN allergies. 4. Chronic diastolic type congestive heart failure. 5. Severe generalized anxiety disorder. 6. Type 2 diabetes mellitus. 7. Chronic diastolic type congestive heart failure, chronic migraine type headaches. 8. History of MediPort placement. 9. History of Jenise fundoplication. 10. Obesity. The patient was admitted to [facility] [place] when she presented to my office with severe shortness of breath, wheezing and acute over chronic respiratory failure. The patient was diagnosed as having acute exacerbation of COPD and acute episode of asthma. The patient's symptoms have completely resolved very quickly with present treatment and she will be discharged to home on DuoNeb, Breo inhaler, Xanax, Mucinex, loratadine, Singulair and albuterol inhaler as needed. Followup with me in the office next week. [place], [place] PATIENT HISTORY AND PHYSICAL EXAM NAME: SHELBIE HAIRCloverCHARLOTTE Kaminski UNIT #: [id number] ROOM: [facility] DOCTOR: AIYANA MAGUIRE MD BIRTHDATE: [birth year] AIYANA MAGUIRE MD CM:HISPHYS:PATIENT HISTORY AND PHYSICAL EXAMINATION [id number] AIYANA MAGUIRE MD 05/17/18 0246 interface
[~2018-05-16 12:29] MED LIST changes: +TRELEGY ELLIPT1 EACH INH
[2018-05-16] MEDS ORDERED: PULMICORT0.5 MG/2 M INH (12:53)
[2018-05-16] MEDS ORDERED: MUCINEX1200 M1 PO (12:54)
[2018-05-16] MEDS ORDERED: BREO ELLIPTA 21 EACH INH (12:55)
[2018-05-16] MEDS ORDERED: Ipratropium Brom3 ML INH (12:57)
[2018-05-16] MEDS ORDERED: VENTOLIN 02.5 MG/3 M INH (12:58)
[2018-05-16 13:00] VITALS: BP 113/67
[2018-05-16 16:00] VITALS: BP 112/87
[2018-05-16 20:00] VITALS: BP 118/70
[2018-05-17] VITALS: BP 117/76
[2018-05-17 08:00] VITALS: BP 92/62
[2018-05-17 12:00] VITALS: BP 94/50
[2018-05-17 14:16] LABS: BASO # 0.1 10*3/uL (0.0-0.1); BASO % 0.6 % (0.0-1.0); EOS # 0.3 10*3/uL (0.0-0.4); HEMATOCRIT 41.8 % (37.0-47.0); HEMOGLOBIN 13.8 g/dl (12.0-16.0); LYMPH # 2.4 10*3/uL (1.3-4.4); LYMPH % 25.8 % (27.0-41.0); MEAN CELL VOLUME 86.2 fl (81.0-99.0); MEAN CORPUSCULAR HGB 28.5 pg (27.0-31.0); MEAN PLATELET VOLUME 9.1 fl (9.6-12.3); MONO # 0.4 10*3/uL (0.1-1.0); MONO % 4.3 % (3.0-9.0); NEUT # 6.1 10*3/uL (2.3-7.9); PLATELET COUNT AUTOMATED 256 10*3/uL (130-400); RED BLOOD COUNT 4.85 10*6/uL (4.10-5.10); RED CELL DISTRI WIDTH 13.1 % (0-14.5); WHITE BLOOD COUNT 9.3 10*3/uL (4.8-10.8)
[2018-05-17 14:17] LABS: ALBUMIN 3.4 gm/dl (3.1-4.5); ALKALINE PHOSPHATASE 104 U/L (45-117); BUN 14 mg/dl (7-24); CHLORIDE 107 mmol/L (98-107); CREATININE 0.63 mg/dL (0.55-1.02); POTASSIUM 3.9 mmol/L (3.5-5.1); SGOT/AST 9 IU/L (3-35); SGPT/ALT 13 U/L (12-78); SODIUM 139 mmol/L (136-145); TOTAL PROTEIN 7.2 gm/dL (6.4-8.2)
[2018-05-17 16:00] VITALS: BP 106/65
[2018-05-21 05:03] LABS: ADENOVIRUS Negative (Negative); INFLUENZA A Negative (Negative); INFLUENZA B Negative (Negative); METAPNEUMOVIRUS Negative (Negative); PARAINFLUENZA 1 Negative (Negative); PARAINFLUENZA 2 Negative (Negative); PARAINFLUENZA 3 Negative (Negative); RHINOVIRUS Negative (Negative); RSV A Negative (Negative); RSV B Negative (Negative)
== END 2018-05-17 19:04 | disposition home or self-care (01) | DRG 189 ==
LOC: 5E 12:29
PROVIDERS: Internal Medicine Critical Care Medicine
DX: J96.20 Acute and chronic respiratory failure, unspecified whether with hypoxia or hypercapnia (principal); J44.1 Chronic obstructive pulmonary disease with (acute) exacerbation; I50.32 Chronic diastolic (congestive) heart failure; J45.901 Unspecified asthma with (acute) exacerbation; G47.33 Obstructive sleep apnea (adult) (pediatric); K21.9 Gastro-esophageal reflux disease without esophagitis; E66.9 Obesity, unspecified; E11.9 Type 2 diabetes mellitus without complications; F41.1 Generalized anxiety disorder; I48.2 Chronic atrial fibrillation; G43.909 Migraine, unspecified, not intractable, without status migrainosus; Z91.048 Other nonmedicinal substance allergy status; Z88.0 Allergy status to penicillin; Z88.8 Allergy status to other drugs, medicaments and biological substances; Z90.710 Acquired absence of both cervix and uterus; Z88.2 Allergy status to sulfonamides; Z88.1 Allergy status to other antibiotic agents; Z68.38 Body mass index [BMI] 38.0-38.9, adult

== ENCOUNTER 2018-06-29 16:31 | Inpatient (IN) | payer MEDICARE ==
[~2018-06-29] VITALS: Ht 172.7 cm; Wt 115.2 kg
--- NOTE | ~2018-06-29 | PR ---
[place], [place] PROGRESS NOTE NAME: GUANACO HAIR [facility] #: [id number] UNIT #: [id number] ROOM: 521 DOCTOR: MEHDI JEAN MD,MIGUEL A BIRTHDATE: [birth year] DOS: 07/02/2018 PULMONARY PROGRESS NOTE SUBJECTIVE: She continued to show reduction of the symptoms of coughing, wheezing. There were no symptoms of chest pain or hemoptysis stated by the patient. She has been ambulating with decreased respiratory symptom reported in the last 24 hours. OBJECTIVE: VITAL SIGNS: The patient has normal temperature, respiratory rate 18, heart rate 77, blood pressure 101/70. The pulse oxygen saturation on room air 98% saturation. HEENT: No acute change. NECK: Supple. CARDIOVASCULAR: S1, S2 audible. LUNGS: The patient was noted with mild expiratory wheezing, no crackles. ABDOMEN: Soft, obese, nontender. EXTREMITIES: No acute edema. IMPRESSION: 1. Resolving acute bronchial asthma exacerbation, uncomplicated, persistent with eosinophilic type. 2. History of allergic rhinitis. 3. Chronic obesity. PLAN OF MANAGEMENT: Discharge planning for the patient per Dr. Malina Abreu. Outpatient assessment to be established in the office to discuss the potential use of the current medication biological agent for the medical and eosinophilic type uncomplicated severe bronchial asthma with recurrent hospitalization exacerbation. Continue other therapy, plan of management as in progress. MIGUEL A HARDING MD CM:PNTRANS [phone] MIGUEL A JEAN MD 07/03/18 0152 interface
--- NOTE | ~2018-06-29 | PR ---
[place], [place] PROGRESS NOTE NAME: GUANACO HAIR [facility] #: [id number] UNIT #: [id number] ROOM: 521 DOCTOR: ROULA BAER MD BIRTHDATE: [birth year] DOS: SUBJECTIVE: The patient feels good and is not having any complaints. OBJECTIVE: VITAL SIGNS: Blood pressure is 101/70, pulse of 103, respirations 19, temperature 97.4. LUNGS: Clear. HEART: Regular. ABDOMEN: Soft. EXTREMITIES: Without any edema. ASSESSMENT: 1. Acute exacerbation of chronic obstructive pulmonary disease, resolved. 2. Acute tracheobronchitis. Plan is to discharge to home today on p.o. antibiotics. Appreciate Dr. Hutchinson's consult. ROULA BAER MD CM:PNTRANS [phone] ROULA BAER MD 07/02/18 1207 interface
--- NOTE | ~2018-06-29 | PR ---
[place], [place] PROGRESS NOTE NAME: GUANACO HAIR [facility] #: [id number] UNIT #: [id number] ROOM: 521 DOCTOR: ROULA BAER MD BIRTHDATE: [birth year] DOS: SUBJECTIVE: The patient is about the same, does not have any new complaints. OBJECTIVE EXAMINATION: GENERAL: She is awake and alert and oriented, in no respiratory distress. VITAL SIGNS: Blood pressure is 128/74, pulse of 112, respirations 18, temperature 97.4. LUNGS: Diminished breath sounds, scattered wheezes bilaterally. HEART: Regular. ABDOMEN: Obese, soft. EXTREMITIES: Without any edema. ASSESSMENT AND PLAN: 1. Acute exacerbation of bronchial asthma/chronic obstructive pulmonary disease. Continue current treatment plan. Discussed with Dr. Hutchinson. 2. Atelectasis, already on doxycycline. Try to see whether she can tolerate IV steroids. ROULA BAER MD CM:PNTRANS [id number] ROULA BAER MD 07/01/18 1336 interface
--- NOTE | ~2018-06-29 | PR ---
[place], [place] PROGRESS NOTE NAME: GUANACO HAIR [facility] #: [id number] UNIT #: [id number] ROOM: 521 DOCTOR: MEHDI JEAN MD,MIGUEL A BIRTHDATE: [birth year] DOS: 07/01/2018 SUBJECTIVE: The patient was noted comfortable at this time, reduction in symptoms of wheezing was reported. The cough has been noted intermittently, [id number] shortness breath was also noted, partially decreased. She denies symptoms of chest pain. OBJECTIVE: VITAL SIGNS: Normal temperature, respiratory rate 20, heart rate 97, blood pressure 170/75 this afternoon. The pulse oxygen saturation on room air 98% saturation. HEENT: No acute change. NECK: Supple. CARDIOVASCULAR: S1, S2 audible. LUNGS: The patient was noted without any crackles. The expiratory wheezing noted, which was decreased from yesterday's examination. ABDOMEN: Soft, nontender. Bowel sounds present. EXTREMITIES: No new change. IMPRESSION: 1. The patient with acute exacerbation, uncomplicated, severe persistent bronchial asthma, eosinophilic type. 2. Chronic obesity. 3. Obstructive sleep apnea. 4. History of allergic rhinitis. PLAN OF TREATMENT: Continue current plan of care for the patient as in progress. No change in treatment needs to be made. Potential discharge him in the morning if the patient continue well with further improvement noted in the wheezing of the respiratory symptoms. MIGUEL A HARDING MD CM:PNTRANS [phone] MIGUEL A JEAN MD 07/01/18 1825 interface
--- NOTE | ~2018-06-29 | CON ---
[place], [place] REPORT OF CONSULTATION NAME: GUANACO HAIR [facility] #: [id number] UNIT #: [id number] ROOM: 521 DOCTOR: MIGUEL A MAYA MD BIRTHDATE: [birth year] DOS: 06/30/2018 PULMONARY CONSULTATION EVALUATION AND MANAGEMENT CONSULTATION REQUESTED BY: Dr. Galloway. REASON FOR CONSULTATION: Assess the patient for acute exacerbation of COPD. HISTORY OF PRESENT ILLNESS: A 32-year-old white female known to me with past history of uncomplicated severe persistent bronchial asthma, presented to the hospital. The patient admitted to the hospital on the date of 06/29/2018. She has been admitted to the hospital as she has been noted increased respiratory symptoms ongoing for the past few days. The symptoms have been noted with increased coughing and wheezing. The symptoms were noted significantly worsened in the last couple of days, started 3 weeks ago. She denies symptoms of fever or chills. Denies symptoms of hemoptysis. Denies symptoms of postnasal drainage, but noted with the nasal congestion. She has been noted with acute exacerbation of bronchial asthma, currently treated in the hospital for further medical management. From yesterday, the patient has been noted reduction of the respiratory symptom. The patient at this time with current medical management. The patient does not take corticosteroids in the form of intravenous and oral preparation and usually treated with bronchodilator and steroids in the form of nebulizer. REVIEW OF SYSTEMS: CONSTITUTIONAL: Fatigue and tiredness reported. No symptoms of fever or chills. EYES: Denies burning, redness, or tenderness. EARS, NOSE, THROAT SYMPTOMS: Denies sore throat, hoarseness, otalgia, postnasal drainage or epistaxis. CARDIOVASCULAR: Denies angina pain, edema, or pain in lower extremity. GASTROINTESTINAL: No dysphagia, nausea, vomiting, diarrhea, abdominal pain, hematemesis, melena, or hematochezia. SKIN: Denies abnormal lesions or rashes. MUSCULOSKELETAL: No acute joint pain, redness, or tenderness. SKIN: Denies abnormal lesions or rashes. CENTRAL NERVOUS SYSTEM: Without any dizziness, headache, diplopia, syncopal episode. Remaining systems were reviewed, they were noted all negative. PAST MEDICAL HISTORY: 1. Uncomplicated severe persistent bronchial asthma, frequent exacerbations with maximum medical therapy, currently noted as a phenotype of bronchial asthma in today's assessment with eosinophilia. 2. Allergic rhinitis. 3. Chronic moderate obesity. 4. Allergic rhinitis. 5. Type 2 diabetes mellitus. 6. Obstructive sleep apnea or nonadherence with the treatment. [place], [place] REPORT OF CONSULTATION NAME: GUANACO HAIR UNIT #: [id number] ROOM: 521 DOCTOR: MEHDI JEAN MD,MIGUEL A BIRTHDATE: [birth year] 7. Intermittent atrial fibrillation. 8. Gastroparesis. 9. Type 2 diabetes mellitus. 10. Gastroesophageal reflux. 11. Poor venous access. 12. Past bacteremia related to the MediPort, which was subsequently removed and reinsertion of the MediPort and removal because of bacteremia. 13. Therapeutic bronchoscopy. 14. Complete hysterectomy. 15. Bilateral ear tube insertion. 16. Hiatal hernia repair with fundoplication. SOCIAL HISTORY: The patient lives at home. Denies history of alcohol use or illicit drug use or tobacco use. FAMILY HISTORY: Mother was living without no medical illnesses. Father was unknown. HOME MEDICATIONS: Noted as Topamax, Breo Ellipta, Daliresp, DuoNeb, Singulair, loratadine and albuterol sulfate nebulized bronchodilator treatments as well. DRUG ALLERGIES: REPORTED: 1. PENICILLIN. 2. SULFA DRUG. 3. DULERA. 4. CLARITHROMYCIN 5. PROPRANOLOL. 6. REGLAN. 7. SILICONE. PHYSICAL EXAMINATION: GENERAL: A 32-year-old female patient currently sitting on the bed, without any acute distress. Height of 5 feet 8 inches, weight of 254 pounds, BMI 38. VITAL SIGNS: Normal temperature, respiratory rate 14-16, heart rate of 76-100, blood pressure 125/72-105/59. Pulse oxygen saturation was recorded as 98% saturation at rest on 3 L nasal cannula. HEENT: Examination shows head was atraumatic. Eye nonicterus. NECK: Supple. Decreased posterior pharyngeal space, high tongue base crowding of soft tissue structures. CARDIOVASCULAR: S1, S2 audible. LUNGS: Noted moderate decreased breath sounds, expiratory wheezing, no crackles. ABDOMEN: Soft and obese. EXTREMITIES: Without acute edema. VISIBLE SKIN: No lesions or rashes. CENTRAL NERVOUS SYSTEM: Nonfocal. MUSCULOSKELETAL: Without any acute deformities. Cranial nerves 2-12 intact. No focal deficit. LABORATORY DATA: BMP of the patient was noted as normal. CBC this morning, WBC [place], [place] REPORT OF CONSULTATION NAME: GUANACO HAIR UNIT #: [id number] ROOM: 521 DOCTOR: MEHDI JEAN MD,MIGUEL A BIRTHDATE: [birth year] count 7.9, hemoglobin 13.4, hematocrit 41.2, platelet count of 221, 5.8% eosinophils. The chest x-ray, which was done this morning reviewed and noted without any acute infiltration, linear atelectasis left mid lung. MediPort noted in place in the left chest. IMPRESSION: 1. The patient will be currently admitted to the hospital noted with eosinophilic phenotype bronchial asthma with acute recurrent exacerbation of severe bronchial asthma and acute allergic rhinitis. 2. Obstructive sleep apnea disorder. 3. Nonadherence with the treatment. 4. The patient with chronic moderate obesity as well and multiple other medical problems with frequent hospitalizations for the exacerbation of bronchial asthma maximal medical management. PLAN OF THERAPY: The patient will be assessed as an outpatient for the consideration of treatment for the medical management of the eosinophilic type asthma with medication such as Fasenra or similar medication for the long-term management to prevent the frequent exacerbation with severe uncontrolled bronchial asthma. At this time, continue with nebulized bronchodilators, antibiotics for this patient and the nebulizer treatment as previously ordered. Additional treatment changes will be made for this patient based on progression of the illness. Additional treatment changes will be made for this as well as in progress. Thank you for allowing me to participate in the care of this patient. MIGUEL A HARDING MD CM:CONSTR:REPORT OF CONSULTATION 1802 07/01/18 0540 interface
--- NOTE | ~2018-06-29 | WRIGHTHP ---
[place], [place] PATIENT HISTORY AND PHYSICAL EXAM NAME: GUANACO HAIR [facility] #: [id number] UNIT #: [id number] ROOM: 521 DOCTOR: AIYANA MAGUIRE MD BIRTHDATE: [birth year] DOS: 06/29/2018 HISTORY OF PRESENT ILLNESS: The patient is a 32-year-old female with a past medical history of: 1. Severe asthma, which is chronic, persistent and severe. 2. COPD. 3. Generalized anxiety disorder. 4. Obesity. 5. Jenise fundoplication. 6. History of MediPort placement. 7. Type 2 diabetes mellitus, diet controlled. 8. Chronic migraine type headaches. 9. Chronic diastolic type congestive heart failure. The patient presented to my office with increasing shortness of breath for about 3 weeks with wheezing and cough and chest congestion. The patient appeared to be in some respiratory discomfort, so she was immediately sent over to [facility] to a monitored bed for a direct admission and consult with sap business analyst, Dr. Hutchinson. No chest pain, no dizziness or fainting episodes. No other GI or urinary symptoms. SYSTEMS REVIEW: RESPIRATORY: Increasing shortness of breath and wheezing. GASTROINTESTINAL: No nausea, vomiting, diarrhea or constipation. CARDIOVASCULAR SYSTEM: No chest pains or palpitations. RESPIRATORY: Was actually shortness of breath, wheezing and cough. ALLERGIES: KNOWN ALLERGIES TO PENICILLIN, SULFUR, DULERA, BIAXIN, PROPRANOLOL, METOCLOPRAMIDE, SILICONE, WALNUT TREE. HOME MEDICATIONS: The patient takes DULERA, Singulair, loratadine, DuoNebs, Pulmicort, Xanax. PHYSICAL EXAMINATION: GENERAL: Alert, oriented x 3, in mild to moderate respiratory discomfort from shortness of breath. Obesity. VITAL SIGNS: Blood pressure 120/80, breathing 22 times per minute, heart rate of 100 beats per minute. HEENT AND NECK: Extraocular movements are intact. Sclerae are anicteric. Oral mucosa is moist and clean. No obvious facial weakness. Neck is supple without any lymphadenopathy. No thyromegaly. No JVD. No carotid arterial bruits. LUNGS: Clear to auscultation. Expiratory wheezing with decreased breath sounds all over. No rhonchi. CARDIOVASCULAR SYSTEM: Heart rate is regular in rate and rhythm. S1 and S2 normally audible. No significant murmur or any other abnormal cardiac sounds. ABDOMEN: Soft, nontender. No obvious organomegaly. Bowel sounds are present. No obvious herniation. EXTREMITIES: Without significant cyanosis or edema. Warm to touch. CENTRAL NERVOUS SYSTEM: Alert and oriented x 3. Cranial nerves II-XII are intact. Speech is normal. The patient is able to move all extremities. Normal [place], [place] PATIENT HISTORY AND PHYSICAL EXAM [facility]: [id number] UN[facility] #: [id number] ROOM: 521 DOCTOR: AIYANA MAGUIRE MD BIRTHDATE: [birth year] muscle strength. Deep tendon reflexes are equal on both sides. Plantars were downgoing. LABORATORY DATA: Labs ordered for tomorrow morning with a chest x-ray and CBC and basic metabolic profile. IMPRESSION: 1. Acute episode of exacerbation of significant underlying asthma, being treated with Pulmicort, DuoNebs, oxygen and the patient is unable to tolerate Solu-Medrol or any corticosteroids, other than inhaled once. Because of her many allergies, the patient refuses to take Solu-Medrol. 2. Acute exacerbation of chronic obstructive pulmonary disease with acute over chronic respiratory failure. Treated as above and I also added doxycycline antibiotic to her treatment intravenously. Dr. Hutchinson, the sap business analyst, has been consulted. 3. Type 2 diabetes mellitus, diet controlled. Blood sugars will be monitored and treated as necessary. 4. Chronic diastolic type congestive heart failure, compensated. 5. Obesity. The patient is to work with dietary. 6. Generalized anxiety disorder, treated with Xanax as needed, which is being continued. AIYANA MAGUIRE MD CM:HISPHYS:PATIENT HISTORY AND PHYSICAL EXAMINATION [phone] AIYANA MAGUIRE MD 06/29/182234 interface
--- NOTE | ~2018-06-29 | DS ---
[place], [place] DISCHARGE SUMMARY [id number] UNIT #: [id number] ROOM: 521 DOCTOR: ROULA BAER MD BIRTHDATE: [birth year] DOS: 07/02/2018 DIAGNOSES: 1. Acute exacerbation of bronchial asthma/chronic obstructive pulmonary disease. 2. Generalized anxiety disorder. 3. Allergy to STEROIDS. 4. Jenise fundoplication. 5. MediPort placement. 6. Type 2 diabetes mellitus. MEDICATIONS: Medications that she is on are the same as on this admission. Only new prescription given was doxycycline 100 b.i.d. HOSPITAL COURSE: This patient is 32 years old, was brought in to the hospital from Dr. Galloway's with complaints of shortness of breath. Please refer to H and P for details. After admission, the patient was started on IV doxycycline. Chest x-ray was unremarkable, and no other medications were ordered, continued on the Pulmicort and the breathing treatments. The patient has improved and her bronchospasm has resolved. The plan is to discharge her to home today to follow up as an outpatient with Dr. Galloway. Dr. Hutchinson did see the patient during the stay here. He may consider Xolair injection as an outpatient for the asthma. ROULA BAER MD CM:DISCHARG [phone] ROULA BAER MD 07/02/18 0939 interface
--- NOTE | ~2018-06-29 | PR ---
[place], [place] PROGRESS NOTE NAME: GUANACO HAIR [facility] #: [id number] UNIT #: [id number] ROOM: 521 DOCTOR: ROULA BAER MD BIRTHDATE: [birth year] DOS: 06/30/2018 SUBJECTIVE: The patient is resting comfortably in bed, does not have any new complaints. OBJECTIVE: VITAL SIGNS: Pressure is 117/82, pulse of 60, respirations 20, temperature 97.4. LUNGS: Diminished breath sounds. No wheezes, rales or rhonchi heard this morning. HEART: Regular. ABDOMEN: Obese. EXTREMITIES: Without any edema. ASSESSMENT AND PLAN: 1. Acute exacerbation of chronic obstructive pulmonary disease, improving. 2. Acute tracheobronchitis. Chest x-ray shows atelectasis. White cell count is normal. Plan to discharge if the patient remains stable tomorrow. ROULA BAER MD CM:PNTRANS [phone] ROULA BAER MD 07/01/18 0211 interface
[~2018-06-29 16:31] MED LIST changes: +Ipratropium Brom3 ML INH; +PULMICORT0.5 MG/2 M INH; +VENTOLIN 02.5 MG/3 M INH
[2018-06-29 17:00] VITALS: BP 125/73
--- NOTE | 2018-06-29 17:00 | NUR ---
A 32, admitted to 5E, under the services of Dr. ANDREZ TAFOYA,AIYANA Garcia with a diagnosis of COPD. Chief complaint is DYSPNEA X2 WKS, COUGH. Patient arrived via wheel chair from [place]. Monitor applied. Initial assessment completed. Vital signs taken and recorded. DR. ANDREZ TAFOYA,AIYANA Garcia notified of admission to the unit. Orders received. See assessment for past medical history, medications and allergies. Patient and/or family oriented to unit. [address] visitation policy reviewed. Clothing/patient valuable form completed. AMIRA MARIANO
--- NOTE | 2018-06-29 19:36 | NUR ---
DR HARDING CALLED. NOTIFIED OF CONSULT PER ORDER.
[2018-06-29 20:00] VITALS: BP 111/80
--- NOTE | 2018-06-29 22:00 | NUR ---
PATIENT MEDICATED WITH XANAX PER PRN ORDER AND PATIENT REQUEST FOR C/O ANXIETY. SEE EMAR. REINFORCED USE OF CALL LIGHT.
[2018-06-30] VITALS: BP 110/73
--- NOTE | 2018-06-30 02:24 | NUR ---
24 HR chart check completed.
[2018-06-30 07:44] LABS: BASO # 0.1 10*3/uL (0.0-0.1); BASO % 0.6 % (0.0-1.0); EOS # 0.5 10*3/uL (0.0-0.4); EOS % 5.8 % (1.0-4.0); HEMATOCRIT 41.2 % (37.0-47.0); HEMOGLOBIN 13.4 g/dl (12.0-16.0); LYMPH # 2.9 10*3/uL (1.3-4.4); LYMPH % 37.3 % (27.0-41.0); MEAN CELL VOLUME 88.4 fl (81.0-99.0); MEAN CORPUSCULAR HGB 28.8 pg (27.0-31.0); MEAN CORPUSCULAR HGB CONC 32.5 g/dl (33.0-37.0); MEAN PLATELET VOLUME 9.4 fl (9.6-12.3); MONO # 0.5 10*3/uL (0.1-1.0); MONO % 6.1 % (3.0-9.0); NEUT # 3.9 10*3/uL (2.3-7.9); NEUT % 50.1 % (47.0-73.0); PLATELET COUNT AUTOMATED 221 10*3/uL (130-400); RED BLOOD COUNT 4.66 10*6/uL (4.10-5.10); RED CELL DISTRI WIDTH 13.2 % (0-14.5); WHITE BLOOD COUNT 7.9 10*3/uL (4.8-10.8)
[2018-06-30 07:59] LABS: BUN 13 mg/dl (7-24); CHLORIDE 112 mmol/L (98-107); CREATININE 0.58 mg/dL (0.55-1.02); POTASSIUM 3.8 mmol/L (3.5-5.1); SODIUM 145 mmol/L (136-145)
[2018-06-30 08:00] VITALS: BP 102/72; BP 117/82
--- NOTE | 2018-06-30 08:41 | NUR ---
DR BAER ROUNDED AND SEEN PT. NO NEW ORDERS.
[2018-06-30 12:00] VITALS: BP 105/59
[2018-06-30 16:00] VITALS: BP 99/68
[2018-06-30 20:00] VITALS: BP 113/75
--- NOTE | 2018-06-30 20:00 | NUR ---
Patient resting quietly with no c/o discomfort. Respirations easy and regular. Vital signs stable. No overt distress. PT FEELS BETTER, UPDATED ON TEST RESULTS PER HER REQUEST. AMIRA MARIANO
[2018-07-01] VITALS: BP 128/74
--- NOTE | 2018-07-01 00:53 | NUR ---
Patient resting quietly with no c/o discomfort. Respirations easy and regular. Vital signs stable. No overt distress. AMIRA MARIANO
--- NOTE | 2018-07-01 03:13 | NUR ---
24 HR chart check completed.
--- NOTE | 2018-07-01 04:00 | NUR ---
Patient resting quietly with no c/o discomfort. Respirations easy and regular. Vital signs stable. No overt distress. AMIRA MARIANO
[2018-07-01 08:00] VITALS: BP 104/64
--- NOTE | 2018-07-01 08:36 | NUR ---
DR BAER ROUNDED AND SEEN PT. ORDER FOR FLUTTER VALVE RECIEVED.DR BAER DISCUSSED THE REFUSAL OF SOLUMEDROL WITH PT. PT STATES SHE HAS AN ADVERSE RXN TO SOLUMEDROL AND REFUSES TO TAKE IT.
[2018-07-01 12:00] VITALS: BP 117/75
[2018-07-01 16:00] VITALS: BP 112/78
[2018-07-01 20:00] VITALS: BP 120/80
[2018-07-02] VITALS: BP 101/70; BP 125/77
--- NOTE | 2018-07-02 04:25 | NUR ---
PT IS ASLEEP IN BED AT THIS TIME WITH NO S/S OF PAIN OR DISCOMFORT. SHE IS CURRENTLY NORMAL SINUS RYTHM ON THE MONITOR. RESPIRATIONS ARE EASY AND UNLABORED ON ROOM AIR. BED IS IN LOWEST POSITION AND CALL LIGHT IS WITHIN REACH. WILL CONTINUE TO MONITOR PT
[2018-07-02] MEDS ORDERED: DOXYCYCLINE100 M3 PO (08:34)
--- NOTE | 2018-07-02 09:00 | NUR ---
[employer]ensed [employer] in to talk to patient. Patient states lives at home with her 2 children. There are 20 steps in the home. Physician: Dr. Ray Galloway Pharmacy: [facility]: has had [facility] in the past but not currently Patient's level of ADLs: INDEPENDENT Patient has working utilities: yes DME: [employer] Follow-up physician's appointment after d/c: she prefers to make her own follow up appt after discharge Does patient want to access PORTAL?: no Discharge plan discussed with patient. She lives at home with her 2 children. She is independent in her ADLs and ambulation. Discussed home health care services and she denies any home needs at this time. She is supposed to have a c-pap at home but the one she had broke. She knows she has to do another sleep study in order to qualify for another one and she refuses. When medically stable she will be discharged to home. SWAPNIL INFNATE
--- NOTE | 2018-07-02 09:44 | NUR ---
PT RSTING IN BED NO DISTRESS NOTED. WILL MONITOR
--- NOTE | 2018-07-02 10:48 | NUR ---
Discharge instructions reviewed with patient/family. Patient receptive and verbalizes understanding. Follow-up care arranged. Written instructions given to patient/family. MARITZA KUMAR
[2018-08-08] MEDS ORDERED: FASENRA30 MG/1 ML SQ (22:59)
== END 2018-07-02 10:48 | disposition home or self-care (01) | DRG 189 ==
LOC: 5E 16:31
PROVIDERS: ADMIT Internal Medicine
DX: J96.20 Acute and chronic respiratory failure, unspecified whether with hypoxia or hypercapnia (principal); J44.1 Chronic obstructive pulmonary disease with (acute) exacerbation; J98.11 Atelectasis; I50.32 Chronic diastolic (congestive) heart failure; J45.51 Severe persistent asthma with (acute) exacerbation; J44.0 Chronic obstructive pulmonary disease with (acute) lower respiratory infection; F41.1 Generalized anxiety disorder; E66.01 Morbid (severe) obesity due to excess calories; J20.9 Acute bronchitis, unspecified; G47.33 Obstructive sleep apnea (adult) (pediatric); E11.9 Type 2 diabetes mellitus without complications; G43.909 Migraine, unspecified, not intractable, without status migrainosus; Z88.0 Allergy status to penicillin; Z88.2 Allergy status to sulfonamides; Z88.8 Allergy status to other drugs, medicaments and biological substances; Z91.048 Other nonmedicinal substance allergy status; Z88.1 Allergy status to other antibiotic agents; Z68.38 Body mass index [BMI] 38.0-38.9, adult

== ENCOUNTER → 2018-10-01 | Outpatient (CLI) | payer MEDICARE ==
[~2018-10-01] MED LIST changes: +FASENRA30 MG/1 ML SQ
--- NOTE | 2018-10-01 11:45 | NUR ---
PT HERE FOR MONTHLY MEDIPORT FLUSH ORDERED. [facility] [place] MEDIPORT ACCESSED WITH NONCORING NEEDLE WITHOUT DIFFCULTY. FLUSHED PER POLICY. NEEDLE REMOVED. DRESSING APPLIED. NO BLEEDING NOTED. KASHIF LARA RN
== END | disposition home or self-care (01) ==
LOC: MEDIPORT 11:00
DX: Z45.2 Encounter for adjustment and management of vascular access device (principal)

== ENCOUNTER 2019-01-04 13:02 | Emergency (ER) | payer MEDICARE ==
[~2019-01-04] VITALS: Ht 172.7 cm; Wt 113.4 kg
[2019-01-04 13:34] LABS: BASO % 0.3 % (0.0-1.0); HEMATOCRIT 41.5 % (37.0-47.0); HEMOGLOBIN 13.8 g/dl (12.0-16.0); LYMPH # 2.1 10*3/uL (1.3-4.4); LYMPH % 27.4 % (27.0-41.0); MEAN CELL VOLUME 89.2 fl (81.0-99.0); MEAN CORPUSCULAR HGB 29.7 pg (27.0-31.0); MEAN CORPUSCULAR HGB CONC 33.3 g/dl (33.0-37.0); MEAN PLATELET VOLUME 9.4 fl (9.6-12.3); MONO # 0.5 10*3/uL (0.1-1.0); MONO % 6.7 % (3.0-9.0); NEUT % 65.3 % (47.0-73.0); PLATELET COUNT AUTOMATED 200 10*3/uL (130-400); RED BLOOD COUNT 4.65 10*6/uL (4.10-5.10); RED CELL DISTRI WIDTH 12.4 % (0-14.5); WHITE BLOOD COUNT 7.6 10*3/uL (4.8-10.8)
[2019-01-04 13:51] LABS: ALBUMIN 3.5 gm/dl (3.1-4.5); ALKALINE PHOSPHATASE 93 U/L (45-117); BUN 11 mg/dl (7-24); CHLORIDE 111 mmol/L (98-107); SGOT/AST 7 IU/L (3-35); SGPT/ALT 17 U/L (12-78); SODIUM 141 mmol/L (136-145); TOTAL PROTEIN 6.8 gm/dL (6.4-8.2)
[2019-01-04] MEDS ORDERED: DOXYCYCLINE100 M3 PO (15:36)
== END 2019-01-04 15:39 | disposition home or self-care (01) ==
LOC: ED 13:02
PROVIDERS: Nurse Practitioner Family
DX: I88.9 Nonspecific lymphadenitis, unspecified (principal); J02.9 Acute pharyngitis, unspecified; J44.9 Chronic obstructive pulmonary disease, unspecified; K21.9 Gastro-esophageal reflux disease without esophagitis; I48.91 Unspecified atrial fibrillation; Z79.899 Other long term (current) drug therapy; Z88.0 Allergy status to penicillin; Z88.2 Allergy status to sulfonamides; Z88.8 Allergy status to other drugs, medicaments and biological substances; Z88.1 Allergy status to other antibiotic agents

== ENCOUNTER → 2019-03-08 | Outpatient (CLI) | payer MEDICARE ==
--- NOTE | 2019-03-08 08:53 | NUR ---
PATIENT PRESENTS TO OUTPATIENT FOR MEDIPORT FLUSH. PATIENT TOLERATED WELL. PROMPT ACCESS WITH NONCORING NEEDLE. UNDER STERILE CONDITIONS. TOLERATED WELL
== END | disposition home or self-care (01) ==
LOC: MEDIPORT 00:44
DX: Z45.2 Encounter for adjustment and management of vascular access device (principal)

== ENCOUNTER → 2019-05-09 | Outpatient (CLI) | payer MEDICARE, OTHER ==
[~2019-05-09] MED LIST changes: +ADDERALL15 MG PO
--- NOTE | 2019-05-09 10:44 | NUR ---
MEDIPORT LEFT CHEST ACCESSED AND FLUSHED PER ORDER VIA STERILE PROCEDURE AND PER POLICY PT TOLERATED WELL
== END | disposition home or self-care (01) ==
LOC: MEDIPORT 00:51
DX: Z45.2 Encounter for adjustment and management of vascular access device (principal)

== ENCOUNTER → 2019-05-28 | Outpatient (CLI) | payer MEDICARE, OTHER | END | disposition home or self-care (01) | LOC: CT 09:44 | DX: K62.89 Other specified diseases of anus and rectum (principal); R10.9 Unspecified abdominal pain ==

== ENCOUNTER → 2019-06-05 | Day surgery (SDC) | payer MEDICARE, OTHER ==
[~2019-06-05] VITALS: Ht 172.7 cm; Wt 113.4 kg
[2019-06-05 11:06] VITALS: BP 115/85
[2019-06-05 12:14] VITALS: BP 101/62
[2019-06-05 12:30] VITALS: BP 96/62
[2019-06-05 12:44] VITALS: BP 108/64
== END | disposition home or self-care (01) ==
LOC: SDC 05-31 14:45
DX: K62.5 Hemorrhage of anus and rectum (principal); I48.91 Unspecified atrial fibrillation; K21.9 Gastro-esophageal reflux disease without esophagitis; J44.9 Chronic obstructive pulmonary disease, unspecified; F32.9 Major depressive disorder, single episode, unspecified; F41.9 Anxiety disorder, unspecified; G47.30 Sleep apnea, unspecified; Z88.0 Allergy status to penicillin; Z88.8 Allergy status to other drugs, medicaments and biological substances; Z98.890 Other specified postprocedural states; Z79.899 Other long term (current) drug therapy

== ENCOUNTER → 2019-07-12 | Outpatient (CLI) | payer MEDICARE, OTHER ==
--- NOTE | 2019-07-12 11:58 | NUR ---
PT HERE FOR MEDIPORT FLUSH ORDERED. SITE ACESSED WITH NONCORING NEEDLE. SLUGGISH BLOOD RETURN. FLUSH WITH MEDIPORT PER POLICY. TOLERATED WELL. NEEDLE REMOVE. DRESSING APPLIED. KASHIF LARA RN
== END | disposition home or self-care (01) ==
LOC: MEDIPORT 00:16
DX: Z45.2 Encounter for adjustment and management of vascular access device (principal)

== ENCOUNTER → 2019-09-13 | Outpatient (CLI) | payer MEDICARE, OTHER ==
--- NOTE | 2019-09-13 10:18 | NUR ---
PT'S PORT ACCESSED. POSTIVE BLOOD RETURN. SALINE 10 ML FLUSED, AND HEPERIN 500 UNITS FLUSHED INTO MEDIPORT. PT TOLERATED PROCEEDURE. PT RESCHEDULED FOR September. PT AGREES TO NEXT SCHEDULED DATE.
== END | disposition home or self-care (01) ==
LOC: MEDIPORT 00:16
DX: Z45.2 Encounter for adjustment and management of vascular access device (principal); I99.8 Other disorder of circulatory system

== ENCOUNTER → 2019-12-02 | Outpatient (CLI) | payer MEDICARE, OTHER ==
--- NOTE | 2019-12-02 09:37 | NUR ---
PT HERE FOR MEDIPORT FLUSH ORDERED. SITE ACCESSED WITH NONCORING NEEDLE WITHOUT DIFFCULTY. FLUSHES EASILY. HEPARIN GIVEN ORDERED. NEEDLE REMOVED. DRESSING APPLIED. NO BLEEDING OR HEMATOMA NOTED. KASHIF LARA RN
== END | disposition home or self-care (01) ==
LOC: MEDIPORT 09:25
DX: Z45.2 Encounter for adjustment and management of vascular access device (principal); I99.8 Other disorder of circulatory system

== ENCOUNTER 2020-01-31 12:44 | Emergency (ER) | payer MEDICARE, OTHER ==
[2020-01-31 14:09] LABS: ALBUMIN 3.3 gm/dl (3.1-4.5); ALKALINE PHOSPHATASE 105 U/L (45-117); BUN 17 mg/dl (7-24); CHLORIDE 107 mmol/L (98-107); CREATININE 0.66 mg/dL (0.55-1.02); POTASSIUM 4.1 mmol/L (3.5-5.1); SGOT/AST 10 IU/L (3-35); SGPT/ALT 19 U/L (12-78); SODIUM 137 mmol/L (136-145); TOTAL PROTEIN 7.2 gm/dL (6.4-8.2)
[2020-01-31 14:11] LABS: ACT PARTIAL THROMBO TIME 22.8 SECONDS (20.0-32.1); INTERNATIONAL NORM RATIO 0.9 (2.0-3.5); TROPONIN I < 0.015 ng/ml (<0.045)
[2020-01-31 14:28] LABS: BASO % 0.2 % (0.0-1.0); HEMATOCRIT 43.6 % (37.0-47.0); LYMPH # 1.9 10*3/uL (1.3-4.4); LYMPH % 22.4 % (27.0-41.0); MEAN CORPUSCULAR HGB 28.8 pg (27.0-31.0); MEAN CORPUSCULAR HGB CONC 33.5 g/dl (33.0-37.0); MEAN PLATELET VOLUME 8.9 fl (9.6-12.3); MONO # 0.5 10*3/uL (0.1-1.0); MONO % 5.6 % (3.0-9.0); NEUT # 6.1 10*3/uL (2.3-7.9); NEUT % 71.3 % (47.0-73.0); PLATELET COUNT AUTOMATED 248 10*3/uL (130-400); RED BLOOD COUNT 5.07 10*6/uL (4.10-5.10); RED CELL DISTRI WIDTH 12.5 % (0-14.5); WHITE BLOOD COUNT 8.5 10*3/uL (4.8-10.8)
== END 2020-01-31 19:41 | disposition home or self-care (01) ==
LOC: ED 12:44
PROVIDERS: Internal Medicine
DX: R07.9 Chest pain, unspecified (principal); J45.909 Unspecified asthma, uncomplicated; F41.9 Anxiety disorder, unspecified; F32.9 Major depressive disorder, single episode, unspecified; K21.9 Gastro-esophageal reflux disease without esophagitis; J44.9 Chronic obstructive pulmonary disease, unspecified; I48.91 Unspecified atrial fibrillation; Z79.899 Other long term (current) drug therapy; Z90.710 Acquired absence of both cervix and uterus

== ENCOUNTER 2020-02-02 10:44 | Emergency (ER) | payer MEDICARE, OTHER ==
[~2020-02-02] VITALS: Ht 172.7 cm; Wt 113.4 kg
[2020-02-02] MEDS ORDERED: TYLENOL325 M1 PO (12:04)
[2020-02-02] MEDS ORDERED: NAPROXEN250 MG PO (12:04)
== END 2020-02-02 15:45 | disposition home or self-care (01) ==
LOC: ED 10:44
DX: S92.151A Displaced avulsion fracture (chip fracture) of right talus, initial encounter for closed fracture (principal); S93.401A Sprain of unspecified ligament of right ankle, initial encounter; I50.9 Heart failure, unspecified; K21.9 Gastro-esophageal reflux disease without esophagitis; J45.909 Unspecified asthma, uncomplicated; F41.9 Anxiety disorder, unspecified; F32.9 Major depressive disorder, single episode, unspecified; J44.9 Chronic obstructive pulmonary disease, unspecified; I48.91 Unspecified atrial fibrillation; Z87.891 Personal history of nicotine dependence; Z88.8 Allergy status to other drugs, medicaments and biological substances; Z88.0 Allergy status to penicillin; Z88.2 Allergy status to sulfonamides; Z79.899 Other long term (current) drug therapy; Z90.710 Acquired absence of both cervix and uterus; X58.XXXA Exposure to other specified factors, initial encounter; Y93.89 Activity, other specified; Y92.89 Other specified places as the place of occurrence of the external cause; Y99.8 Other external cause status

== ENCOUNTER → 2020-02-19 | Outpatient (CLI) | payer MEDICARE, OTHER ==
[~2020-02-19] MED LIST changes: +NAPROXEN250 MG PO; +TYLENOL325 M1 PO
--- NOTE | 2020-02-19 09:17 | NUR ---
MEDIPORT ACCESSED WITH NON-CORING NEEDLE AFTER CLEANSING WITH CHLORAPREP. PROMPT BLOOD RETURN OBTAINED. FLUSHED PER POLICY AND NON-CORING NEEDLE WITHDRAWN INTACT. BANDAID TO SITE.
== END | disposition home or self-care (01) ==
LOC: MEDIPORT 08:53
PROVIDERS: ATTEND Internal Medicine Critical Care Medicine
DX: Z45.2 Encounter for adjustment and management of vascular access device (principal); I99.8 Other disorder of circulatory system

== ENCOUNTER → 2020-04-15 | Outpatient (CLI) | payer MEDICARE, OTHER ==
--- NOTE | 2020-04-15 11:36 | NUR ---
1131- MEDIPORT ACCESSED WITH NON-CORING NEEDLE AFTER CLEANSING WITH CHLORAPREP. PROMPT BLOOD RETURN OBTAINED AND FLUSHED PER POLICY. NON-CORING REMOVED INTACT AND BANDAID TO SITE. DISCHARGED AMBULATORY.
== END | disposition home or self-care (01) ==
LOC: MEDIPORT 10:30
PROVIDERS: ATTEND Internal Medicine Critical Care Medicine
DX: Z45.2 Encounter for adjustment and management of vascular access device (principal); I99.8 Other disorder of circulatory system

== ENCOUNTER 2020-05-02 16:36 | Emergency (ER) | payer MEDICARE, OTHER ==
[~2020-05-02] VITALS: Ht 172.7 cm; Wt 113.4 kg
[2020-05-02 17:12] LABS: BASO % 0.3 % (0.0-1.0); LYMPH % 28.2 % (27.0-41.0); MEAN CELL VOLUME 87.9 fl (81.0-99.0); MEAN CORPUSCULAR HGB 28.1 pg (27.0-31.0); MEAN PLATELET VOLUME 9.1 fl (9.6-12.3); MONO # 0.7 10*3/uL (0.1-1.0); MONO % 6.8 % (3.0-9.0); NEUT # 6.7 10*3/uL (2.3-7.9); NEUT % 64.3 % (47.0-73.0); PLATELET COUNT AUTOMATED 267 10*3/uL (130-400); RED BLOOD COUNT 5.12 10*6/uL (4.10-5.10); RED CELL DISTRI WIDTH 12.8 % (0-14.5); WHITE BLOOD COUNT 10.5 10*3/uL (4.8-10.8)
[2020-05-02 17:28] LABS: ALBUMIN 3.5 gm/dl (3.1-4.5); ALKALINE PHOSPHATASE 96 U/L (45-117); BUN 18 mg/dl (7-24); CHLORIDE 110 mmol/L (98-107); POTASSIUM 4.1 mmol/L (3.5-5.1); SGOT/AST 15 IU/L (3-35); SGPT/ALT 25 U/L (12-78); SODIUM 141 mmol/L (136-145); TOTAL PROTEIN 7.3 gm/dL (6.4-8.2)
== END 2020-05-02 18:53 | disposition home or self-care (01) ==
LOC: ED 16:36
PROVIDERS: Student in an Organized Health Care Education/Training Program
DX: J45.901 Unspecified asthma with (acute) exacerbation (principal); R09.1 Pleurisy; Z88.0 Allergy status to penicillin; Z88.2 Allergy status to sulfonamides; Z91.018 Allergy to other foods; Z88.1 Allergy status to other antibiotic agents; Z88.8 Allergy status to other drugs, medicaments and biological substances; Z79.899 Other long term (current) drug therapy

== ENCOUNTER → 2020-06-23 | Outpatient (CLI) | payer MEDICARE, OTHER | END | disposition home or self-care (01) | LOC: MEDIPORT 13:00 | PROVIDERS: ATTEND Internal Medicine Critical Care Medicine | DX: Z45.2 Encounter for adjustment and management of vascular access device (principal); I99.8 Other disorder of circulatory system ==

== ENCOUNTER → 2020-07-21 | Outpatient (CLI) | payer MEDICARE, OTHER | END | disposition home or self-care (01) | LOC: MEDIPORT 10:00 | PROVIDERS: ATTEND Internal Medicine Critical Care Medicine | DX: Z45.2 Encounter for adjustment and management of vascular access device (principal); I99.8 Other disorder of circulatory system ==

== ENCOUNTER 2020-09-21 12:13 | Emergency (ER) | payer MEDICARE, OTHER ==
[~2020-09-21] VITALS: Ht 175.2 cm; Wt 122.5 kg
[2020-09-21 13:32] LABS: BASO % 0.2 % (0.0-1.0); HEMATOCRIT 46.9 % (37.0-47.0); LYMPH # 2.4 10*3/uL (1.3-4.4); LYMPH % 23.7 % (27.0-41.0); MEAN CELL VOLUME 88.5 fl (81.0-99.0); MEAN CORPUSCULAR HGB 28.5 pg (27.0-31.0); MEAN CORPUSCULAR HGB CONC 32.2 g/dl (33.0-37.0); MEAN PLATELET VOLUME 9.5 fl (9.6-12.3); MONO # 0.6 10*3/uL (0.1-1.0); MONO % 5.7 % (3.0-9.0); NEUT # 7.1 10*3/uL (2.3-7.9); NEUT % 70.1 % (47.0-73.0); PLATELET COUNT AUTOMATED 246 10*3/uL (130-400); WHITE BLOOD COUNT 10.2 10*3/uL (4.8-10.8)
[2020-09-21 13:46] LABS: ALBUMIN 3.5 gm/dl (3.1-4.5); ALKALINE PHOSPHATASE 101 U/L (45-117); BUN 18 mg/dl (7-24); CHLORIDE 109 mmol/L (98-107); CREATININE 0.64 mg/dL (0.55-1.02); POTASSIUM 4.1 mmol/L (3.5-5.1); SGOT/AST 8 IU/L (3-35); SGPT/ALT 20 U/L (12-78); SODIUM 141 mmol/L (136-145); TOTAL PROTEIN 7.2 gm/dL (6.4-8.2)
[2020-09-21] MEDS ORDERED: ZITHROMAX250 MG PO (15:27)
== END 2020-09-21 16:12 | disposition home or self-care (01) ==
LOC: ED 12:13
PROVIDERS: Physician Assistant
DX: J45.901 Unspecified asthma with (acute) exacerbation (principal); Z20.822 Contact with and (suspected) exposure to COVID-19; Z90.710 Acquired absence of both cervix and uterus; Z98.890 Other specified postprocedural states; Z79.899 Other long term (current) drug therapy; Z88.0 Allergy status to penicillin; Z88.2 Allergy status to sulfonamides; Z88.1 Allergy status to other antibiotic agents

== ENCOUNTER → 2020-11-04 | Outpatient (CLI) | payer MEDICARE, OTHER | END | disposition home or self-care (01) | LOC: MEDIPORT 09:41 | PROVIDERS: ATTEND Internal Medicine Critical Care Medicine | DX: Z45.2 Encounter for adjustment and management of vascular access device (principal); I99.8 Other disorder of circulatory system; G47.33 Obstructive sleep apnea (adult) (pediatric); J30.2 Other seasonal allergic rhinitis; J45.50 Severe persistent asthma, uncomplicated; Z91.19 Patient's noncompliance with other medical treatment and regimen ==

== ENCOUNTER → 2021-01-20 | Outpatient (CLI) | payer MEDICARE, OTHER ==
[~2021-01-20] MED LIST changes: +AVPAK AZITHROM250 M1 PO
== END | disposition home or self-care (01) ==
LOC: MEDIPORT 10:30
PROVIDERS: ATTEND Internal Medicine Critical Care Medicine
DX: Z45.2 Encounter for adjustment and management of vascular access device (principal); G47.33 Obstructive sleep apnea (adult) (pediatric); J30.2 Other seasonal allergic rhinitis; J45.50 Severe persistent asthma, uncomplicated; Z91.19 Patient's noncompliance with other medical treatment and regimen; Z68.36 Body mass index [BMI] 36.0-36.9, adult

== ENCOUNTER 2021-01-26 08:05 | Emergency (ER) | payer MEDICARE, OTHER ==
[~2021-01-26] VITALS: Ht 162.5 cm; Wt 90.7 kg
[~2021-01-26 08:05] MED LIST changes: -AVPAK AZITHROM250 M1 PO
[2021-01-26] MEDS ORDERED: AVPAK AZITHROM250 M1 PO (10:17)
== END 2021-01-26 10:37 | disposition home or self-care (01) ==
LOC: ED 08:05
DX: J02.0 Streptococcal pharyngitis (principal); Z88.0 Allergy status to penicillin; Z88.2 Allergy status to sulfonamides; Z91.018 Allergy to other foods; Z88.8 Allergy status to other drugs, medicaments and biological substances; Z88.1 Allergy status to other antibiotic agents; Z79.2 Long term (current) use of antibiotics; Z79.899 Other long term (current) drug therapy; Z90.711 Acquired absence of uterus with remaining cervical stump; Z96.22 Myringotomy tube(s) status; Z90.89 Acquired absence of other organs

== ENCOUNTER 2021-04-30 19:07 | Emergency (ER) | payer MEDICARE, OTHER ==
[~2021-04-30] VITALS: Ht 175.2 cm; Wt 113.4 kg
[~2021-04-30 19:07] MED LIST changes: +AVPAK AZITHROM250 M1 PO
[2021-04-30 19:27] LABS: BASO % 0.3 % (0.0-1.0); HEMATOCRIT 46.8 % (37.0-47.0); LYMPH # 4.1 10*3/uL (1.3-4.4); LYMPH % 30.6 % (27.0-41.0); MEAN CELL VOLUME 88.8 fl (81.0-99.0); MEAN CORPUSCULAR HGB 28.3 pg (27.0-31.0); MEAN CORPUSCULAR HGB CONC 31.8 g/dl (33.0-37.0); MEAN PLATELET VOLUME 9.3 fl (9.6-12.3); MONO # 0.7 10*3/uL (0.1-1.0); MONO % 5.4 % (3.0-9.0); NEUT # 8.5 10*3/uL (2.3-7.9); NEUT % 63.4 % (47.0-73.0); PLATELET COUNT AUTOMATED 260 10*3/uL (130-400); RED BLOOD COUNT 5.27 10*6/uL (4.10-5.10); RED CELL DISTRI WIDTH 12.8 % (0-14.5); WHITE BLOOD COUNT 13.4 10*3/uL (4.8-10.8)
[2021-04-30 19:37] LABS: ACT PARTIAL THROMBO TIME 31.1 SECONDS (20.0-32.1)
[2021-04-30 19:41] LABS: ALBUMIN 3.6 gm/dl (3.1-4.5); ALKALINE PHOSPHATASE 97 U/L (45-117); BUN 20 mg/dl (7-24); CHLORIDE 107 mmol/L (98-107); CREATININE 0.87 mg/dL (0.55-1.02); POTASSIUM 3.8 mmol/L (3.5-5.1); SGOT/AST 12 IU/L (3-35); SGPT/ALT 27 U/L (12-78); SODIUM 137 mmol/L (136-145); TOTAL PROTEIN 7.8 gm/dL (6.4-8.2)
== END 2021-04-30 23:30 | disposition home or self-care (01) ==
LOC: ED 19:07
PROVIDERS: Internal Medicine
DX: D72.829 Elevated white blood cell count, unspecified (principal); R00.2 Palpitations; R07.9 Chest pain, unspecified

== ENCOUNTER → 2021-05-19 | Outpatient (CLI) | payer MEDICARE, OTHER | END | disposition home or self-care (01) | LOC: MEDIPORT 08:22 | PROVIDERS: ATTEND Internal Medicine Critical Care Medicine | DX: Z45.2 Encounter for adjustment and management of vascular access device (principal); I99.8 Other disorder of circulatory system ==

== ENCOUNTER → 2021-08-19 | Outpatient (CLI) | payer MEDICARE, OTHER | END | disposition home or self-care (01) | LOC: MEDIPORT 10:00 | PROVIDERS: ATTEND Internal Medicine Critical Care Medicine | DX: Z45.2 Encounter for adjustment and management of vascular access device (principal); I99.8 Other disorder of circulatory system; J30.2 Other seasonal allergic rhinitis; J45.50 Severe persistent asthma, uncomplicated; G47.33 Obstructive sleep apnea (adult) (pediatric); Z88.0 Allergy status to penicillin; Z88.1 Allergy status to other antibiotic agents; Z68.36 Body mass index [BMI] 36.0-36.9, adult; Z91.19 Patient's noncompliance with other medical treatment and regimen ==

== ENCOUNTER → 2021-09-20 | Outpatient (CLI) | payer MEDICARE, OTHER | END | disposition home or self-care (01) | LOC: MEDIPORT 09-17 11:00 | PROVIDERS: ATTEND Internal Medicine Critical Care Medicine | DX: Z45.2 Encounter for adjustment and management of vascular access device (principal); I99.8 Other disorder of circulatory system; G47.33 Obstructive sleep apnea (adult) (pediatric); J30.2 Other seasonal allergic rhinitis; J45.50 Severe persistent asthma, uncomplicated; Z91.19 Patient's noncompliance with other medical treatment and regimen; Z68.38 Body mass index [BMI] 38.0-38.9, adult ==

== ENCOUNTER → 2021-10-22 | Outpatient (CLI) | payer MEDICARE, OTHER | END | disposition home or self-care (01) | LOC: MEDIPORT 10:39 | PROVIDERS: ATTEND Internal Medicine Critical Care Medicine | DX: Z45.2 Encounter for adjustment and management of vascular access device (principal); I99.8 Other disorder of circulatory system; G47.33 Obstructive sleep apnea (adult) (pediatric); J30.2 Other seasonal allergic rhinitis; J45.50 Severe persistent asthma, uncomplicated; Z91.19 Patient's noncompliance with other medical treatment and regimen; Z68.38 Body mass index [BMI] 38.0-38.9, adult ==

== ENCOUNTER → 2021-12-23 | Outpatient (CLI) | payer MEDICARE, OTHER ==
[2021-12-23 12:28] LABS: BASO % 0.2 % (0.0-1.0); HEMATOCRIT 44.1 % (37.0-47.0); LYMPH # 2.8 10*3/uL (1.3-4.4); LYMPH % 28.9 % (27.0-41.0); MEAN CELL VOLUME 83.7 fl (81.0-99.0); MEAN CORPUSCULAR HGB 26.9 pg (27.0-31.0); MEAN CORPUSCULAR HGB CONC 32.2 g/dl (33.0-37.0); MEAN PLATELET VOLUME 9.4 fl (9.6-12.3); MONO # 0.5 10*3/uL (0.1-1.0); MONO % 4.9 % (3.0-9.0); NEUT # 6.3 10*3/uL (2.3-7.9); NEUT % 65.8 % (47.0-73.0); PLATELET COUNT AUTOMATED 274 10*3/uL (130-400); RED BLOOD COUNT 5.27 10*6/uL (4.10-5.10); RED CELL DISTRI WIDTH 14.5 % (0-14.5); WHITE BLOOD COUNT 9.6 10*3/uL (4.8-10.8)
[2021-12-23 12:48] LABS: CHLORIDE 112 mmol/L (98-107); POTASSIUM 3.7 mmol/L (3.5-5.1); SODIUM 139 mmol/L (136-145)
[2021-12-23 13:00] LABS: ALKALINE PHOSPHATASE 99 U/L (45-117); BUN 12 mg/dl (7-24); CHOLESTEROL 158 mg/dL (<200); CREATININE 0.61 mg/dL (0.55-1.02); FREE T4 1.11 ng/dl (0.76-1.46); LDL CHOLESTEROL 97 mg/dL (9-159); SGOT/AST 11 IU/L (3-35); SGPT/ALT 16 U/L (12-78); T3 UPTAKE 35 % (31-39); THYROID STIM HORMONE (HS) 0.848 uIU/ml (0.358-4.75); TOTAL PROTEIN 7.2 gm/dL (6.4-8.2); TRIGLYCERIDES 109 mg/dl (<150)
[2021-12-23 13:25] LABS: VITAMIN D, 25-HYDROXY 22.2 ng/mL (30-100)
== END | disposition home or self-care (01) ==
LOC: MEDIPORT 11:00 → LAB 11:06
PROVIDERS: Internal Medicine; ATTEND Internal Medicine Critical Care Medicine
DX: G47.33 Obstructive sleep apnea (adult) (pediatric) (principal); J30.2 Other seasonal allergic rhinitis; J45.20 Mild intermittent asthma, uncomplicated; Z91.19 Patient's noncompliance with other medical treatment and regimen; Z68.38 Body mass index [BMI] 38.0-38.9, adult; I10 Essential (primary) hypertension; E11.40 Type 2 diabetes mellitus with diabetic neuropathy, unspecified; Z23 Encounter for immunization; Z13.89 Encounter for screening for other disorder; Z13.29 Encounter for screening for other suspected endocrine disorder; Z13.1 Encounter for screening for diabetes mellitus; E55.9 Vitamin D deficiency, unspecified; Z13.0 Encounter for screening for diseases of the blood and blood-forming organs and certain disorders involving the immune mechanism; Z13.21 Encounter for screening for nutritional disorder; Z13.220 Encounter for screening for lipoid disorders; Z13.228 Encounter for screening for other metabolic disorders; Z13.6 Encounter for screening for cardiovascular disorders; Z13.9 Encounter for screening, unspecified

== ENCOUNTER → 2022-02-17 | Outpatient (CLI) | payer MEDICARE, OTHER | END | disposition home or self-care (01) | LOC: MEDIPORT 09:52 | PROVIDERS: ATTEND Internal Medicine Critical Care Medicine | DX: Z45.2 Encounter for adjustment and management of vascular access device (principal); I99.8 Other disorder of circulatory system; G47.33 Obstructive sleep apnea (adult) (pediatric); J30.2 Other seasonal allergic rhinitis; J45.50 Severe persistent asthma, uncomplicated; Z91.19 Patient's noncompliance with other medical treatment and regimen; Z68.38 Body mass index [BMI] 38.0-38.9, adult ==

== ENCOUNTER → 2022-03-25 | Outpatient (CLI) | payer MEDICARE, OTHER | END | disposition home or self-care (01) | LOC: MEDIPORT 11:00 | PROVIDERS: ATTEND Internal Medicine Critical Care Medicine | DX: Z45.2 Encounter for adjustment and management of vascular access device (principal); I99.8 Other disorder of circulatory system; G47.33 Obstructive sleep apnea (adult) (pediatric); J30.2 Other seasonal allergic rhinitis; J45.50 Severe persistent asthma, uncomplicated; Z68.38 Body mass index [BMI] 38.0-38.9, adult; Z91.199 Patient's noncompliance with other medical treatment and regimen due to unspecified reason ==

== ENCOUNTER 2022-04-01 13:42 | Emergency (ER) | payer MEDICARE, OTHER ==
[~2022-04-01] VITALS: Wt 109.8 kg
[2022-04-01 14:56] LABS: BASO % 0.1 % (0.0-1.0); HEMATOCRIT 45.3 % (37.0-47.0); LYMPH # 2.5 10*3/uL (1.3-4.4); LYMPH % 29.3 % (27.0-41.0); MEAN CELL VOLUME 85.3 fl (81.0-99.0); MEAN CORPUSCULAR HGB 27.5 pg (27.0-31.0); MEAN CORPUSCULAR HGB CONC 32.2 g/dl (33.0-37.0); MEAN PLATELET VOLUME 9.5 fl (9.6-12.3); MONO # 0.4 10*3/uL (0.1-1.0); MONO % 4.9 % (3.0-9.0); NEUT # 5.7 10*3/uL (2.3-7.9); NEUT % 65.4 % (47.0-73.0); PLATELET COUNT AUTOMATED 241 10*3/uL (130-400); RED BLOOD COUNT 5.31 10*6/uL (4.10-5.10); RED CELL DISTRI WIDTH 13.9 % (0-14.5); WHITE BLOOD COUNT 8.6 10*3/uL (4.8-10.8)
[2022-04-01 15:08] LABS: ACT PARTIAL THROMBO TIME 27.2 SECONDS (20.0-32.1); INTERNATIONAL NORM RATIO 0.9 (2.0-3.5)
[2022-04-01 15:19] LABS: BUN 16 mg/dl (7-24); CHLORIDE 112 mmol/L (98-107); CREATININE 0.84 mg/dL (0.55-1.02); POTASSIUM 3.4 mmol/L (3.5-5.1); SODIUM 143 mmol/L (136-145)
[2022-04-01 15:20] LABS: ALKALINE PHOSPHATASE 97 U/L (45-117); LIPASE 123 U/L (73-393); SGOT/AST 9 IU/L (3-35); SGPT/ALT 17 U/L (12-78); TOTAL PROTEIN 7.4 gm/dL (6.4-8.2)
== END 2022-04-01 16:54 | disposition home or self-care (01) ==
LOC: ED 13:42
PROVIDERS: Emergency Medicine
DX: J45.901 Unspecified asthma with (acute) exacerbation (principal); Z88.0 Allergy status to penicillin; Z88.2 Allergy status to sulfonamides; Z88.8 Allergy status to other drugs, medicaments and biological substances; Z79.899 Other long term (current) drug therapy; Z90.710 Acquired absence of both cervix and uterus; Z90.89 Acquired absence of other organs; Z98.890 Other specified postprocedural states

== ENCOUNTER 2022-04-22 11:36 | Emergency (ER) | payer MEDICARE, OTHER | END 2022-04-22 11:37 | disposition left against medical advice (07) | LOC: ED 11:36 | DX: Z53.21 Procedure and treatment not carried out due to patient leaving prior to being seen by health care provider (principal) ==

== ENCOUNTER 2022-06-24 18:59 | Emergency (ER) | payer MEDICARE, OTHER ==
[~2022-06-24 18:59] MED LIST changes: +ADDERALL 20 MG20 MG PO; +CETIRIZINE10 MG PO; +MUCINEX D ER 11 EACH PO; +Ondansetron4 MG PO; +VENT7GM INH
[2022-06-24 20:04] LABS: BASO % 0.2 % (0.0-1.0); HEMATOCRIT 40.1 % (37.0-47.0); LYMPH # 2.6 10*3/uL (1.3-4.4); LYMPH % 23.8 % (27.0-41.0); MEAN CELL VOLUME 82.7 fl (81.0-99.0); MEAN CORPUSCULAR HGB 26.8 pg (27.0-31.0); MEAN CORPUSCULAR HGB CONC 32.4 g/dl (33.0-37.0); MEAN PLATELET VOLUME 9.2 fl (9.6-12.3); MONO # 0.7 10*3/uL (0.1-1.0); MONO % 6.2 % (3.0-9.0); NEUT # 7.7 10*3/uL (2.3-7.9); NEUT % 69.6 % (47.0-73.0); PLATELET COUNT AUTOMATED 239 10*3/uL (130-400); RED BLOOD COUNT 4.85 10*6/uL (4.10-5.10); RED CELL DISTRI WIDTH 13.6 % (0-14.5)
[2022-06-24 20:21] LABS: ALKALINE PHOSPHATASE 91 U/L (46-116); BUN 16 mg/dl (9-23); CHLORIDE 104 mmol/L (98-107); POTASSIUM 3.7 mmol/L (3.4-5.1); SGPT/ALT 12 U/L (10-49); TOTAL PROTEIN 6.9 gm/dL (6.0-8.0)
[2022-06-24] MEDS ORDERED: VIBRAMYCIN100 MG PO (21:23)
[2022-06-24] MEDS ORDERED: HYDROCODONE-AC1 EAC1 PO (21:24)
== END 2022-06-24 21:48 | disposition home or self-care (01) ==
LOC: ED 18:59
PROVIDERS: Physician Assistant
DX: L02.415 Cutaneous abscess of right lower limb (principal); Z88.0 Allergy status to penicillin; Z88.2 Allergy status to sulfonamides; Z91.018 Allergy to other foods; Z88.8 Allergy status to other drugs, medicaments and biological substances; Z90.710 Acquired absence of both cervix and uterus; Z90.89 Acquired absence of other organs; Z98.890 Other specified postprocedural states

== ENCOUNTER 2022-06-27 12:23 | Emergency (ER) | payer MEDICARE, OTHER ==
[~2022-06-27] VITALS: Wt 108.9 kg
[~2022-06-27 12:23] MED LIST changes: +HYDROCODONE-AC1 EAC1 PO
[2022-06-27 13:16] LABS: BASO % 0.3 % (0.0-1.0); HEMATOCRIT 42.6 % (37.0-47.0); LYMPH # 1.9 10*3/uL (1.3-4.4); LYMPH % 27.1 % (27.0-41.0); MEAN CORPUSCULAR HGB 26.4 pg (27.0-31.0); MEAN CORPUSCULAR HGB CONC 31.5 g/dl (33.0-37.0); MEAN PLATELET VOLUME 9.4 fl (9.6-12.3); MONO # 0.4 10*3/uL (0.1-1.0); MONO % 6.3 % (3.0-9.0); NEUT # 4.6 10*3/uL (2.3-7.9); PLATELET COUNT AUTOMATED 246 10*3/uL (130-400); RED BLOOD COUNT 5.07 10*6/uL (4.10-5.10); RED CELL DISTRI WIDTH 13.3 % (0-14.5); WHITE BLOOD COUNT 6.9 10*3/uL (4.8-10.8)
[2022-06-27 13:31] LABS: ALKALINE PHOSPHATASE 88 U/L (46-116); BUN 12 mg/dl (9-23); CHLORIDE 104 mmol/L (98-107); POTASSIUM 3.7 mmol/L (3.4-5.1); SGPT/ALT 10 U/L (10-49); TOTAL PROTEIN 7.4 gm/dL (6.0-8.0)
[2022-06-27] MEDS ORDERED: PROBIOTIC250 MG PO (15:26)
== END 2022-06-27 16:04 | disposition home or self-care (01) ==
LOC: ED 12:23
PROVIDERS: Nurse Practitioner Family
DX: L02.214 Cutaneous abscess of groin (principal); Z88.0 Allergy status to penicillin; Z88.1 Allergy status to other antibiotic agents; Z91.018 Allergy to other foods; Z88.8 Allergy status to other drugs, medicaments and biological substances; Z90.710 Acquired absence of both cervix and uterus; Z98.890 Other specified postprocedural states; Z90.89 Acquired absence of other organs

== ENCOUNTER 2022-07-22 14:21 | Inpatient (IN) | payer MEDICARE, OTHER ==
[~2022-07-22] VITALS: Ht 152.4 cm; Wt 111.0 kg
[~2022-07-22 14:21] MED LIST changes: +PROBIOTIC250 MG PO
[2022-07-22 15:05] VITALS: BP 117/92
[2022-07-22 17:29] LABS: BASO % 0.2 % (0.0-1.0); HEMATOCRIT 44.7 % (37.0-47.0); LYMPH # 2.8 10*3/uL (1.3-4.4); LYMPH % 28.1 % (27.0-41.0); MEAN CELL VOLUME 83.9 fl (81.0-99.0); MEAN CORPUSCULAR HGB 26.1 pg (27.0-31.0); MEAN CORPUSCULAR HGB CONC 31.1 g/dl (33.0-37.0); MEAN PLATELET VOLUME 9.3 fl (9.6-12.3); MONO # 0.5 10*3/uL (0.1-1.0); MONO % 5.1 % (3.0-9.0); NEUT # 6.6 10*3/uL (2.3-7.9); NEUT % 66.2 % (47.0-73.0); PLATELET COUNT AUTOMATED 328 10*3/uL (130-400); RED BLOOD COUNT 5.33 10*6/uL (4.10-5.10); RED CELL DISTRI WIDTH 13.9 % (0-14.5); WHITE BLOOD COUNT 9.9 10*3/uL (4.8-10.8)
[2022-07-22 17:42] LABS: ACT PARTIAL THROMBO TIME 28.8 SECONDS (20.0-32.1)
[2022-07-22 17:49] LABS: ALKALINE PHOSPHATASE 103 U/L (46-116); BUN 17 mg/dl (9-23); CHLORIDE 107 mmol/L (98-107); LIPASE 36 U/L (12-53); POTASSIUM 4.4 mmol/L (3.4-5.1); SGPT/ALT 10 U/L (10-49); TOTAL PROTEIN 7.8 gm/dL (6.0-8.0)
[2022-07-22 21:00] VITALS: BP 124/94
[2022-07-23] VITALS: BP 95/61
[2022-07-23 06:43] LABS: BASO % 0.1 % (0.0-1.0); HEMATOCRIT 38.4 % (37.0-47.0); LYMPH # 2.7 10*3/uL (1.3-4.4); MEAN CELL VOLUME 84.8 fl (81.0-99.0); MEAN CORPUSCULAR HGB 26.5 pg (27.0-31.0); MEAN CORPUSCULAR HGB CONC 31.3 g/dl (33.0-37.0); MEAN PLATELET VOLUME 9.1 fl (9.6-12.3); MONO # 0.6 10*3/uL (0.1-1.0); MONO % 7.5 % (3.0-9.0); NEUT # 5.1 10*3/uL (2.3-7.9); NEUT % 60.2 % (47.0-73.0); PLATELET COUNT AUTOMATED 258 10*3/uL (130-400); RED BLOOD COUNT 4.53 10*6/uL (4.10-5.10); RED CELL DISTRI WIDTH 13.8 % (0-14.5); WHITE BLOOD COUNT 8.5 10*3/uL (4.8-10.8)
[2022-07-23 07:00] LABS: BUN 12 mg/dl (9-23); CHLORIDE 109 mmol/L (98-107); POTASSIUM 3.9 mmol/L (3.4-5.1)
[2022-07-23 08:00] VITALS: BP 119/72
[2022-07-23 12:00] VITALS: BP 124/84
[2022-07-23 16:00] VITALS: BP 139/89
[2022-07-23 16:12] LABS: BILIRUBIN Negative (Negative); BLOOD Negative (Negative); CLARITY Clear (Clear); COLOR Yellow (Yellow); GLUCOSE Negative (Negative); KETONE Negative (Negative); LEUKO ESTERASE Trace (Negative); NITRITE Negative (Negative); SPECIFIC GRAVITY <= 1.005 (1.001-1.030); UROBILINOGEN 0.2 E.U./dl (0.0-1.0)
[2022-07-23 16:30] LABS: BACTERIA 3+; EPITHELIAL CELLS 21-30
[2022-07-23 20:00] VITALS: BP 101/65
[2022-07-24] VITALS: BP 129/85
[2022-07-24 08:00] VITALS: BP 99/55
[2022-07-24 12:00] VITALS: BP 113/65
[2022-07-24] MEDS ORDERED: HYDROXYZINE HCL25 MG PO (14:05)
[2022-07-24] MEDS ORDERED: Phenergan25 MG PO (14:05)
== END 2022-07-24 15:05 | disposition home or self-care (01) | DRG 74 ==
LOC: ED 14:21 → EDHOLD 18:51 → 4E 20:29
PROVIDERS: Emergency Medicine; ADMIT Internal Medicine; ATTEND Internal Medicine
DX: E11.43 Type 2 diabetes mellitus with diabetic autonomic (poly)neuropathy (principal); I50.32 Chronic diastolic (congestive) heart failure; Z68.42 Body mass index [BMI] 45.0-49.9, adult; E86.0 Dehydration; K31.84 Gastroparesis; F41.1 Generalized anxiety disorder; J44.9 Chronic obstructive pulmonary disease, unspecified; G43.909 Migraine, unspecified, not intractable, without status migrainosus; E66.9 Obesity, unspecified; E66.01 Morbid (severe) obesity due to excess calories; F98.8 Other specified behavioral and emotional disorders with onset usually occurring in childhood and adolescence; K21.00 Gastro-esophageal reflux disease with esophagitis, without bleeding; Z88.5 Allergy status to narcotic agent; Z88.0 Allergy status to penicillin; Z88.2 Allergy status to sulfonamides; Z88.8 Allergy status to other drugs, medicaments and biological substances; Z91.018 Allergy to other foods; Z90.710 Acquired absence of both cervix and uterus; Z90.89 Acquired absence of other organs; Z79.899 Other long term (current) drug therapy; K58.9 Irritable bowel syndrome, unspecified; J45.50 Severe persistent asthma, uncomplicated; F90.9 Attention-deficit hyperactivity disorder, unspecified type

== ENCOUNTER → 2022-09-13 | Outpatient (CLI) | payer MEDICARE, OTHER ==
[~2022-09-13] MED LIST changes: +HYDROXYZINE HCL25 MG PO
== END | disposition home or self-care (01) ==
LOC: MEDIPORT 01:00
PROVIDERS: ATTEND Internal Medicine Critical Care Medicine
DX: Z45.2 Encounter for adjustment and management of vascular access device (principal); I99.8 Other disorder of circulatory system; G47.33 Obstructive sleep apnea (adult) (pediatric); J30.2 Other seasonal allergic rhinitis; J45.50 Severe persistent asthma, uncomplicated; Z68.38 Body mass index [BMI] 38.0-38.9, adult; Z91.190 Patient's noncompliance with other medical treatment and regimen due to financial hardship

== ENCOUNTER → 2022-12-02 | Outpatient (CLI) | payer MEDICARE, OTHER | END | disposition home or self-care (01) | LOC: MEDIPORT 10:30 | PROVIDERS: ATTEND Internal Medicine | DX: Z45.2 Encounter for adjustment and management of vascular access device (principal) ==

== ENCOUNTER → 2023-01-06 | Outpatient (CLI) | payer MEDICARE, OTHER | END | disposition home or self-care (01) | LOC: MEDIPORT 11:00 | PROVIDERS: ATTEND Internal Medicine | DX: Z45.2 Encounter for adjustment and management of vascular access device (principal) ==

== ENCOUNTER 2023-01-21 19:43 | Emergency (ER) | payer MEDICARE, OTHER ==
[~2023-01-21] VITALS: Ht 172.7 cm; Wt 115.7 kg
[2023-01-21 20:25] LABS: BASO % 0.1 % (0.0-1.0); LYMPH # 3.3 10*3/uL (1.3-4.4); LYMPH % 29.9 % (27.0-41.0); MEAN CELL VOLUME 78.6 fl (81.0-99.0); MEAN CORPUSCULAR HGB 24.8 pg (27.0-31.0); MEAN CORPUSCULAR HGB CONC 31.5 g/dl (33.0-37.0); MONO # 0.7 10*3/uL (0.1-1.0); MONO % 6.2 % (3.0-9.0); NEUT # 6.9 10*3/uL (2.3-7.9); NEUT % 63.4 % (47.0-73.0); PLATELET COUNT AUTOMATED 301 10*3/uL (130-400); RED BLOOD COUNT 4.96 10*6/uL (4.10-5.10); RED CELL DISTRI WIDTH 15.9 % (0-14.5); WHITE BLOOD COUNT 10.9 10*3/uL (4.8-10.8)
[2023-01-21 20:47] LABS: ACT PARTIAL THROMBO TIME 28.3 SECONDS (20.0-32.1); ALKALINE PHOSPHATASE 97 U/L (46-116); BUN 13 mg/dl (9-23); CHLORIDE 112 mmol/L (98-107); LIPASE 34 U/L (12-53); POTASSIUM 3.7 mmol/L (3.4-5.1); SGPT/ALT 12 U/L (10-49); TOTAL PROTEIN 7.1 gm/dL (6.0-8.0)
[2023-01-21] MEDS ORDERED: VIBRAMYCIN100 MG PO (22:09)
[2023-01-21] MEDS ORDERED: TRAMADOL HCL50 MG PO (22:09)
[2023-01-21] MEDS ORDERED: CYCLOBENZAPRINE5 M3 PO (22:17)
== END 2023-01-21 22:30 | disposition home or self-care (01) ==
LOC: ED 19:43
PROVIDERS: Internal Medicine
DX: S13.9XXA Sprain of joints and ligaments of unspecified parts of neck, initial encounter (principal); H66.91 Otitis media, unspecified, right ear; F41.9 Anxiety disorder, unspecified; F32.A Depression, unspecified; K21.9 Gastro-esophageal reflux disease without esophagitis; J44.9 Chronic obstructive pulmonary disease, unspecified; I48.91 Unspecified atrial fibrillation; Z88.0 Allergy status to penicillin; Z88.2 Allergy status to sulfonamides; Z91.018 Allergy to other foods; Z88.8 Allergy status to other drugs, medicaments and biological substances; Z90.710 Acquired absence of both cervix and uterus; Z90.89 Acquired absence of other organs; Z98.890 Other specified postprocedural states; W54.1XXA Struck by dog, initial encounter; Y93.89 Activity, other specified; Y92.009 Unspecified place in unspecified non-institutional (private) residence as the place of occurrence of the external cause; Y99.8 Other external cause status

== ENCOUNTER → 2023-03-08 | Outpatient (CLI) | payer MEDICARE, OTHER ==
[~2023-03-08] MED LIST changes: +CYCLOBENZAPRINE5 M3 PO
== END | disposition home or self-care (01) ==
LOC: CT 15:13
PROVIDERS: ATTEND Specialist
DX: R59.0 Localized enlarged lymph nodes (principal)

== ENCOUNTER → 2023-03-22 | Outpatient (CLI) | payer MEDICARE, OTHER | END | disposition home or self-care (01) | LOC: MEDIPORT 11:00 | PROVIDERS: ATTEND Internal Medicine | DX: Z45.2 Encounter for adjustment and management of vascular access device (principal) ==

== ENCOUNTER 2023-04-02 10:32 | Emergency (ER) | payer MEDICARE, OTHER ==
[~2023-04-02] VITALS: Ht 170.1 cm; Wt 117.9 kg
[2023-04-02 11:22] LABS: HEMATOCRIT 39.3 % (37.0-47.0); LYMPH # 1.9 10*3/uL (1.3-4.4); LYMPH % 28.5 % (27.0-41.0); MEAN CELL VOLUME 78.8 fl (81.0-99.0); MEAN CORPUSCULAR HGB 24.4 pg (27.0-31.0); MEAN PLATELET VOLUME 8.9 fl (9.6-12.3); MONO # 0.4 10*3/uL (0.1-1.0); MONO % 6.3 % (3.0-9.0); NEUT # 4.3 10*3/uL (2.3-7.9); PLATELET COUNT AUTOMATED 276 10*3/uL (130-400); RED BLOOD COUNT 4.99 10*6/uL (4.10-5.10); RED CELL DISTRI WIDTH 16.3 % (0-14.5); WHITE BLOOD COUNT 6.6 10*3/uL (4.8-10.8)
[2023-04-02 11:44] LABS: ALKALINE PHOSPHATASE 94 U/L (46-116); BUN 13 mg/dl (9-23); CHLORIDE 111 mmol/L (98-107); POTASSIUM 3.9 mmol/L (3.4-5.1); SGPT/ALT 9 U/L (5-49); TOTAL PROTEIN 6.9 gm/dL (6.0-8.0)
[2023-04-02] MEDS ORDERED: AVPAK AZITHROM250 M1 PO (12:05)
== END 2023-04-02 12:08 | disposition home or self-care (01) ==
LOC: ED 10:32
PROVIDERS: Emergency Medicine
DX: J44.9 Chronic obstructive pulmonary disease, unspecified (principal); F41.9 Anxiety disorder, unspecified; F32.A Depression, unspecified; K21.9 Gastro-esophageal reflux disease without esophagitis; Z88.0 Allergy status to penicillin; Z88.2 Allergy status to sulfonamides; Z91.018 Allergy to other foods; Z88.8 Allergy status to other drugs, medicaments and biological substances; Z90.710 Acquired absence of both cervix and uterus; Z90.89 Acquired absence of other organs; Z98.890 Other specified postprocedural states; F17.290 Nicotine dependence, other tobacco product, uncomplicated

== ENCOUNTER → 2023-04-11 | Outpatient (CLI) | payer MEDICARE, OTHER | END | disposition home or self-care (01) | LOC: SDC 02:08 → EDSTATUS 09:00 → SDC 09:00 | PROVIDERS: ATTEND Specialist | DX: R59.0 Localized enlarged lymph nodes (principal) ==

== ENCOUNTER 2023-04-30 20:56 | Emergency (ER) | payer MEDICARE, OTHER ==
[~2023-04-30] VITALS: Ht 175.2 cm; Wt 117.9 kg
[2023-04-30] MEDS ORDERED: ADDERALL 20 MG20 MG PO (21:19)
== END 2023-04-30 22:51 | disposition home or self-care (01) ==
LOC: ED 20:56
DX: R00.2 Palpitations (principal); F41.9 Anxiety disorder, unspecified; F32.A Depression, unspecified; K21.9 Gastro-esophageal reflux disease without esophagitis; J44.9 Chronic obstructive pulmonary disease, unspecified; I48.91 Unspecified atrial fibrillation; Z88.0 Allergy status to penicillin; Z88.2 Allergy status to sulfonamides; Z88.8 Allergy status to other drugs, medicaments and biological substances; Z91.018 Allergy to other foods; Z98.890 Other specified postprocedural states; Z90.89 Acquired absence of other organs; Z90.710 Acquired absence of both cervix and uterus

== ENCOUNTER 2023-05-23 16:55 | Inpatient (IN) | payer MEDICARE, OTHER ==
[~2023-05-23] VITALS: Ht 172.7 cm; Wt 115.3 kg
[2023-05-23 17:05] VITALS: BP 140/94
[2023-05-23 23:33] VITALS: BP 129/85
[2023-05-24] VITALS (7 sets, daily range): BP systolic 99–130; BP diastolic 49–72
[2023-05-24 00:27] LABS: BASO % 0.1 % (0.0-1.0); HEMATOCRIT 41.1 % (37.0-47.0); LYMPH % 28.5 % (27.0-41.0); MEAN CELL VOLUME 79.5 fl (81.0-99.0); MEAN CORPUSCULAR HGB 23.4 pg (27.0-31.0); MEAN CORPUSCULAR HGB CONC 29.4 g/dl (33.0-37.0); MONO # 0.6 10*3/uL (0.1-1.0); MONO % 5.6 % (3.0-9.0); NEUT # 6.8 10*3/uL (2.3-7.9); NEUT % 65.7 % (47.0-73.0); PLATELET COUNT AUTOMATED 248 10*3/uL (130-400); RED BLOOD COUNT 5.17 10*6/uL (4.10-5.10); RED CELL DISTRI WIDTH 16.4 % (0-14.5); WHITE BLOOD COUNT 10.4 10*3/uL (4.8-10.8)
[2023-05-24 00:53] LABS: ABG BASE EXCESS -0.7 mmol/L (-2.0-2.0); ARTERIAL BLOOD GAS PH 7.442 (7.35-7.45)
[2023-05-24 01:27] LABS: ALKALINE PHOSPHATASE 74 U/L (46-116); BUN 9 mg/dl (9-23); CHLORIDE 109 mmol/L (98-107); POTASSIUM 3.9 mmol/L (3.4-5.1); SGPT/ALT 9 U/L (5-49); TOTAL PROTEIN 6.6 gm/dL (6.0-8.0)
[2023-05-24] MEDS ORDERED: SINGULAIR10 M1 PO (01:32)
[2023-05-24] MEDS ORDERED: MUCINEX DM ER1 EACH PO (01:34)
[2023-05-24] MEDS ORDERED: OMEPRAZOLE40 MG PO (01:36)
[2023-05-24] MEDS ORDERED: ADDERALL 20 MG20 MG PO (01:37)
[2023-05-24 06:30] LABS: ALKALINE PHOSPHATASE 76 U/L (46-116); BUN 9 mg/dl (9-23); CHLORIDE 108 mmol/L (98-107); CHOLESTEROL 156 mg/dL (<200); FREE T4 1.01 ng/dl (0.89-1.76); LDL CHOLESTEROL 81 mg/dL (9-159); SGPT/ALT 9 U/L (5-49); TOTAL PROTEIN 6.6 gm/dL (6.0-8.0); TRIGLYCERIDES 184 mg/dl (<150)
[2023-05-24 06:42] LABS: BASO % 0.1 % (0.0-1.0); HEMATOCRIT 39.3 % (37.0-47.0); LYMPH # 1.3 10*3/uL (1.3-4.4); LYMPH % 15.4 % (27.0-41.0); MEAN CELL VOLUME 78.1 fl (81.0-99.0); MEAN CORPUSCULAR HGB 24.1 pg (27.0-31.0); MEAN CORPUSCULAR HGB CONC 30.8 g/dl (33.0-37.0); MEAN PLATELET VOLUME 9.2 fl (9.6-12.3); MONO # 0.5 10*3/uL (0.1-1.0); MONO % 6.1 % (3.0-9.0); NEUT # 6.7 10*3/uL (2.3-7.9); NEUT % 78.2 % (47.0-73.0); PLATELET COUNT AUTOMATED 238 10*3/uL (130-400); RED BLOOD COUNT 5.03 10*6/uL (4.10-5.10); RED CELL DISTRI WIDTH 16.6 % (0-14.5); WHITE BLOOD COUNT 8.6 10*3/uL (4.8-10.8)
[2023-05-24 07:47] LABS: VITAMIN D, 25-HYDROXY 17.7 ng/mL (30-100)
[2023-05-25] VITALS: BP 121/73
[2023-05-25 05:57] LABS: BUN 11 mg/dl (9-23); CHLORIDE 106 mmol/L (98-107); POTASSIUM 4.1 mmol/L (3.4-5.1)
[2023-05-25 06:08] LABS: BASO % 0.2 % (0.0-1.0); HEMATOCRIT 36.2 % (37.0-47.0); LYMPH # 0.4 10*3/uL (1.3-4.4); LYMPH % 8.2 % (27.0-41.0); MEAN CELL VOLUME 78.2 fl (81.0-99.0); MEAN CORPUSCULAR HGB 23.5 pg (27.0-31.0); MEAN CORPUSCULAR HGB CONC 30.1 g/dl (33.0-37.0); MEAN PLATELET VOLUME 9.8 fl (9.6-12.3); MONO # 0.4 10*3/uL (0.1-1.0); MONO % 8.6 % (3.0-9.0); NEUT # 3.8 10*3/uL (2.3-7.9); NEUT % 82.6 % (47.0-73.0); PLATELET COUNT AUTOMATED 260 10*3/uL (130-400); RED BLOOD COUNT 4.63 10*6/uL (4.10-5.10); RED CELL DISTRI WIDTH 16.6 % (0-14.5); WHITE BLOOD COUNT 4.6 10*3/uL (4.8-10.8)
[2023-05-25 08:00] VITALS: BP 121/75
[2023-05-25 12:00] VITALS: BP 108/71
[2023-05-25 16:00] VITALS: BP 110/50
[2023-05-25 20:00] VITALS: BP 127/75
[2023-05-26] VITALS: BP 122/99
[2023-05-26 05:02] LABS: BUN 15 mg/dl (9-23); CHLORIDE 106 mmol/L (98-107); POTASSIUM 4.2 mmol/L (3.4-5.1)
[2023-05-26 06:10] LABS: HEMATOCRIT 41.1 % (37.0-47.0); LYMPH # 0.5 10*3/uL (1.3-4.4); LYMPH % 5.3 % (27.0-41.0); MEAN CELL VOLUME 79.3 fl (81.0-99.0); MEAN CORPUSCULAR HGB 23.7 pg (27.0-31.0); MEAN CORPUSCULAR HGB CONC 29.9 g/dl (33.0-37.0); MEAN PLATELET VOLUME 9.8 fl (9.6-12.3); MONO # 0.5 10*3/uL (0.1-1.0); MONO % 5.5 % (3.0-9.0); NEUT # 8.2 10*3/uL (2.3-7.9); NEUT % 88.8 % (47.0-73.0); PLATELET COUNT AUTOMATED 286 10*3/uL (130-400); RED BLOOD COUNT 5.18 10*6/uL (4.10-5.10); RED CELL DISTRI WIDTH 16.7 % (0-14.5); WHITE BLOOD COUNT 9.3 10*3/uL (4.8-10.8)
[2023-05-26 08:00] VITALS: BP 106/65
[2023-05-26 12:00] VITALS: BP 103/57
[2023-05-26 16:00] VITALS: BP 110/63
[2023-05-26 20:00] VITALS: BP 100/57
[2023-05-27] VITALS: BP 111/61
[2023-05-27 08:00] VITALS: BP 125/69
[2023-05-27 10:52] LABS: BILIRUBIN Negative (Negative); BLOOD Negative (Negative); CLARITY Cloudy (Clear); COLOR Yellow (Yellow); GLUCOSE Negative (Negative); KETONE Negative (Negative); LEUKO ESTERASE 1+ (Negative); NITRITE Negative (Negative); SPECIFIC GRAVITY >= 1.030 (1.001-1.030); UROBILINOGEN 0.2 E.U./dl (0.0-1.0)
[2023-05-27 11:15] LABS: BACTERIA 4+; EPITHELIAL CELLS TNTC
[2023-05-27 12:00] VITALS: BP 118/73
[2023-05-27 16:00] VITALS: BP 119/77
[2023-05-27 20:00] VITALS: BP 106/67
[2023-05-28] VITALS: BP 127/84
[2023-05-28 08:00] VITALS: BP 97/61
[2023-05-28] MEDS ORDERED: PREDNISONE10 MG PO (11:38)
[2023-05-28] MEDS ORDERED: LEVOFLOXACIN750 M2 PO (11:38)
[2023-05-28] MEDS ORDERED: NEBULIZER (11:38)
[2023-05-28] MEDS ORDERED: ONDANSETRON4 MG SL (11:38)
[2023-05-28 12:00] VITALS: BP 130/83
== END 2023-05-28 13:40 | disposition home or self-care (01) | DRG 871 ==
LOC: ED 16:55 → EDHOLD 21:56 → 5E 21:56
PROVIDERS: Internal Medicine; Student in an Organized Health Care Education/Training Program; ADMIT Student in an Organized Health Care Education/Training Program; ATTEND Student in an Organized Health Care Education/Training Program
DX: A41.9 Sepsis, unspecified organism (principal); J18.9 Pneumonia, unspecified organism; J96.01 Acute respiratory failure with hypoxia; J45.51 Severe persistent asthma with (acute) exacerbation; I50.32 Chronic diastolic (congestive) heart failure; G47.33 Obstructive sleep apnea (adult) (pediatric); E66.9 Obesity, unspecified; R65.20 Severe sepsis without septic shock; E87.8 Other disorders of electrolyte and fluid balance, not elsewhere classified; R71.8 Other abnormality of red blood cells; K21.00 Gastro-esophageal reflux disease with esophagitis, without bleeding; E11.43 Type 2 diabetes mellitus with diabetic autonomic (poly)neuropathy; K31.84 Gastroparesis; Z20.822 Contact with and (suspected) exposure to COVID-19; Z88.1 Allergy status to other antibiotic agents; Z88.0 Allergy status to penicillin; Z88.8 Allergy status to other drugs, medicaments and biological substances; Z90.710 Acquired absence of both cervix and uterus; Z80.1 Family history of malignant neoplasm of trachea, bronchus and lung; Z80.8 Family history of malignant neoplasm of other organs or systems; Z87.11 Personal history of peptic ulcer disease; Z68.38 Body mass index [BMI] 38.0-38.9, adult

== ENCOUNTER 2023-08-27 15:56 | Emergency (ER) | payer MEDICARE, OTHER ==
[~2023-08-27 15:56] MED LIST changes: +LEVOFLOXACIN750 M2 PO; +MUCINEX DM ER1 EACH PO; +ONDANSETRON4 MG SL
[2023-08-27 16:12] LABS: BASO % 0.2 % (0.0-1.0); LYMPH # 2.8 10*3/uL (1.3-4.4); LYMPH % 29.6 % (27.0-41.0); MEAN CELL VOLUME 77.5 fl (81.0-99.0); MEAN CORPUSCULAR HGB 22.9 pg (27.0-31.0); MEAN CORPUSCULAR HGB CONC 29.5 g/dl (33.0-37.0); MEAN PLATELET VOLUME 8.5 fl (9.6-12.3); MONO # 0.7 10*3/uL (0.1-1.0); MONO % 7.1 % (3.0-9.0); NEUT # 5.9 10*3/uL (2.3-7.9); NEUT % 62.9 % (47.0-73.0); PLATELET COUNT AUTOMATED 279 10*3/uL (130-400); RED BLOOD COUNT 5.03 10*6/uL (4.10-5.10); WHITE BLOOD COUNT 9.4 10*3/uL (4.8-10.8)
[2023-08-27 16:27] LABS: BUN 12 mg/dl (9-23); CHLORIDE 109 mmol/L (98-107); POTASSIUM 3.5 mmol/L (3.4-5.1)
== END 2023-08-27 19:06 | disposition home or self-care (01) ==
LOC: ED 15:56
PROVIDERS: Nurse Practitioner Family
DX: I47.10 Supraventricular tachycardia, unspecified (principal); J45.909 Unspecified asthma, uncomplicated; F41.9 Anxiety disorder, unspecified; F32.A Depression, unspecified; K21.9 Gastro-esophageal reflux disease without esophagitis; J44.9 Chronic obstructive pulmonary disease, unspecified; I48.91 Unspecified atrial fibrillation; Z88.0 Allergy status to penicillin; Z88.2 Allergy status to sulfonamides; Z91.018 Allergy to other foods; Z88.8 Allergy status to other drugs, medicaments and biological substances; Z90.710 Acquired absence of both cervix and uterus; Z90.89 Acquired absence of other organs; Z98.890 Other specified postprocedural states

== ENCOUNTER 2023-09-26 03:38 | Emergency (ER) | payer MEDICARE, OTHER ==
[~2023-09-26] VITALS: Ht 172.7 cm; Wt 119.4 kg
[2023-09-26] MEDS ORDERED: methylPREDNISolone sod succ 125 MG VIAL IV ONE (05:05)
== END 2023-09-26 06:41 | disposition short-term general hospital (02) ==
LOC: ED 03:38
DX: K45.8 Other specified abdominal hernia without obstruction or gangrene (principal); J45.909 Unspecified asthma, uncomplicated; F41.9 Anxiety disorder, unspecified; F32.A Depression, unspecified; K21.9 Gastro-esophageal reflux disease without esophagitis; J44.9 Chronic obstructive pulmonary disease, unspecified; I48.91 Unspecified atrial fibrillation; Z88.0 Allergy status to penicillin; Z88.2 Allergy status to sulfonamides; Z91.018 Allergy to other foods; Z88.8 Allergy status to other drugs, medicaments and biological substances; Z90.710 Acquired absence of both cervix and uterus; Z90.89 Acquired absence of other organs; Z98.890 Other specified postprocedural states

== ENCOUNTER → 2023-10-17 | Outpatient (CLI) | payer MEDICARE, OTHER ==
[~2023-10-17] MED LIST changes: +HEPARIN SODIUM 500 UNIT/5 ML SYR IV ONE; +HEPARIN SODIUM 500 UNIT/5 ML SYR IV SCH; +SODIUM CHLORIDE 0.9% 10 ML SYR IV PRN
== END | disposition home or self-care (01) ==
LOC: MEDIPORT 09:30
PROVIDERS: ATTEND Internal Medicine
DX: Z45.2 Encounter for adjustment and management of vascular access device (principal)

== ENCOUNTER → 2023-11-16 | Outpatient (CLI) | payer MEDICARE, OTHER ==
[~2023-11-16] MED LIST changes: -HEPARIN SODIUM 500 UNIT/5 ML SYR IV SCH; -SODIUM CHLORIDE 0.9% 10 ML SYR IV PRN
== END | disposition home or self-care (01) ==
LOC: MEDIPORT 09:30
PROVIDERS: ATTEND Internal Medicine
DX: Z45.2 Encounter for adjustment and management of vascular access device (principal)

== ENCOUNTER → 2023-12-14 | Outpatient (CLI) | payer MEDICARE, OTHER ==
[~2023-12-14] MED LIST changes: -HEPARIN SODIUM 500 UNIT/5 ML SYR IV ONE; +HEPARIN SODIUM 500 UNIT/5 ML SYR IV SCH; +SODIUM CHLORIDE 0.9% 10 ML SYR IV PRN
== END | disposition home or self-care (01) ==
LOC: MEDIPORT 10:53
PROVIDERS: ATTEND Internal Medicine
DX: Z45.2 Encounter for adjustment and management of vascular access device (principal)

== ENCOUNTER 2024-01-24 16:50 | Emergency (ER) | payer MEDICARE, OTHER ==
[~2024-01-24] VITALS: Ht 175.2 cm; Wt 113.4 kg
[~2024-01-24 16:50] MED LIST changes: -HEPARIN SODIUM 500 UNIT/5 ML SYR IV SCH; -SODIUM CHLORIDE 0.9% 10 ML SYR IV PRN
[2024-01-24] MEDS ORDERED: MORPHINE Sulfate 2 MG/ML SYR IM ONE (17:25)
[2024-01-24 17:28] LABS: BASO % 0.1 % (0.0-1.0); HEMATOCRIT 36.5 % (37.0-47.0); LYMPH # 3.3 10*3/uL (1.3-4.4); MEAN CELL VOLUME 78.7 fl (81.0-99.0); MEAN CORPUSCULAR HGB 24.1 pg (27.0-31.0); MEAN CORPUSCULAR HGB CONC 30.7 g/dl (33.0-37.0); MEAN PLATELET VOLUME 8.9 fl (9.6-12.3); MONO # 0.6 10*3/uL (0.1-1.0); MONO % 6.7 % (3.0-9.0); NEUT # 4.4 10*3/uL (2.3-7.9); NEUT % 53.1 % (47.0-73.0); PLATELET COUNT AUTOMATED 268 10*3/uL (130-400); RED BLOOD COUNT 4.64 10*6/uL (4.10-5.10); RED CELL DISTRI WIDTH 16.7 % (0-14.5); VENOUS BLOOD GAS O2 SAT 80.9 % (60.0-85.0); WHITE BLOOD COUNT 8.3 10*3/uL (4.8-10.8)
[2024-01-24] MEDS ORDERED: NITROGLYCERIN 0.2 MG PATCH T ONE (17:30)
[2024-01-24 17:50] LABS: ALKALINE PHOSPHATASE 99 U/L (46-116); BUN 11 mg/dl (9-23); CHLORIDE 110 mmol/L (98-107); POTASSIUM 3.6 mmol/L (3.4-5.1); SGPT/ALT 9 U/L (5-49); TOTAL PROTEIN 6.3 gm/dL (6.0-8.0)
[2024-01-24 18:19] LABS: BILIRUBIN Negative (Negative); BLOOD Negative (Negative); CLARITY Clear (Clear); COLOR Yellow (Yellow); GLUCOSE Negative (Negative); KETONE Trace (Negative); LEUKO ESTERASE 1+ (Negative); NITRITE Negative (Negative); PH 6.5 (4.5-8.0)
[2024-01-24 18:24] LABS: BACTERIA 1+; MUCOUS 1+
[2024-01-24 18:25] LABS: URINE AMPHETAMINES Negative (1000ng/ml); URINE BARBITURATES Negative (200ng/ml); URINE BENZODIAZEPINES Negative (200ng/ml); URINE CANNABINOIDS (THC) Positive (50ng/ml); URINE COCAINE Negative (300ng/ml); URINE METHADONE Negative (300ng/ml); URINE OPIATES Negative (300ng/ml); URINE PHENCYCLIDINE Negative (25ng/ml)
== END 2024-01-24 23:09 | disposition home or self-care (01) ==
LOC: ED 16:50
PROVIDERS: Emergency Medicine
DX: F41.9 Anxiety disorder, unspecified (principal); D50.9 Iron deficiency anemia, unspecified; R20.2 Paresthesia of skin; Z88.0 Allergy status to penicillin; Z88.2 Allergy status to sulfonamides; Z91.018 Allergy to other foods; Z88.8 Allergy status to other drugs, medicaments and biological substances; Z88.1 Allergy status to other antibiotic agents; Z79.2 Long term (current) use of antibiotics; Z90.710 Acquired absence of both cervix and uterus; Z98.890 Other specified postprocedural states; Z90.89 Acquired absence of other organs; Z96.22 Myringotomy tube(s) status

== ENCOUNTER 2024-02-03 08:38 | Emergency (ER) | payer MEDICARE, OTHER ==
[2024-02-03 09:28] LABS: BASO % 0.3 % (0.0-1.0); HEMATOCRIT 38.3 % (37.0-47.0); LYMPH # 2.6 10*3/uL (1.3-4.4); LYMPH % 32.3 % (27.0-41.0); MEAN CELL VOLUME 78.5 fl (81.0-99.0); MEAN CORPUSCULAR HGB 24.2 pg (27.0-31.0); MEAN CORPUSCULAR HGB CONC 30.8 g/dl (33.0-37.0); MONO # 0.5 10*3/uL (0.1-1.0); MONO % 6.7 % (3.0-9.0); NEUT # 4.8 10*3/uL (2.3-7.9); NEUT % 60.6 % (47.0-73.0); PLATELET COUNT AUTOMATED 248 10*3/uL (130-400); RED BLOOD COUNT 4.88 10*6/uL (4.10-5.10); RED CELL DISTRI WIDTH 16.6 % (0-14.5)
[2024-02-03 09:39] LABS: ACT PARTIAL THROMBO TIME 26.8 SECONDS (20.0-32.1)
[2024-02-03] MEDS ORDERED: Albuterol Sulf/Ipratropium 3 ML VIAL NEB ONE (09:40)
[2024-02-03 09:48] LABS: BUN 12 mg/dl (9-23); CHLORIDE 109 mmol/L (98-107); POTASSIUM 3.5 mmol/L (3.4-5.1)
[2024-02-03] MEDS ORDERED: MG-AL HYDROXIDE/SIMETICONE 30 ML UDC PO STA (11:09)
[2024-02-03] MEDS ORDERED: Lidocaine Hydrochloride 15 ML UDC PO STA (11:09)
[2024-02-03] MEDS ORDERED: Dicyclomine Hydrochloride 20 MG/10 ML OSYR PO STA (11:09)
[2024-02-03] MEDS ORDERED: HEPARIN SODIUM 500 UNIT/5 ML SYR IV ONE (12:30)
== END 2024-02-03 12:39 | disposition home or self-care (01) ==
LOC: ED 08:38
PROVIDERS: Internal Medicine
DX: K20.90 Esophagitis, unspecified without bleeding (principal); J44.9 Chronic obstructive pulmonary disease, unspecified; F41.9 Anxiety disorder, unspecified; F32.A Depression, unspecified; K21.9 Gastro-esophageal reflux disease without esophagitis; I48.91 Unspecified atrial fibrillation; R10.2 Pelvic and perineal pain; Z88.0 Allergy status to penicillin; Z88.2 Allergy status to sulfonamides; Z91.018 Allergy to other foods; Z88.8 Allergy status to other drugs, medicaments and biological substances; Z90.710 Acquired absence of both cervix and uterus; Z90.89 Acquired absence of other organs; Z98.890 Other specified postprocedural states

== ENCOUNTER → 2024-04-17 | Outpatient (CLI) | payer MEDICARE, OTHER ==
[~2024-04-17] MED LIST changes: +HEPARIN SODIUM 500 UNIT/5 ML SYR IV ONE; +HEPARIN SODIUM 500 UNIT/5 ML SYR IV SCH; +SODIUM CHLORIDE 0.9% 10 ML SYR IV PRN
[2024-04-17 10:45] VITALS: BP 114/68
== END | disposition home or self-care (01) ==
LOC: MEDIPORT 04:13
PROVIDERS: ATTEND Internal Medicine
DX: Z45.2 Encounter for adjustment and management of vascular access device (principal); I10 Essential (primary) hypertension

== ENCOUNTER → 2024-05-15 | Outpatient (CLI) | payer MEDICARE, OTHER | END | disposition home or self-care (01) | LOC: MEDIPORT 10:29 | PROVIDERS: ATTEND Internal Medicine | DX: Z45.2 Encounter for adjustment and management of vascular access device (principal); F41.9 Anxiety disorder, unspecified; J45.901 Unspecified asthma with (acute) exacerbation; K21.9 Gastro-esophageal reflux disease without esophagitis; Z90.89 Acquired absence of other organs; Z90.710 Acquired absence of both cervix and uterus; Z88.0 Allergy status to penicillin; Z88.2 Allergy status to sulfonamides; Z88.8 Allergy status to other drugs, medicaments and biological substances ==

== ENCOUNTER → 2024-06-12 | Outpatient (CLI) | payer MEDICARE, OTHER ==
[~2024-06-12] MED LIST changes: -HEPARIN SODIUM 500 UNIT/5 ML SYR IV ONE
== END | disposition home or self-care (01) ==
LOC: MEDIPORT 10:18
PROVIDERS: ATTEND Internal Medicine
DX: Z45.2 Encounter for adjustment and management of vascular access device (principal); F41.9 Anxiety disorder, unspecified; J45.901 Unspecified asthma with (acute) exacerbation

== ENCOUNTER 2024-09-26 17:44 | Emergency (ER) | payer MEDICARE, OTHER ==
[~2024-09-26] VITALS: Ht 170.1 cm; Wt 122.5 kg
[~2024-09-26 17:44] MED LIST changes: +ATARAX,VISTARIL50 MG PO; +ELIQUIS5 M1 PO; -HEPARIN SODIUM 500 UNIT/5 ML SYR IV SCH; -SODIUM CHLORIDE 0.9% 10 ML SYR IV PRN
[2024-09-26] MEDS ORDERED: Dexamethasone Sodium Phospha 20 MG/5 ML VIAL IM ONE (18:40)
== END 2024-09-26 19:00 | disposition home or self-care (01) ==
LOC: ED 17:44
DX: S20.219A Contusion of unspecified front wall of thorax, initial encounter (principal); M54.6 Pain in thoracic spine; R55 Syncope and collapse; J45.909 Unspecified asthma, uncomplicated; Z53.29 Procedure and treatment not carried out because of patient's decision for other reasons; Z88.0 Allergy status to penicillin; Z88.2 Allergy status to sulfonamides; Z91.018 Allergy to other foods; Z88.8 Allergy status to other drugs, medicaments and biological substances; Z79.899 Other long term (current) drug therapy; Z90.711 Acquired absence of uterus with remaining cervical stump; Z90.89 Acquired absence of other organs; Z96.22 Myringotomy tube(s) status; W18.39XA Other fall on same level, initial encounter; Y93.89 Activity, other specified; Y92.89 Other specified places as the place of occurrence of the external cause; Y99.8 Other external cause status

== ENCOUNTER 2024-10-15 21:43 | Emergency (ER) | payer MEDICARE, OTHER ==
[~2024-10-15] VITALS: Ht 167.6 cm; Wt 113.4 kg
[2024-10-15] MEDS ORDERED: SODIUM CHLORIDE 0.9% 1,000 ML IV ONE (21:50)
[2024-10-15 22:36] LABS: BASO % 0.2 % (0.0-1.0); EOS % 0.1 % (1.0-4.0); HEMATOCRIT 37.6 % (37.0-47.0); MEAN CELL VOLUME 78.3 fl (81.0-99.0); MEAN CORPUSCULAR HGB 23.8 pg (27.0-31.0); MEAN CORPUSCULAR HGB CONC 30.3 g/dl (33.0-37.0); MEAN PLATELET VOLUME 8.9 fl (9.6-12.3); MONO # 0.5 10*3/uL (0.1-1.0); MONO % 5.2 % (3.0-9.0); NEUT # 5.5 10*3/uL (2.3-7.9); NEUT % 61.4 % (47.0-73.0); PLATELET COUNT AUTOMATED 309 10*3/uL (130-400); RED CELL DISTRI WIDTH 17.2 % (0-14.5)
[2024-10-15 22:56] LABS: BUN 15 mg/dl (9-23); CHLORIDE 108 mmol/L (98-107); POTASSIUM 3.6 mmol/L (3.4-5.1)
== END 2024-10-16 00:35 | disposition home or self-care (01) ==
LOC: ED 21:43
PROVIDERS: Internal Medicine
DX: R00.2 Palpitations (principal); J45.909 Unspecified asthma, uncomplicated; K21.9 Gastro-esophageal reflux disease without esophagitis; F32.A Depression, unspecified; F41.9 Anxiety disorder, unspecified; Z79.899 Other long term (current) drug therapy; Z88.0 Allergy status to penicillin; Z88.1 Allergy status to other antibiotic agents; Z88.2 Allergy status to sulfonamides; Z88.8 Allergy status to other drugs, medicaments and biological substances; Z90.710 Acquired absence of both cervix and uterus; Z90.89 Acquired absence of other organs; Z98.890 Other specified postprocedural states; J44.9 Chronic obstructive pulmonary disease, unspecified

== ENCOUNTER 2024-10-24 09:14 | Emergency (ER) | payer MEDICARE, OTHER ==
[2024-10-24] MEDS ORDERED: MORPHINE Sulfate 2 MG/ML SYR IV ONE (09:20)
[2024-10-24] MEDS ORDERED: Ondansetron Hydrochloride 4 MG/2 ML VIAL IV ONE (09:20)
[2024-10-24] MEDS ORDERED: SODIUM CHLORIDE 0.9% 1,000 ML IV ONE (09:20)
[2024-10-24] MEDS ORDERED: LORazepam 1 MG TAB PO ONE (09:25)
[2024-10-24] MEDS ORDERED: Ketorolac Tromethamine 15 MG/ML VIAL IV ONE (09:25)
[2024-10-24 09:41] LABS: BASO % 0.2 % (0.0-1.0); EOS # 0.2 10*3/uL (0.0-0.4); EOS % 2.4 % (1.0-4.0); HEMATOCRIT 40.3 % (37.0-47.0); MEAN CELL VOLUME 78.7 fl (81.0-99.0); MEAN CORPUSCULAR HGB 23.4 pg (27.0-31.0); MEAN CORPUSCULAR HGB CONC 29.8 g/dl (33.0-37.0); MEAN PLATELET VOLUME 8.7 fl (9.6-12.3); MONO # 0.6 10*3/uL (0.1-1.0); MONO % 6.9 % (3.0-9.0); NEUT # 4.3 10*3/uL (2.3-7.9); NEUT % 50.7 % (47.0-73.0); PLATELET COUNT AUTOMATED 289 10*3/uL (130-400); RED BLOOD COUNT 5.12 10*6/uL (4.10-5.10); RED CELL DISTRI WIDTH 17.2 % (0-14.5); WHITE BLOOD COUNT 8.4 10*3/uL (4.8-10.8)
[2024-10-24 10:00] LABS: BUN 14 mg/dl (9-23); CHLORIDE 107 mmol/L (98-107); POTASSIUM 3.9 mmol/L (3.4-5.1)
[2024-10-24] MEDS ORDERED: XARELTO1 EACH PO (10:30)
[2024-10-24] MEDS ORDERED: HEPARIN SODIUM 500 UNIT/5 ML SYR IV ONE (10:40)
== END 2024-10-24 10:22 | disposition home or self-care (01) ==
LOC: ED
PROVIDERS: Emergency Medicine
DX: R00.2 Palpitations (principal); R07.2 Precordial pain; J45.909 Unspecified asthma, uncomplicated; J44.9 Chronic obstructive pulmonary disease, unspecified; F41.9 Anxiety disorder, unspecified; F32.A Depression, unspecified; K21.9 Gastro-esophageal reflux disease without esophagitis; Z79.899 Other long term (current) drug therapy; Z88.0 Allergy status to penicillin; Z88.1 Allergy status to other antibiotic agents; Z88.2 Allergy status to sulfonamides; Z88.8 Allergy status to other drugs, medicaments and biological substances; Z90.710 Acquired absence of both cervix and uterus; Z90.89 Acquired absence of other organs; Z98.890 Other specified postprocedural states

== ENCOUNTER 2024-11-12 17:56 | Emergency (ER) | payer MEDICARE, OTHER ==
[~2024-11-12] VITALS: Wt 127.0 kg
[~2024-11-12 17:56] MED LIST changes: +XARELTO1 EACH PO
== END 2024-11-12 22:34 | disposition home or self-care (01) ==
LOC: ED 17:56
DX: S20.219A Contusion of unspecified front wall of thorax, initial encounter (principal); J45.909 Unspecified asthma, uncomplicated; J44.9 Chronic obstructive pulmonary disease, unspecified; K21.9 Gastro-esophageal reflux disease without esophagitis; F32.A Depression, unspecified; F41.9 Anxiety disorder, unspecified; Z79.899 Other long term (current) drug therapy; Z88.0 Allergy status to penicillin; Z88.1 Allergy status to other antibiotic agents; Z88.2 Allergy status to sulfonamides; Z88.6 Allergy status to analgesic agent; Z88.8 Allergy status to other drugs, medicaments and biological substances; Z91.018 Allergy to other foods; Z90.710 Acquired absence of both cervix and uterus; Z90.89 Acquired absence of other organs; Z98.890 Other specified postprocedural states; W18.39XA Other fall on same level, initial encounter; Y93.89 Activity, other specified; Y92.89 Other specified places as the place of occurrence of the external cause; Y99.8 Other external cause status

== ENCOUNTER → 2025-01-07 | Outpatient (CLI) | payer MEDICARE, OTHER ==
[~2025-01-07] MED LIST changes: +BENRALIZUMAB 30 MG/ML SYRINGE SQ ONE; +CLINDAMYCIN HC300 MG PO; +Depakote250 MG PO; +HEPARIN SODIUM 500 UNIT/5 ML SYR IV ONE; +HEPARIN SODIUM 500 UNIT/5 ML SYR IV SCH; +SODIUM CHLORIDE 0.9% 10 ML SYR IV PRN
[2025-01-07 10:04] VITALS: BP 142/89
== END | disposition home or self-care (01) ==
LOC: INJECTION 09:49 → MEDIPORT 09:49 → INJECTION 10:00
PROVIDERS: ATTEND Internal Medicine Critical Care Medicine
DX: Z45.2 Encounter for adjustment and management of vascular access device (principal); F41.9 Anxiety disorder, unspecified; F32.A Depression, unspecified; K21.9 Gastro-esophageal reflux disease without esophagitis; J44.9 Chronic obstructive pulmonary disease, unspecified; G47.33 Obstructive sleep apnea (adult) (pediatric); I48.91 Unspecified atrial fibrillation; Z90.710 Acquired absence of both cervix and uterus; Z90.89 Acquired absence of other organs; Z87.891 Personal history of nicotine dependence

== ENCOUNTER → 2025-01-09 | Outpatient (CLI) | payer MEDICARE, OTHER ==
[~2025-01-09] MED LIST changes: -BENRALIZUMAB 30 MG/ML SYRINGE SQ ONE; -HEPARIN SODIUM 500 UNIT/5 ML SYR IV ONE; -HEPARIN SODIUM 500 UNIT/5 ML SYR IV SCH; -SODIUM CHLORIDE 0.9% 10 ML SYR IV PRN
== END ==
LOC: INJECTION 12:00
PROVIDERS: ATTEND Internal Medicine Critical Care Medicine
DX: J45.40 Moderate persistent asthma, uncomplicated (principal); F41.9 Anxiety disorder, unspecified; F32.A Depression, unspecified; K21.9 Gastro-esophageal reflux disease without esophagitis; J44.9 Chronic obstructive pulmonary disease, unspecified; G47.33 Obstructive sleep apnea (adult) (pediatric); I48.91 Unspecified atrial fibrillation; Z90.89 Acquired absence of other organs; Z90.710 Acquired absence of both cervix and uterus; Z87.891 Personal history of nicotine dependence

== ENCOUNTER 2025-01-16 05:39 | Emergency (ER) | payer MEDICARE, OTHER ==
[~2025-01-16] VITALS: Ht 172.7 cm; Wt 124.4 kg
[~2025-01-16 05:39] MED LIST changes: -CLINDAMYCIN HC300 MG PO
[2025-01-16 06:07] LABS: BASO # 0.0 10*3/uL (0.0-0.1); BASO % 0.2 % (0.0-1.0); EOS # 0.0 10*3/uL (0.0-0.4); EOS % 0.0 % (1.0-4.0); MEAN CELL VOLUME 80.5 fl (81.0-99.0); MEAN CORPUSCULAR HGB 24.2 pg (27.0-31.0); MEAN PLATELET VOLUME 9.1 fl (9.6-12.3); MONO # 0.7 10*3/uL (0.1-1.0); MONO % 7.5 % (3.0-9.0); NEUT # 4.7 10*3/uL (2.3-7.9); NEUT % 48.2 % (47.0-73.0); NUCLEATED RED BLOOD CELL 0.0 % (0.0-0.0); NUCLEATED RED BLOOD CELL 0.0 10*3/uL (0.0-0.0); PLATELET COUNT AUTOMATED 300 10*3/uL (130-400); RED CELL DISTRI WIDTH 16.7 % (0-14.5)
[2025-01-16 06:16] LABS: BUN 14 mg/dl (9-23)
[2025-01-16] MEDS ORDERED: LORazepam 1 MG TAB PO ONE (07:25)
[2025-01-16] MEDS ORDERED: CLINDAMYCIN HCL 300 MG CAPSULE PO ONE (07:25)
[2025-01-16] MEDS ORDERED: CLINDAMYCIN HC300 MG PO (07:26)
== END 2025-01-16 07:38 | disposition home or self-care (01) ==
LOC: ED 05:39
PROVIDERS: Internal Medicine
DX: R07.89 Other chest pain (principal); L03.311 Cellulitis of abdominal wall; R06.02 Shortness of breath; R61 Generalized hyperhidrosis; R25.1 Tremor, unspecified; Z88.0 Allergy status to penicillin; Z88.2 Allergy status to sulfonamides; Z88.8 Allergy status to other drugs, medicaments and biological substances; Z91.018 Allergy to other foods; Z79.899 Other long term (current) drug therapy; Z90.710 Acquired absence of both cervix and uterus; Z90.89 Acquired absence of other organs

== ENCOUNTER → 2025-03-06 | Outpatient (CLI) | payer MEDICARE, OTHER ==
[~2025-03-06] MED LIST changes: +BENRALIZUMAB 30 MG/ML SYRINGE SQ ONE; +CLINDAMYCIN HC300 MG PO; +HEPARIN SODIUM 500 UNIT/5 ML SYR IV ONE; +HEPARIN SODIUM 500 UNIT/5 ML SYR IV SCH; +SODIUM CHLORIDE 0.9% 10 ML SYR IV PRN
[2025-03-06 10:06] VITALS: BP 124/85
== END | disposition home or self-care (01) ==
LOC: INJECTION 09:56
PROVIDERS: ATTEND Internal Medicine Critical Care Medicine
DX: J45.50 Severe persistent asthma, uncomplicated (principal); J44.9 Chronic obstructive pulmonary disease, unspecified; G47.33 Obstructive sleep apnea (adult) (pediatric); F41.9 Anxiety disorder, unspecified; F32.A Depression, unspecified; K21.9 Gastro-esophageal reflux disease without esophagitis; I48.91 Unspecified atrial fibrillation; Z90.710 Acquired absence of both cervix and uterus; Z90.89 Acquired absence of other organs

== ENCOUNTER 2025-04-09 19:45 | Emergency (ER) | payer MEDICARE, OTHER ==
[~2025-04-09] VITALS: Ht 167.6 cm; Wt 128.8 kg
[~2025-04-09 19:45] MED LIST changes: -BENRALIZUMAB 30 MG/ML SYRINGE SQ ONE; -HEPARIN SODIUM 500 UNIT/5 ML SYR IV ONE; -HEPARIN SODIUM 500 UNIT/5 ML SYR IV SCH; -SODIUM CHLORIDE 0.9% 10 ML SYR IV PRN
[2025-04-09 20:01] LABS: BASO # 0.0 10*3/uL (0.0-0.1); BASO % 0.2 % (0.0-1.0); EOS # 0.0 10*3/uL (0.0-0.4); EOS % 0.0 % (1.0-4.0); MEAN CELL VOLUME 81.4 fl (81.0-99.0); MEAN CORPUSCULAR HGB 24.7 pg (27.0-31.0); MEAN PLATELET VOLUME 8.8 fl (9.6-12.3); MONO # 0.7 10*3/uL (0.1-1.0); MONO % 6.0 % (3.0-9.0); NEUT # 6.8 10*3/uL (2.3-7.9); NEUT % 61.0 % (47.0-73.0); NUCLEATED RED BLOOD CELL 0.0 % (0.0-0.0); NUCLEATED RED BLOOD CELL 0.0 10*3/uL (0.0-0.0); PLATELET COUNT AUTOMATED 334 10*3/uL (130-400); RED CELL DISTRI WIDTH 15.9 % (0-14.5)
[2025-04-09] MEDS ORDERED: SODIUM CHLORIDE 0.9% 1,000 ML IV ONE (20:05)
[2025-04-09 20:18] LABS: BUN 12 mg/dl (9-23)
[2025-04-09] MEDS ORDERED: Naloxone Hydrochloride 2 MG/2 ML SYR ONE ×2 (23:16→23:18)
== END 2025-04-10 00:06 | disposition home or self-care (01) ==
LOC: ED 19:45
PROVIDERS: Internal Medicine
DX: I47.10 Supraventricular tachycardia, unspecified (principal); F41.9 Anxiety disorder, unspecified; F32.A Depression, unspecified; K21.9 Gastro-esophageal reflux disease without esophagitis; J44.89 Other specified chronic obstructive pulmonary disease; G47.30 Sleep apnea, unspecified; I48.91 Unspecified atrial fibrillation; Z90.710 Acquired absence of both cervix and uterus; Z90.89 Acquired absence of other organs; Z88.0 Allergy status to penicillin; Z88.2 Allergy status to sulfonamides; Z88.8 Allergy status to other drugs, medicaments and biological substances; Z91.018 Allergy to other foods

== ENCOUNTER → 2025-05-01 | Outpatient (CLI) | payer MEDICARE, OTHER ==
[~2025-05-01] MED LIST changes: +BENRALIZUMAB 30 MG/ML SYRINGE SQ ONE; +FASENRA SQ; +ZYRTEC10 M2 PO
[2025-05-01 09:47] VITALS: BP 111/75
== END | disposition home or self-care (01) ==
LOC: INJECTION 09:36
PROVIDERS: ATTEND Internal Medicine Critical Care Medicine
DX: J45.50 Severe persistent asthma, uncomplicated (principal); G47.33 Obstructive sleep apnea (adult) (pediatric); J30.2 Other seasonal allergic rhinitis; F41.9 Anxiety disorder, unspecified; F32.A Depression, unspecified; K21.9 Gastro-esophageal reflux disease without esophagitis; J44.9 Chronic obstructive pulmonary disease, unspecified; Z90.710 Acquired absence of both cervix and uterus; Z68.41 Body mass index [BMI] 40.0-44.9, adult; Z90.89 Acquired absence of other organs

== ENCOUNTER → 2025-05-07 | Outpatient (CLI) | payer MEDICARE, OTHER ==
[~2025-05-07] MED LIST changes: -BENRALIZUMAB 30 MG/ML SYRINGE SQ ONE; +Regadenoson 0.4 MG/5 ML SYR IV ONE; +Technetium Tc 99M Tetrofosmi 0.23 MG KIT IJ SCH
== END | disposition home or self-care (01) ==
LOC: CARD 01:17
PROVIDERS: ATTEND Nurse Practitioner Family
DX: I47.10 Supraventricular tachycardia, unspecified (principal); F41.9 Anxiety disorder, unspecified; R07.89 Other chest pain; R55 Syncope and collapse; Z86.711 Personal history of pulmonary embolism

== ENCOUNTER → 2025-05-14 | Outpatient (CLI) | payer MEDICARE, OTHER ==
[~2025-05-14] MED LIST changes: -Regadenoson 0.4 MG/5 ML SYR IV ONE; -Technetium Tc 99M Tetrofosmi 0.23 MG KIT IJ SCH
== END | disposition home or self-care (01) ==
LOC: RAD 14:33
PROVIDERS: ATTEND Nurse Practitioner Family
DX: K44.9 Diaphragmatic hernia without obstruction or gangrene (principal); I70.0 Atherosclerosis of aorta; Z86.711 Personal history of pulmonary embolism